=== PATIENT | male | born 1965 | race Caucasian/White ===

== ENCOUNTER 2017-09-08 08:45 | Day surgery (SDC) | payer BC ==
[2017-09-08 10:50] VITALS: BP 141/76; PULSE 76; RESP 20
--- NOTE | 2017-09-08 11:42 | US ---
EXAMINATION TYPE: US fine needle aspiration, US biopsy lymph node core biopsy DATE OF EXAM: 09/08/2017 HISTORY: Lymphadenopathy left axilla, axillary mass. Graft FINDINGS: Maximal barrier technique was ut ilized. The skin overlying a suitable path to the patient's mass was localized with ultrasound and t he overlying skin prepped and draped. Ultrasound was utilized with sterile technique. Lidocaine was used for local anesthesia. A single pass with a 25-gauge needle was made under ultrasound guidance a nd aspirated specimen submitted to cytology. A skin lala was made with a scalpel. An 18-gauge needl e was advanced under direct ultrasound guidance and core specimen obtained of the mass. Second core s pecimen obtained using similar technique. Specimen submitted in formalin to Pathology. Following the procedure, hemostasis achieved and the patient is discharged in stable condition without complicatio n. IMPRESSION:STATUS POST ULTRASOUND GUIDED CORE BIOPSY OF left axillary MASS, PATHOLOGY IS PENDING. TH IS PROCEDURE IS PERFORMED BY THE UNDERSIGNED.
== END 2017-09-08 10:50 | disposition home or self-care (01) ==
LOC: RADPROMAIN 08:45
PROVIDERS: ATTEND Internal Medicine Hematology & Oncology
DX: C85.14 Unspecified B-cell lymphoma, lymph nodes of axilla and upper limb (principal); C91.10 Chronic lymphocytic leukemia of B-cell type not having achieved remission
CPT/HCPCS: 10022; 38505; 76942; 88173; 88305; 88341; 88342

== ENCOUNTER 2018-06-24 20:11 | Observation (INO) | payer BC ==
[2018-06-24] MEDS ORDERED: ONDANSETRON 4 MG/2 ML VIAL IVP STA (20:57)
[2018-06-24] MEDS ORDERED: HYDROmorphone 1 MG/ML 1 ML SYRINGE IVP PRN ×2 (20:57→23:07)
[2018-06-24] MEDS ORDERED: SODIUM CHLORIDE 0.9% 1,000 ML IV STA (21:07)
[2018-06-24] MEDS ORDERED: SODIUM CHLORIDE 0.9% 500 ML 500 ML IV STA (21:07)
--- NOTE | 2018-06-24 21:16 | ED ---
General Adult HPI - General Chief complaint: Abdominal Pain Stated complaint: Abdominal Pain Source: patient, RN notes reviewed Mode of arrival: EMS Limitations: no limitations - History of Present Illness Initial comments: Chief complaint history of present illness a 53-year-old male with a known history of a reducible left inguinal hernia. Scheduled to have a herniorrhaphy in 5 days. Today low around 6:30 PM he developed acute severe tearing pain to the left inguinal region. Hernia doubled in size, size of a baseball and it was so painful made him pass out. Patient presents emergency room with a possible incarcerated hernia. Patient was immediately given analgesics, placed in Trendelenburg with an icepack on the inguinal region. Gentle manipulation cause discomfort. The case discussed with Dr. Espinal nutritional assistant for Dr. dr dejesus, he wants the patient to have a CAT scan with IV contrast only and lab work. - Related Data Home Medications Medication Instructions Recorded Confirmed Acetaminophen Tab [Tylenol] 1,000 mg PO Q8H 06/24/18 06/24/18 Calcium Carbonate [Tums] 500 mg PO QID 06/24/18 06/24/18 Herpes Med (Unknown) 1 dose 06/24/18 Sulfamethox-Tmp 800-160Mg [Bactrim 1 tab PO MOWEFR 06/24/18 06/24/18 DS 800-160 mg] Allergies Allergy/AdvReac Type Severity Reaction Status Date / Time amoxicillin [From Augmentin] AdvReac Nausea Verified 06/24/18 21:50 clavulanic acid AdvReac Nausea Verified 06/24/18 21:50 [From Augmentin] Review of Systems ROS Statement: Those systems with pertinent positive or pertinent negative responses have been documented in the HPI. Review of systems. The patient's only complaint is severe left inguinal region pain due to an incarcerated hernia. Past medical problems significant for currently being treated for leukemia last year was 10 days ago. The patient is a nonsmoker occasional alcohol use. Family history noncontributory. Surgeries include tonsillectomy. ROS Other: All systems not noted in ROS Statement are negative. Past Medical History Past Medical History: Cancer Additional Past Medical History / Comment(s): leukemia - last chemo 05/2018 History of Any Multi-Drug Resistant Organisms: None Reported Past Surgical History: Tonsillectomy Additional Past Surgical History / Comment(s): scar tissue removed from chin, hemmerhoid Past Anesthesia/Blood Transfusion Reactions: No Reported Reaction Additional Past Anesthesia/Blood Transfusion Reaction / Comment(s): slow to wake up post anaesthesia, no previous blood transfusion Past Psychological History: No Psychological Hx Reported Smoking Status: Never smoker Past Alcohol Use History: Occasional Past Drug Use History: None Reported - Past Family History Sister(s) Family Medical History: Cancer Additional Family Medical History / Comment(s): cervical General Exam - General Exam Comments Initial Comments: General: The patient is awake and alert, moderate distress when he moves. Severe pain to the left inguinal region where the patient has an incarcerated hernia. Vital signs show temperature 96.9 pulse 83 respiratory rate 20 pulse ox 90% room air blood pressure 144/76 Eye: Pupils are equal, round and reactive to light, extra-ocular movements are intact ; there is normal conjunctiva bilaterally. No signs of icterus. Ears, nose, mouth and throat: There are moist mucous membranes and no oral lesions. Neck: The neck is supple, there is no tenderness Cardiovascular: There is a regular rate and rhythm. No murmur, rub or gallop is appreciated. Respiratory: Lungs are clear to auscultation, respirations are non-labored, breath sounds are equal. No wheezes, stridor, rales, or rhonchi. Gastrointestinal: Patient presents with incarcerated left inguinal hernia. Currently unable to reduce it while the patient is in Trendelenburg, after analgesics and ice pack applied to the hernia. Psychiatric: Cooperative, appropriate mood & affect, normal judgment. Limitations: no limitations Course Vital Signs 06/24/18 20:25 Temperature 96.9 F L Pulse Rate 83 Respiratory 20 Rate Blood Pressure 144/76 O2 Sat by Pulse 96 Oximetry Medical Decision Making - Medical Decision Making Medical decision making; this is a 53-year-old male presents with an incarcerated left inguinal hernia. The pain was severe caused him to pass out when he had a tearing searing sensation approximately 6 PM this evening. Patient had an IV started is given pain medication. He was placed in Trendelenburg with ice packs on the inguinal hernia. The case discussed with Dr. Espinal. Patient had a CAT scan performed. The patient's labs show white count of 3.8 hemoglobin 12.8 hematocrit 37 with an INR 1.1. Patient's potassium is 4.1. BUN 17 creatinine 0.81 GFR that her 90. Glucose 103. Lactic acid elevated at 2.7. Amylase lipase within normal limits. The patient had CAT scan IV only. The radiologist reports that it incarcerated left sided inguinal hernia contains proximal sigmoid colon and fluid. It measures 7.6 x 5.8. No evidence of mechanical bowel obstruction. There is also a small fat containing umbilical hernia. He also reports splenomegaly. As reported by Dr. Herrera After returning from CAT scan. The patient continued to be kept in Trendelenburg with ice packs. The patient discomfort subsided slightly. I was able to reduce the incarcerated hernia. The case discussed with Dr. Espinal. He wants the patient admitted for 23 hour hold for evaluation in the morning for possible repair. - Lab Data Result diagrams: 06/24/18 20:40 06/24/18 20:40 Lab Results 06/24/18 06/24/18 06/24/18 Range/Units 20:40 20:40 20:40 WBC 3.8 (3.8-10.6) k/uL RBC 4.16 L (4.30-5.90) m/uL Hgb 12.8 L (13.0-17.5) gm/dL Hct 37.5 L (39.0-53.0) % MCV 90.3 (80.0-100.0) fL MCH 30.9 (25.0-35.0) pg MCHC 34.2 (31.0-37.0) g/dL RDW 16.2 H (11.5-15.5) % Plt Count 127 L (150-450) k/uL Neutrophils % 83 % Lymphocytes % 6 % Monocytes % 8 % Eosinophils % 1 % Basophils % 0 % Neutrophils # 3.1 (1.3-7.7) k/uL Lymphocytes # 0.2 L (1.0-4.8) k/uL Monocytes # 0.3 (0-1.0) k/uL Eosinophils # 0.1 (0-0.7) k/uL Basophils # 0.0 (0-0.2) k/uL Hyperchromasia Slight Poikilocytosis Slight Anisocytosis Slight PT 10.9 (9.0-12.0) sec INR 1.1 (<1.2) APTT 26.0 (22.0-30.0) sec Sodium 143 (137-145) mmol/L Potassium 4.1 (3.5-5.1) mmol/L Chloride 108 H (98-107) mmol/L Carbon Dioxide 23 (22-30) mmol/L Anion Gap 12 mmol/L BUN 17 (9-20) mg/dL Creatinine 0.81 (0.66-1.25) mg/dL Est GFR (CKD-EPI)AfAm >90 (>60 ml/min/1.73 sqM) Est GFR (CKD-EPI)NonAf >90 (>60 ml/min/1.73 sqM) Glucose 103 H (74-99) mg/dL Plasma Lactic Acid Jeb (0.7-2.0) mmol/L Calcium 10.0 (8.4-10.2) mg/dL Total Bilirubin 0.8 (0.2-1.3) mg/dL AST 18 (17-59) U/L ALT 22 (21-72) U/L Alkaline Phosphatase 46 (38-126) U/L Total Protein 7.1 (6.3-8.2) g/dL Albumin 4.3 (3.5-5.0) g/dL Amylase 56 (30-110) U/L Lipase 91 (23-300) U/L 06/24/ Range/Units 20:45 WBC (3.8-10.6) k/uL RBC (4.30-5.90) m/uL Hgb (13.0-17.5) gm/dL Hct (39.0-53.0) % MCV (80.0-100.0) fL MCH (25.0-35.0) pg MCHC (31.0-37.0) g/dL RDW (11.5-15.5) % Plt Count (150-450) k/uL Neutrophils % % Lymphocytes % % Monocytes % % Eosinophils % % Basophils % % Neutrophils # (1.3-7.7) k/uL Lymphocytes # (1.0-4.8) k/uL Monocytes # (0-1.0) k/uL Eosinophils # (0-0.7) k/uL Basophils # (0-0.2) k/uL Hyperchromasia Poikilocytosis Anisocytosis PT (9.0-12.0) sec INR (<1.2) APTT (22.0-30.0) sec Sodium (137-145) mmol/L Potassium (3.5-5.1) mmol/L Chloride (98-107) mmol/L Carbon Dioxide (22-30) mmol/L Anion Gap mmol/L BUN (9-20) mg/dL Creatinine (0.66-1.25) mg/dL Est GFR (CKD-EPI)AfAm (>60 ml/min/1.73 sqM) Est GFR (CKD-EPI)NonAf (>60 ml/min/1.73 sqM) Glucose (74-99) mg/dL Plasma Lactic Acid Jeb 2.7 H* (0.7-2.0) mmol/L Calcium (8.4-10.2) mg/dL Total Bilirubin (0.2-1.3) mg/dL AST (17-59) U/L ALT (21-72) U/L Alkaline Phosphatase (38-126) U/L Total Protein (6.3-8.2) g/dL Albumin (3.5-5.0) g/dL Amylase (30-110) U/L Lipase (23-300) U/L Disposition Clinical Impression: Incarcerated left inguinal hernia Disposition: ADMITTED IP TO THIS HOSP Condition: Fair Is patient prescribed a controlled substance at d/c from ED?: No Referrals: Nadine Croft DO [Primary Care Provider] - 1-2 days
[2018-06-24 21:30] LABS: Anisocytosis Slight; Basophils % (A) 0 %; Eosinophils # (A) 0.1 k/uL (0-0.7); Eosinophils % (A) 1 %; HCT 37.5 % (39.0-53.0); HGB 12.8 gm/dL (13.0-17.5); Hyperchromasia Slight; Lymphocytes # (A) 0.2 k/uL (1.0-4.8); Lymphocytes % (A) 6 %; MCH 30.9 pg (25.0-35.0); MCHC 34.2 g/dL (31.0-37.0); MCV 90.3 fL (80.0-100.0); Mean Platelet Volume 7.7; Monocytes # (A) 0.3 k/uL (0-1.0); Monocytes % (A) 8 %; Neutrophils # (A) 3.1 k/uL (1.3-7.7); Neutrophils % (A) 83 %; Platelet Count 127 k/uL (150-450); Poikilocytosis Slight; RBC 4.16 m/uL (4.30-5.90); RDW 16.2 % (11.5-15.5); WBC 3.8 k/uL (3.8-10.6)
[2018-06-24 21:46] LABS: ALT 22 U/L (21-72); AST 18 U/L (17-59); Albumin 4.3 g/dL (3.5-5.0); Alkaline Phosphatase 46 U/L (38-126); Amylase 56 U/L (30-110); Anion Gap 12 mmol/L; Blood Urea Nitrogen 17 mg/dL (9-20); Carbon Dioxide 23 mmol/L (22-30); Chloride 108 mmol/L (98-107); Glucose 103 mg/dL (74-99); Lipase 91 U/L (23-300); Potassium 4.1 mmol/L (3.5-5.1); Sodium 143 mmol/L (137-145); Total Bilirubin 0.8 mg/dL (0.2-1.3); Total Protein 7.1 g/dL (6.3-8.2)
[2018-06-24 21:50] LABS: INR 1.1 (<1.2); Prothrombin Time 10.9 sec (9.0-12.0)
--- NOTE | 2018-06-24 22:35 | CT ---
EXAMINATION TYPE: CT abdomen pelvis w con DATE OF EXAM: 06/24/2018 COMPARISON: None HISTORY: Inguinal hernia incarcerated CT DLP: mGycm Automated exposure control for dose reduction was used. TECHNIQUE: Helical acquisition of images was performed from the lung bases through the pelvis. CONTRAST: The contrast was Isovue 100 mL IV. FINDINGS: There is patchy atelectasis and scarring at the lung bases. Heart size is normal. There is no pleural effusion. There is no pericardial effusion. Spleen is enlarged and measures 16.7 cm. There are numer ous gallstones. There is irregular 2 cm hypodense area in the right lobe of the liver that could be h emangioma. This has delayed enhancement. The bile ducts are not dilated. There is no evidence of a pa ncreatic mass. There is no adrenal mass. Kidneys show satisfactory contrast opacification. There is no hydronephrosi s. Ureters are not dilated. Bladder distends smoothly. There is left-sided inguinal hernia that conta ins fluid and bowel. The bowel is not dilated. There is mild incarceration of the inguinal hernia. Pr ostate is enlarged and measures 5.6 cm. There is no mesenteric edema. There is no mesenteric adenopat hy. I see no intestinal wall thickening. The appendix appears normal. There is no sign of free air. T here is small umbilical hernia that contains fat. There is also a small cystic fluid collection in th e umbilical hernia fat that measures 1.5 cm. The bony pelvis appears intact. Lumbar spine appears int act. I see no bony destructive process. IMPRESSION: THERE IS INCARCERATED LEFT-SIDED INGUINAL HERNIA THAT CONTAINS PROXIMAL SIGMOID COLON AND FLUID. THE HERNIA MEASURES 7.6 X 5.8 CM. I DO NOT SEE EVIDENCE OF A MECHANICAL BOWEL OBSTRUCTION. THERE IS SMALL FAT-CONTAINING UMBILICAL HERNIA BUT ALSO HAS SMALL CYSTIC FLUID COLLECTION. SPLENOMEGALY. ENLARGED PROSTATE. FIBROTIC CHANGES AT THE LUNG BASES.
[2018-06-24] MEDS ORDERED: NALOXONE 0.4 MG/ML 1 ML VIAL IV PRN (23:07)
[2018-06-24 23:48] VITALS: PULSE 79
[2018-06-25 01:04] VITALS: BMI 28.2
[2018-06-25] MEDS: SODIUM CHLORIDE 0.9% 1,000 ML IV SCH ×2 (01:14→08:55)
--- NOTE | 2018-06-25 08:41 | P.GSHP ---
History of Present Illness H&P Date: 06/25/18 Chief Complaint: Left inguinal hernia 33-year-old male presents to the ER last night with pain left groin. The patient had a hernia that was initially nonreducible. A CAT scan was obtained which sigmoid colon within the hernia. The hernia was then able to be reduced by the ER staff. He was kept for observation. His lactic acid was initially elevated but that has normalized. He has mild soreness but much better than yesterday. He is hungry. He is actually scheduled for a robotic repair on Wednesday. - Review of Systems Comment: The patient denies any acute changes in vision or hearing, no dysphagia or odynophagia, no chest pain or shortness of breath, no dysuria or hematuria, no headache, no runny nose, no rectal bleeding or melena, no unexplained weight loss Past Medical History Past Medical History: Cancer Additional Past Medical History / Comment(s): leukemia - last chemo 05/2018 History of Any Multi-Drug Resistant Organisms: None Reported Past Surgical History: Tonsillectomy Additional Past Surgical History / Comment(s): scar tissue removed from chin, hemmerhoid Past Anesthesia/Blood Transfusion Reactions: No Reported Reaction Additional Past Anesthesia/Blood Transfusion Reaction / Comment(s): slow to wake up post anaesthesia, no previous blood transfusion Past Psychological History: No Psychological Hx Reported Smoking Status: Never smoker Past Alcohol Use History: Occasional Past Drug Use History: None Reported - Past Family History Sister(s) Family Medical History: Cancer Additional Family Medical History / Comment(s): cervical Medications and Allergies Home Medications Medication Instructions Recorded Confirmed Type Acetaminophen Tab [Tylenol] 1,000 mg PO Q8H 06/24/18 06/24/18 History Calcium Carbonate [Tums] 500 mg PO QID 06/24/18 06/24/18 History Herpes Med (Unknown) 1 dose 06/24/18 History Sulfamethox-Tmp 800-160Mg [Bactrim 1 tab PO MOWEFR 06/24/18 06/24/18 History DS 800-160 mg] Allergies Allergy/AdvReac Type Severity Reaction Status Date / Time amoxicillin [From Augmentin] AdvReac Nausea Verified 06/24/18 21:50 clavulanic acid AdvReac Nausea Verified 06/24/18 21:50 [From Augmentin] Surgical - Exam Vital Signs Temp Pulse Resp BP Pulse Ox 96.9 F L 83 20 144/76 96 06/24/18 20:25 06/24/18 20:25 06/24/18 20:25 06/24/18 20:25 06/24/18 20:25 Physical exam: General: Well-developed, well-nourished HEENT: Normocephalic, sclerae nonicteric Abdomen: Nontender, nondistended, no hernia incarcerated at this time, mild tenderness left groin Extremities: No edema Neuro: Alert and oriented Results - Labs 06/24/18 20:40 06/24/18 20:40 Abnormal Lab Results - Last 24 Hours (Table) 06/24/18 06/24/18 06/24/18 Range/Units 20:40 20:40 20:45 RBC 4.16 L (4.30-5.90) m/uL Hgb 12.8 L (13.0-17.5) gm/dL Hct 37.5 L (39.0-53.0) % RDW 16.2 H (11.5-15.5) % Plt Count 127 L (150-450) k/uL Lymphocytes # 0.2 L (1.0-4.8) k/uL Chloride 108 H (98-107) mmol/L Glucose 103 H (74-99) mg/dL Plasma Lactic Acid Jeb 2.7 H* (0.7-2.0) mmol/L Diabetes panel 06/24/18 Range/Units 20:40 Sodium 143 (137-145) mmol/L Potassium 4.1 (3.5-5.1) mmol/L Chloride 108 H (98-107) mmol/L Carbon Dioxide 23 (22-30) mmol/L BUN 17 (9-20) mg/dL Creatinine 0.81 (0.66-1.25) mg/dL Glucose 103 H (74-99) mg/dL Calcium 10.0 (8.4-10.2) mg/dL AST 18 (17-59) U/L ALT 22 (21-72) U/L Alkaline Phosphatase 46 (38-126) U/L Total Protein 7.1 (6.3-8.2) g/dL Albumin 4.3 (3.5-5.0) g/dL Calcium panel 06/24/18 Range/Units 20:40 Calcium 10.0 (8.4-10.2) mg/dL Albumin 4.3 (3.5-5.0) g/dL Pituitary panel 06/24/18 Range/Units 20:40 Sodium 143 (137-145) mmol/L Potassium 4.1 (3.5-5.1) mmol/L Chloride 108 H (98-107) mmol/L Carbon Dioxide 23 (22-30) mmol/L BUN 17 (9-20) mg/dL Creatinine 0.81 (0.66-1.25) mg/dL Glucose 103 H (74-99) mg/dL Calcium 10.0 (8.4-10.2) mg/dL Adrenal panel 06/24/18 Range/Units 20:40 Sodium 143 (137-145) mmol/L Potassium 4.1 (3.5-5.1) mmol/L Chloride 108 H (98-107) mmol/L Carbon Dioxide 23 (22-30) mmol/L BUN 17 (9-20) mg/dL Creatinine 0.81 (0.66-1.25) mg/dL Glucose 103 H (74-99) mg/dL Calcium 10.0 (8.4-10.2) mg/dL Total Bilirubin 0.8 (0.2-1.3) mg/dL AST 18 (17-59) U/L ALT 22 (21-72) U/L Alkaline Phosphatase 46 (38-126) U/L Total Protein 7.1 (6.3-8.2) g/dL Albumin 4.3 (3.5-5.0) g/dL Assessment and Plan (1) Incarcerated left inguinal hernia Narrative/Plan: Patient doing better at this time. Options discussed with the patient. We currently do not have an operating room crew that is fully trained for robotic hernia repair. For that reason we are discharging the patient with plans for elective repair by Dr. Powers this Wednesday. Current Visit: Yes Status: Acute Code(s): K40.30 - UNIL INGUINAL HERNIA, W OBST, W/O GANGR, NOT SPCF RECUR SNOMED Code(s): 072832811
[2018-06-25 08:54] VITALS: BP 113/66; RESP 20; TEMP 98.5
[2018-06-25 11:36] LABS: ALT 23 U/L (21-72); AST 17 U/L (17-59); Albumin 3.5 g/dL (3.5-5.0); Alkaline Phosphatase 37 U/L (38-126); Anion Gap 8 mmol/L; Blood Urea Nitrogen 12 mg/dL (9-20); Carbon Dioxide 27 mmol/L (22-30); Chloride 108 mmol/L (98-107); Glucose 113 mg/dL (74-99); Potassium 3.8 mmol/L (3.5-5.1); Sodium 143 mmol/L (137-145); Total Protein 6.2 g/dL (6.3-8.2)
[2018-06-25 12:17] LABS: Basophils % (A) 0 %; Eosinophils # (A) 0.1 k/uL (0-0.7); Eosinophils % (A) 4 %; HCT 35.7 % (39.0-53.0); HGB 12.8 gm/dL (13.0-17.5); Lymphocytes # (A) 0.2 k/uL (1.0-4.8); Lymphocytes % (A) 8 %; MCH 32.5 pg (25.0-35.0); MCHC 35.8 g/dL (31.0-37.0); MCV 90.8 fL (80.0-100.0); Mean Platelet Volume 7.9; Monocytes # (A) 0.2 k/uL (0-1.0); Monocytes % (A) 7 %; Neutrophils # (A) 1.8 k/uL (1.3-7.7); Neutrophils % (A) 79 %; Poikilocytosis Slight; RBC 3.94 m/uL (4.30-5.90); RDW 15.7 % (11.5-15.5); WBC 2.3 k/uL (3.8-10.6)
[2018-06-25 12:20] LABS: Platelet Count 109 k/uL (150-450)
[2018-06-25] MEDS ORDERED: CALCIUM CARBONATE 500 MG CHEWABLE PO PRN (14:16)
== END 2018-06-25 15:23 | disposition home or self-care (01) ==
LOC: EC 20:11 → 4SSUR 23:07
PROVIDERS: ADMIT Surgery; ATTEND Surgery
DX: K40.30 Unilateral inguinal hernia, with obstruction, without gangrene, not specified as recurrent (principal); C95.90 Leukemia, unspecified not having achieved remission; Z88.1 Allergy status to other antibiotic agents; Z88.0 Allergy status to penicillin; Z92.21 Personal history of antineoplastic chemotherapy; Z79.899 Other long term (current) drug therapy; Z79.2 Long term (current) use of antibiotics
CPT/HCPCS: 96361; 96374; 96375; 99285; 36415; 80053 ×2; 82150; 83605 ×2; 83690; 85025 ×2; 85610; 85730; 74177; G0378 ×2; J2405; J1170; Q9967

== ENCOUNTER 2018-06-29 08:37 | Observation (INO) | payer BC ==
[2018-06-27 08:55] VITALS: BMI 28.2
[~2018-06-29 08:37] MED LIST: DEXAMETHASONE SOD PHOSPHATE 10 MG/ML 1 ML VIAL IV ONE; HEPARIN SODIUM,PORCINE 5,000 UNIT/ML 1 ML VIAL SQ ONE; MIDAZOLAM 2 MG/2 ML VIAL IV PRN; ONDANSETRON 4 MG/2 ML VIAL IVP ONE; SCOPOLAMINE 1.5MG/72HR PATCH TRANSDERM ONE; ceFAZolin IN SWFI 2 GM/20 ML SYRINGE IVP ONE
[2018-06-29] MEDS: LACTATED RINGERS 1,000 ML IV SCH (10:00)
[2018-06-29] MEDS: LIDOCAINE 1% 20 ML VIAL (10MG/ML) FOR IV START INTRADERMA PRN ×2 (10:00→10:01)
--- NOTE | 2018-06-29 10:20 | P.GSHP ---
History of Present Illness H&P Date: 06/29/18 Chief Complaint: Left inguinal hernia, umbilical hernia This is a 53-year-old male referred from Earnest Bustillo PA-C. Patient presents today for laparoscopic robotic-assisted repair of left inguinal hernia and umbilical hernia. Patient developed a tender mass left groin as well as a 3 cm umbilical hernia. Past Medical History Past Medical History: Cancer, Renal Disease Additional Past Medical History / Comment(s): CLL currently receives chemo. hx kidney stones History of Any Multi-Drug Resistant Organisms: None Reported Past Surgical History: Tonsillectomy Additional Past Surgical History / Comment(s): hemorrhoidectomy Past Anesthesia/Blood Transfusion Reactions: Previous Problems w/ Anesthesia Additional Past Anesthesia/Blood Transfusion Reaction / Comment(s): slow to wake up post anaesthesia, no previous blood transfusion Smoking Status: Never smoker - Past Family History Sister(s) Family Medical History: Cancer Additional Family Medical History / Comment(s): cervical Medications and Allergies Home Medications Medication Instructions Recorded Confirmed Type Acetaminophen Tab [Tylenol] 1,000 mg PO Q8H PRN 06/24/18 06/29/18 History Calcium Carbonate [Tums] 500 mg PO QID 06/24/18 06/29/18 History Sulfamethox-Tmp 800-160Mg [Bactrim 1 tab PO MOWEFR 06/24/18 06/29/18 History DS 800-160 mg] Acyclovir [Zovirax] 400 mg PO BID 06/25/18 06/29/18 History Allergies Allergy/AdvReac Type Severity Reaction Status Date / Time amoxicillin [From Augmentin] AdvReac Nausea Verified 06/29/18 09:37 clavulanic acid AdvReac Nausea Verified 06/29/18 09:37 [From Augmentin] Surgical - Exam Vital Signs Temp Pulse Resp BP Pulse Ox 98.4 F 76 16 119/75 95 06/29/18 09:27 06/29/18 09:27 06/29/18 09:27 06/29/18 09:27 06/29/18 09:27 - General well developed, no distress - Eyes PERRL - ENT normal pinna - Neck no masses - Respiratory normal expansion - Cardiovascular Rhythm: regular - Abdomen Abdomen: soft, non tender Hernia: inguinal (Left), umbilical (3 cm umbilical hernia) Assessment and Plan Assessment: Umbilical hernia, left inguinal hernia. We will perform laparoscopic robotic- assisted repair.
--- NOTE | 2018-06-29 10:46 | P.ONQ ---
Anesthesiology Proc Note - PNB - Peripheral Nerve Block Performed Bilateral Transversus Abdominis Single Time Out Performed: Yes Procedure Start Time: Procedure Stop Time: Indication: Acute Post-Operative Pain, Requested by physician (Gio) Sedation Type: Sedate with meaningful contact maintained Preparation: Sterile Prep Position: Supine Catheter: None Needle Size: 100mm (4") Needle Gauge: 21 Technique: Ultrasound (image saved) Injectate: 0.5% Ropivacaine (see comment for volume) (30 ml) Blood Aspirated: No Pain Paresthesia on Injection Noted: No Resistance on Injection: Normal Events: Uneventful and Well Tolerated
[2018-06-29] MEDS ORDERED: LIDOCAINE 1% INJ 10MG/ML (20 ML MDV) ONE (10:48)
[2018-06-29] MEDS ORDERED: ROPIVACAINE 5 MG/ML 30 ML VIAL ONE (10:48)
[2018-06-29] MEDS ORDERED: NEOSTIGMINE 1 MG/ML 10 ML VIAL ONE (10:48)
[2018-06-29] MEDS ORDERED: ePHEDrine SULFATE/0.9% NACL/PF 50 MG/5 ML SYRINGE IV ONE (10:48)
[2018-06-29] MEDS ORDERED: fentaNYL (PF) 50 MCG/ML 2 ML AMP ONE (10:48)
[2018-06-29] MEDS ORDERED: PROPOFOL 10 MG/ML 20 ML VIAL IV ONE (10:48)
[2018-06-29] MEDS ORDERED: GLYCOPYRROLATE 0.2 MG/ML 2 ML VIAL ONE (10:48)
[2018-06-29] MEDS ORDERED: ROCURONIUM BROMIDE 10 MG/ML 10 ML VIAL IV ONE (10:48)
[2018-06-29] MEDS ORDERED: SUCCINYLCHOLINE CHLORIDE 100 MG/5 ML SYR IV ONE (10:48)
[2018-06-29] MEDS ORDERED: BUPIVACAIN-EPI 0.25%-1:200,000 30 ML VIAL SQ ONE (11:10)
[2018-06-29] MEDS ORDERED: ONDANSETRON 4 MG/2 ML VIAL IVP ONE (12:34)
[2018-06-29] MEDS: HYDROmorphone 0.5 MG/0.5 ML SYRINGE IVP PRN ×2 (12:34→12:41)
[2018-06-29] MEDS ORDERED: HYDROcodone/APAP 5-325MG 1 EACH TAB PO PRN (12:39)
[2018-06-29] MEDS ORDERED: traMADol 50 MG TAB PO PRN (12:39)
[2018-06-29] MEDS ORDERED: ONDANSETRON 4 MG/2 ML VIAL IVP PRN (12:39)
[2018-06-29] MEDS ORDERED: NALOXONE 0.4 MG/ML 1 ML VIAL IV PRN (12:39)
[2018-06-29] MEDS ORDERED: HYDROmorphone 1 MG/ML 1 ML SYRINGE IVP PRN (12:39)
[2018-06-29] MEDS ORDERED: LACTATED RINGERS 1,000 ML IV ONE (12:39)
--- NOTE | 2018-06-29 13:11 | P.OP ---
Date of Procedure: 06/29/18 Preoperative Diagnosis: Left inguinal hernia Umbilical hernia Postoperative Diagnosis: Umbilical hernia incarcerated Left inguinal hernia Cord lipoma Procedure(s) Performed: Laparoscopic robotic-assisted repair of left we'll hernia Laparoscopic repair of umbilical hernia Partial omentectomy Excision of left cord lipoma Anesthesia: GETA Estimated Blood Loss (ml): 10 Pathology: other (Omentum, left cord lipoma) Condition: stable Disposition: PACU Description of Procedure: The patient's placed on the operating table in the supine position. The patient received general anesthesia. The patient's abdomen was prepped and draped in usual sterile fashion. The skin was anesthetized 1% local Xylocaine at the incision sites. Using an 11 blade the skin was incised upper quadrant. The Veress needle was placed into the peritoneal cavity left quadrant. The abdomen was insufflated. After adequate insufflation the skin was incised at the umbilicus. And then using left cautery the incarcerated omentum and hernia sac were dissected and sent to pathology. The 5 ohmmeter trocar is placed into the perineal cavity. And then this was exchanged for an 8 mm robotic trocar. The Laparoscope was placed the peritoneal cavity. And a robotic 8 mm trocar was placed in the right lateral position and then another 8 mm robotic trochars placed in the left lateral position.. The patient was placed in reverse Trendelenburg and then the patient was docked to the robot. Next the peritoneum over top of the hernia was incised and then using blunt and sharp dissection and electrocautery the hernia sac was dissected free from the floor of the inguinal canal. A cord lipoma was dissected free from the cord. The hernia sac was completely reduced into the peritoneal cavity. And then using the Pro laser technician mesh the hernia was repaired. The peritoneum was then sutured with 20V lock suture. The patient was then undocked the robot. The needle was withdrawn from the peritoneal cavity. The umbilical hernia site was closed with 0 Ethibond suture. The skin was closed interrupted 3-0 Monocryl suture. Dermabond dressing was applied. Patient was sent to recovery in stable condition.
[2018-06-29] MEDS: KETOROLAC 30 MG/ML 1 ML VIAL IVP SCH ×2 (14:57→17:48)
[2018-06-30] MEDS: KETOROLAC 30 MG/ML 1 ML VIAL IVP SCH ×3 (00:29→13:00)
[2018-06-30] MEDS ORDERED: ENOXAPARIN 40 MG/0.4 ML SYRINGE SQ SCH (09:00)
--- NOTE | 2018-06-30 13:26 | P.DS ---
Providers Date of admission: 06/30/18 01:34 Expected date of discharge: 06/30/18 Attending physician: Angelo Powers Primary care physician: Nadine Croft [facility] Course: 53-year-old female who presented to undergo a laparoscopic robotic-assisted repair of a left inguinal hernia and umbilical hernia. Patient had developed a tender mass in the left groin as well as a 3 cm umbilical hernia. Patient has a history of receiving chemotherapy.CLL On the june patient underwent a left scapular repair the umbilical hernia, partial omentectomy excision of left cord lipoma for a left inguinal hernia and umbilical hernia no postop events Impression discharge diagnoses Laparoscopic robotic-assisted repair of left inguinal hernia, repair of umbilical hernia, partial omentectomy, excision of left cord lipoma done on June 29 CLL currently receiving chemotherapy Present on admission tender mass left groin as well as a 3 cm umbilical hernia The above impression and plan of care have been discussed and directed by signing physician. Regina Hartman nurse practitioner acting as scribe for signing physician. Plan - Discharge Summary Discharge Rx Participant: No New Discharge Prescriptions: New HYDROcodone/APAP 5-325MG [Lucernemines 5-325] 2 each PO Q6HR PRN #12 tab PRN Reason: Moderate To Severe Pain Continue Sulfamethox-Tmp 800-160Mg [Bactrim DS 800-160 mg] 1 tab PO MOWEFR Calcium Carbonate [Tums] 500 mg PO QID Acetaminophen Tab [Tylenol] 1,000 mg PO Q8H PRN PRN Reason: Pain Acyclovir [Zovirax] 400 mg PO BID Discharge Medication List Acetaminophen Tab [Tylenol] 1,000 mg PO Q8H PRN 06/24/18 [History] Calcium Carbonate [Tums] 500 mg PO QID 06/24/18 [History] Sulfamethox-Tmp 800-160Mg [Bactrim DS 800-160 mg] 1 tab PO MOWEFR 06/24/18 [ History] Acyclovir [Zovirax] 400 mg PO BID 06/25/18 [History] HYDROcodone/APAP 5-325MG [Lucernemines 5-325] 2 each PO Q6HR PRN #12 tab 06/30/18 [Rx] Follow up Appointment(s)/Referral(s): Angelo Powers MD [STAFF PHYSICIAN] - 07/07/18 2:40 pm Patient Instructions/Handouts: *Surgery [facility] - (Anesthesia) Discharge Instructions Outpatient Surgery, Laparoscopic Herniorrhaphy (DC), Inguinal Hernia Repair (DC) Discharge Disposition: HOME SELF-CARE
[2018-06-30 15:19] VITALS: BP 112/64; PULSE 81; RESP 15; TEMP 98.3
== END 2018-06-30 16:00 | disposition home or self-care (01) ==
LOC: OR 08:37 → 4SSUR 14:11 → OR 06-30 01:52
PROVIDERS: ADMIT Surgery; ATTEND Surgery
DX: K40.90 Unilateral inguinal hernia, without obstruction or gangrene, not specified as recurrent (principal); K42.9 Umbilical hernia without obstruction or gangrene; D17.6 Benign lipomatous neoplasm of spermatic cord; C91.10 Chronic lymphocytic leukemia of B-cell type not having achieved remission; Z87.442 Personal history of urinary calculi; Z92.21 Personal history of antineoplastic chemotherapy
CPT/HCPCS: 49650; 49652; S2900; 64488; 88302

== ENCOUNTER → 2019-01-12 | Outpatient (CLI) | payer BC ==
--- NOTE | 2019-01-12 08:25 | CT ---
EXAMINATION TYPE: CT brain w con DATE OF EXAM: 01/12/2019 COMPARISON: None HISTORY: Rt eyelid drooping CT DLP: 1054.2 mGycm Automated exposure control for dose reduction was used. CONTRAST: CT scan of the head is performed with IV Contrast, patient injected with 100 mL of Isovue 300. FINDINGS: There is no abnormal enhancing mass or midline shift identified. The ventricles and sulci are within normal limits in size. The globes are intact and the visualized sinuses are clear. Faint low-attenu ation within the white matter is nonspecific but may represent remote white matter ischemia. Prominen t cisterna magna small posterior fossa arachnoid cyst. No enhancing masses. IMPRESSION: Minimal nonspecific white matter changes most typical remote microvascular ischemia. No enhancing mas ses. If symptoms persist consider MRI..
== END | disposition home or self-care (01) ==
LOC: RADCTMAIN 07:10
PROVIDERS: ATTEND Family Medicine
DX: H02.409 Unspecified ptosis of unspecified eyelid (principal); R90.82 White matter disease, unspecified
CPT/HCPCS: 70460; Q9967

== ENCOUNTER → 2022-01-14 | Outpatient (CLI) | payer BC ==
[2022-01-14 23:24] LABS: African American GFR (CKD) 105.9 (60.0-200.0); Blood Urea Nitrogen 11.1 mg/dL (9.0-27.0); Non-African American GFR(CKD) 91.4 (60.0-200.0)
== END | disposition home or self-care (01) ==
LOC: LABWHC1 14:51
PROVIDERS: ATTEND Physician Assistant
DX: R31.0 Gross hematuria (principal)
CPT/HCPCS: 36415; 82565; 84520

== ENCOUNTER → 2022-01-23 | Outpatient (CLI) | payer BC ==
--- NOTE | 2022-01-23 09:36 | CT ---
EXAMINATION TYPE: CT ChestAbdPelvis w con DATE OF EXAM: 01/23/2022 COMPARISON: Abdomen pelvis 06/24/2018 HISTORY: 56 year-old male C91.10, chronic lymphocytic leukemia of b-cell TECHNIQUE: Contiguous axial scanning of the chest, abdomen, and pelvis performed with IV Contrast, pa tient injected with 70 mL of Isovue 300. Delayed images through the kidneys were obtained. Coronal/sa gittal reconstructions performed. CT DLP: 1687.3 mGycm Automated exposure control for dose reduction was used. FINDINGS: CHEST: The heart is normal size without pericardial effusion. Aorta normal caliber with conventional arch also branching anatomy. Left hilar lymph node measures 1.7 cm. Numerous bilateral axillary lymph nodes are noted measuring up to 2.4 cm. These extend up into the me dial upper arm on the left. Large caliber to the main right and left pulmonary arteries measuring up to 2.9 cm suggesting underly ing pulmonary arterial hypertension. 1.1 cm vague nodule lateral right midlung axial image 17. 6 mm peripheral left basilar pulmonary nodule not clearly seen previously. Background mild emphysematous change. No consolidation or pleural effusion. Strandy atelectasis or sc arring in the lower lungs. ABDOMEN: Liver enlarged at 22.9 cm versus 24.4 cm, previously. No focal lesion seen. Numerous nonradiopaque gallstones filling the gallbladder lumen. No abnormal gallbladder distention. Portal venous system is patent. No biliary ductal dilatation. Adrenal glands, kidneys, and pancreas appear within normal limits. Marked splenomegaly up to 22.6 cm versus 21.7 cm, previously. Numerous scattered nonenlarged and borderline sized retroperitoneal nodes measuring up to 1.0 cm are increased/new. Mildly enlarged nodes continue along the bilateral iliac chains measuring up to 1.3 cm on the left and 1.5 cm on the right. No dilated small bowel, free fluid, or free air. Moderate stool burden. No pericolonic inflammatory change. PELVIS: Circumferential bladder wall thickening. Prostate gland now measures 6.0 cm wide versus 5.5 cm, previ ously. There has been interval repair of the patient's previous left inguinal hernia but now with a i nguinal lymphadenopathy measuring up to 3.9 cm on either side. There appears to be fat containing rig ht hernia now present. No abnormal fluid collection the pelvis. BONES: Mild degenerative change of the hips. No osseous destructive process. IMPRESSION: 1. Bilateral axillary lymphadenopathy measuring up to 2.4 cm. Numerous nonenlarged and borderline siz ed retroperitoneal lymph nodes measuring up to 1.0 cm. Mildly enlarged lymph nodes along the bilatera l iliac chains measuring up to 1.5 cm. Bilateral inguinal lymphadenopathy measuring up to 3.9 cm. Fin dings likely relate to the patient's reported leukemia. 2. Hepatosplenomegaly (liver 22.9 cm and spleen 22.6 cm). 3. A 1.1 cm vague nodule right midlung could represent a small leukemic infiltrate. A 6 mm left basil ar pulmonary nodule is also noted. 4. Incidental: COPD with mild emphysema. Pulmonary arterial hypertension. Extensive cholelithiasis. P rostatomegaly increased at 6.0 cm versus 5.5 cm, previously. Circumferential bladder wall thickening likely chronic wall hypertrophy. Interval repair of the patient's left inguinal hernia. Development o f a fatty right inguinal hernia.
== END | disposition home or self-care (01) ==
LOC: RADCTMAIN 06:45
PROVIDERS: ATTEND Internal Medicine Hematology & Oncology
DX: N32.89 Other specified disorders of bladder (principal); K40.30 Unilateral inguinal hernia, with obstruction, without gangrene, not specified as recurrent; K80.20 Calculus of gallbladder without cholecystitis without obstruction; J43.9 Emphysema, unspecified
CPT/HCPCS: 71260; 74177; Q9967 ×2

== ENCOUNTER → 2022-03-13 | Outpatient (CLI) | payer BC ==
--- NOTE | 2022-03-13 14:17 | PE ---
EXAMINATION TYPE: PET CT fusion skull to thigh DATE OF EXAM: 03/13/2022 COMPARISON: NONE HISTORY: History of CLL diagnosed 5 years ago, recent abnormal CT. TECHNIQUE: Following the intravenous administration of 11.36 mCi of F-18 FDG, whole body images are performed from the skull base to the midthigh. Images are reviewed on the computer in the coronal, a xial, and sagittal planes. Reconstructed rotating images are created on independent workstation and reviewed on the computer. A localization and attenuation correction CT is performed in conjunction with the PET scan. Blood glucose level equals 95. SCAN: Initial Scan FINDINGS: Mean SUV mediastinum: 1.04 Mean SUV liver: 2.17 SKULL BASE AND NECK: No areas of abnormal hypermetabolic uptake. CHEST, MEDIASTINUM, AND HILAR REGION: Corresponding to most recent CT there are enlarged bilateral ax illary lymph nodes with max SUV on the right 2.95 on axial image 94 and max SUV 2.65 on the left on a xial image 95. No abnormal hypermetabolic lymph nodes in the hilar or mediastinal region. ABDOMEN AND PELVIS: Prominent right hepatic lobe redemonstrated. Significant splenomegaly seen. No liang spicious hypermetabolic uptake in the spleen. Few prominent retroperitoneal lymph nodes, max SUV left periaortic subcentimeter lymph node axial image 186 is under 1.00. No suspicious hypermetabolic upta ke in slightly prominent inguinal lymph nodes. More prominent bilateral groin lymph nodes have max LIANG V 2.09 on the right. OSSEOUS STRUCTURES: No suspicious abnormal hypermetabolic uptake. OTHER CT: Enlarged prostate consistent with BPH. IMPRESSION: Nonspecific findings. Recurrent neoplasm cannot be excluded in the bilateral axillary reg ions. Correlate clinically.
== END | disposition home or self-care (01) ==
LOC: RADPETMAIN 07:35
PROVIDERS: ATTEND Internal Medicine Hematology & Oncology
DX: C83.08 Small cell B-cell lymphoma, lymph nodes of multiple sites (principal)
CPT/HCPCS: 78815; A9552

== ENCOUNTER → 2022-06-26 | Outpatient (CLI) | payer BC ==
[~2022-06-26] MED LIST changes: -DEXAMETHASONE SOD PHOSPHATE 10 MG/ML 1 ML VIAL IV ONE; -HEPARIN SODIUM,PORCINE 5,000 UNIT/ML 1 ML VIAL SQ ONE; -MIDAZOLAM 2 MG/2 ML VIAL IV PRN; -ONDANSETRON 4 MG/2 ML VIAL IVP ONE; -SCOPOLAMINE 1.5MG/72HR PATCH TRANSDERM ONE; +TIXAGEVIMAB/CILGAVIMAB (EUA) 300 MG/3 ML COMBO.PKG IM ONE; -ceFAZolin IN SWFI 2 GM/20 ML SYRINGE IVP ONE
[2022-06-26 08:15] VITALS: RESP 16
[2022-06-26 08:56] VITALS: BP 118/73; PULSE 79; TEMP 98
== END ==
LOC: PROCWHC3 07:33
PROVIDERS: ATTEND Internal Medicine Hematology & Oncology
DX: Z23 Encounter for immunization (principal); Z88.0 Allergy status to penicillin; Z88.1 Allergy status to other antibiotic agents
CPT/HCPCS: Q0220; M0220

== ENCOUNTER → 2023-08-19 | Outpatient (CLI) | payer BC ==
--- NOTE | 2023-08-19 11:34 | PE ---
EXAMINATION TYPE: PET CT fusion skull to thigh DATE OF EXAM: 08/19/2023 CLINICAL INDICATION:Male, 58 years old with history of C91.10 Leukemia; TECHNIQUE: Following the intravenous administration of 11.6 mCi of F-18 FDG, whole body images are performed from the skull base to the midthigh. Images are reviewed on the computer in the coronal, a xial, and sagittal planes. Reconstructed rotating images are created on independent workstation and reviewed on the computer. A non-contrast CT is performed in conjunction with the PET scan. Glucose level 98 mg/dL CT DLP: 71 mGycm, Automated exposure control for dose reduction was used. COMPARISON: CT 01/23/2022., PET/CT 03/13/2022, FINDINGS: Mediastinal SUV mean is 2.0.. Hepatic parenchyma SUV mean is 2.5 SKULL BASE AND NECK: Scattered prominent lymph nodes are seen throughout the neck bilaterally the largest in the left infe riorly measuring up to 19 mm and on the right measuring up to 9 mm. Max SUV on the left 4.4 on the ri ght 2.0. CHEST, MEDIASTINUM, AND HILAR REGION: * Axillary lymph nodes which are enlarged CBD on the right dominant large5.3, previously 2.5r is lar alexy measuring 20 mm in short axis, previously 11 mm in short axis. * On the left anterior measuring 14 mm short axis max SUV 3.2 this specifically lymph node not defin itively correlates with prior and may be new. * Lymph node in the right low paratracheal region max 3 2.813 mm short axis, previously measuring 8 mm in short axis max SUV 1.6. Other scattered mediastinal FDG avid lymph nodes are present. * Right lower lobe pulmonary nodule measuring 5 mm is stable from prior. ABDOMEN AND PELVIS: * Lymph node nodes with mildly increased FDG activity: example: * near the left aorta max SUV 2.5 measuring up to 12 mm series 3 image 191. * Right inguinal lymph node max SUV 5.2 on the left 3.1. Measuring up to 20 mm in short axis on the right and 27 mm in short axis on the left. * Left external iliac measuring 21 mm Max SUV 3.2. * Right external iliac max SUV 3.5 measuring 9 mm. * Previous metabolic activity max SUV 4.6, previously 2.2. MUSCULOSKELETAL STRUCTURES: No suspicious radiotracer activity. OTHER CT: The spleen is increased in size. Measuring up to 19.5 cm, previously 16.8 cm. Cholelithiasi s. Scattered colonic diverticula. Prostatomegaly. Fat-containing inguinal hernias. Fat-containing umb ilical hernia. Heart is mildly enlarged for size. Streaky atelectasis throughout the lungs with scarr ing bases. Degeneration changes throughout this spine. IMPRESSION: 1. Progression of disease with Scattered FDG avid lymph nodes compatible with malignancy. This is in creased compared to prior on 03/13/2022 is concerning for recurrence. 2. Splenomegaly with increasing metabolic activity concerning for involvement of the spleen.
== END | disposition home or self-care (01) ==
LOC: RADPETMAIN 08:01
PROVIDERS: ATTEND Internal Medicine Hematology & Oncology
DX: C91.10 Chronic lymphocytic leukemia of B-cell type not having achieved remission (principal); R16.1 Splenomegaly, not elsewhere classified
CPT/HCPCS: 78815; A9552

== ENCOUNTER → 2024-03-23 | Outpatient (CLI) | payer BC ==
--- NOTE | 2024-03-24 10:54 | PE ---
EXAMINATION TYPE: PET CT fusion skull to thigh DATE OF EXAM: 03/23/2024 CLINICAL INDICATION:Male, 58 years old with history of C91.10 Lymphoma; TECHNIQUE: Following the intravenous administration of 10.72 mCi of F-18 FDG, whole body images are performed from the skull base to the midthigh. Images are reviewed on the computer in the coronal, axial, and sagittal planes. Reconstructed rotating images are created on independent workstation and reviewed on the computer. A non-contrast CT is performed in conjunction with the PET scan. Glucose level 101 mg/dL CT DLP: 816 mGycm, Automated exposure control for dose reduction was used. COMPARISON: CT None, PET/CT 03/13/2022, 08/19/2023, MRI: None FINDINGS: Mediastinal SUV mean is 1.83. Hepatic parenchyma SUV mean is 2.3 SKULL BASE AND NECK: Scattered bilateral neck lymph nodes with increased compared to prior max SUV on the right 5.0 and on the left 7.8, previously 3.2 on the right and 3.7 on the left. CHEST, MEDIASTINUM, AND HILAR REGION: Enlarging axillary lymph nodes with increased embolic activity on the right max SUV 8.7, previously 4.8 and on the left Max SUV 9.1, previously 3.5. The largest in the right axilla now measuring 34 mm in short axis, previously 15 mm and on the left measuring up to 9 mm in short axis previously 14 mm. * Right pulmonary hilum lymph nodes max SUV 8.9, previously 3.6. * Left pulmonary hilum lymph nodes max SUV 5.5, previously 2.6. Short axis * Increasing metabolic activity of mediastinal lymph nodes AP window max SUV 5.4, previously 2.4 jacqueline suring 9 mm, previously 5 mm. ABDOMEN AND PELVIS: Increasing lymph node size and metabolic activity example includes: * Lymph node anterior to the liver under the diaphragm max SUV 4.3, previously 3.3. Diffuse lymphade nopathy throughout the retroperitoneum with increased metabolic activity max SUV 5.6 on the left, pre viously 3.1. * Right inguinal lymph node max SUV 8.8, previously 3.5. MUSCULOSKELETAL STRUCTURES: No suspicious radiotracer activity. OTHER CT: The spleen is increased in size. Measuring up to 21.6 which is similar to slightly increase d in size given differences in measuring location. Cholelithiasis. Scattered colonic diverticula. Pro statomegaly. Fat-containing inguinal hernias. Fat-containing umbilical hernia. Heart is mildly enlarg ed for size. Streaky atelectasis throughout the lungs with scarring bases. Degeneration changes throu ghout this spine. IMPRESSION: 1. Progression of disease with increasing size and FDG activity of the lymphadenopathy throughout th e neck, chest, abdomen and pelvis. 2. Interval increased slightly in Splenomegaly with increasing metabolic activity concerning for inv olvement of the spleen.
== END | disposition home or self-care (01) ==
LOC: RADPETMAIN 13:06
PROVIDERS: ATTEND Internal Medicine Hematology & Oncology
DX: C91.10 Chronic lymphocytic leukemia of B-cell type not having achieved remission (principal); R16.1 Splenomegaly, not elsewhere classified; Z85.72 Personal history of non-Hodgkin lymphomas
CPT/HCPCS: 78815; A9552

== ENCOUNTER 2024-04-06 10:59 | Day surgery (SDC) | payer BC ==
[~2024-04-06 10:59] MED LIST changes: +HYDROmorphone 0.5 MG/0.5 ML SYRINGE IVP PRN; +LACTATED RINGERS 1,000 ML IV SCH; +LIDOCAINE 1% (10MG/ML) FOR IV START INTRADERMA PRN; +Pre Op ABX Message 1 EACH MISC MISCELLANE ONE; -TIXAGEVIMAB/CILGAVIMAB (EUA) 300 MG/3 ML COMBO.PKG IM ONE; +droPERidol 5 MG/2 ML VIAL IVP ONE
[2024-04-06] MEDS: IV FLUID CONTINUATION 1,000 ML IV ONE (11:44)
[2024-04-06 11:48] LABS: Glucose,Whole Blood 99 mg/dL (70-110)
[2024-04-06] MEDS: HEPARIN SODIUM,PORCINE 5,000 UNIT/ML 1 ML VIAL SQ PRN (11:50)
[2024-04-06] MEDS: ONDANSETRON 4 MG/2 ML VIAL IVP ONE (11:50)
[2024-04-06] MEDS: ACETAMINOPHEN TAB 500 MG TAB PO PRN (11:51)
[2024-04-06] MEDS: DEXAMETHASONE SOD PHOSPHATE 4 MG/ML 1 ML VIAL IV ONE (11:51)
[2024-04-06] MEDS: SCOPOLAMINE 1 MG/72 HR PATCH TRANSDERM ONE (11:58)
--- NOTE | 2024-04-06 12:26 | P.GSHP ---
History of Present Illness H&P Date: 04/06/24 Chief Complaint: Lymphadenopathy 58-year-old male with history of CLL. Patient had some recent enlarging lymph nodes that became more symptomatic. We were asked to proceed with lymph node excisional biopsy to evaluate for progression. Patient last had chemotherapy 2017. Says he started steroids recently and the lymph nodes have decreased slightly in size. Past Medical History Past Medical History: Cancer Additional Past Medical History / Comment(s): leukemia - last chemo 05/2018, blood counts abnormal. enlarged lymph node History of Any Multi-Drug Resistant Organisms: None Reported Past Surgical History: Hernia Repair, Tonsillectomy Additional Past Surgical History / Comment(s): scar tissue removed from chin, hemorrhoids. Left inguinal hernia repair Past Anesthesia/Blood Transfusion Reactions: Postoperative Nausea & Vomiting (PONV) Additional Past Anesthesia/Blood Transfusion Reaction / Comment(s): slow to wake up post anesthesia, no previous blood transfusion Smoking Status: Former smoker - Past Family History Sister(s) Family Medical History: Cancer Additional Family Medical History / Comment(s): cervical Medications and Allergies Home Medications Medication Instructions Recorded Confirmed Type Acetaminophen Tab [Tylenol] 1,000 mg PO Q8H PRN 06/24/18 04/06/24 History Ergocalciferol [Vitamin D2 (1250 1,250 mcg PO WEEKLY 06/26/22 04/06/24 History Mcg = 13936 Iu)] Tamsulosin HCl [Flomax] 0.4 mg PO DAILY 06/26/22 04/06/24 History Unk Multi Vitamin 1 tab PO DAILY 04/05/24 04/05/24 History Venetoclax Pom [Venclexta Pom 1 tab PO DAILY 04/05/24 04/05/24 History Starting Pack (10mg/100mg/50mg)] allopurinoL [Allopurinol] 300 mg PO DAILY 04/05/24 04/06/24 History Allergies Allergy/AdvReac Type Severity Reaction Status Date / Time amoxicillin [From Augmentin] AdvReac Nausea Verified 04/06/24 11:29 clavulanic acid AdvReac Nausea Verified 04/06/24 11:29 [From Augmentin] Surgical - Exam Vital Signs Temp Pulse Resp BP Pulse Ox 98.8 F 91 16 117/54 97 04/06/24 11:39 04/06/24 11:39 04/06/24 11:39 04/06/24 11:39 04/06/24 11:39 Physical exam: General: Well-developed, well-nourished HEENT: Normocephalic, sclerae nonicteric Abdomen: Nontender, nondistended Extremities: No lysed lymphadenopathy, 4 to 5 cm lymph node right axilla along with other smaller lymph nodes present Neuro: Alert and oriented Assessment and Plan (1) Lymphadenopathy Narrative/Plan: Will proceed with right axillary lymph node excisional biopsy. Risks of bleeding, infection, seroma, nerve injury, numbness, possible need for further biopsies discussed. He understands and wishes to proceed. Current Visit: Yes Status: Acute Code(s): R59.1 - GENERALIZED ENLARGED LYMPH NODES SNOMED Code(s): 14553688
[2024-04-06] MEDS ORDERED: PHENYLEPHRINE 10 MG/ML VIAL ONE (12:35)
[2024-04-06] MEDS ORDERED: MIDAZOLAM 2 MG/2 ML VIAL ONE (12:35)
[2024-04-06] MEDS ORDERED: fentaNYL (PF) 50 MCG/ML 2 ML AMP ONE (12:35)
[2024-04-06] MEDS ORDERED: PROPOFOL 10 MG/ML 20 ML VIAL IV ONE (12:35)
[2024-04-06] MEDS ORDERED: LIDOCAINE 1% INJ 10MG/ML (20 ML MDV) ONE (12:35)
[2024-04-06] MEDS: SODIUM CHLORIDE 0.9% 100 ML with ceFAZolin 2,000 MG IV ONE (12:49)
[2024-04-06] MEDS: BUPIVACAINE (PF) 0.25% 30 ML VIAL SQ ONE ×2 (12:51)
[2024-04-06] MEDS ORDERED: NALOXONE 0.4 MG/ML 1 ML VIAL IV PRN (13:35)
[2024-04-06] MEDS ORDERED: ACETAMINOPHEN TAB 325 MG TAB PO PRN (13:35)
[2024-04-06] MEDS ORDERED: HYDROcodone/APAP 5-325MG 1 EACH TAB PO PRN (13:35)
--- NOTE | 2024-04-06 13:39 | P.OP ---
Date of Procedure: 04/06/24 Procedure(s) Performed: PREOPERATIVE DIAGNOSIS: Right axillary lymphadenopathy POSTOPERATIVE DIAGNOSIS: Same PROCEDURE: Excisional biopsy of right axillary lymph node x 2 SURGEON: Philippe EBL: 5 cc ANESTHESIA: General COMPLICATIONS: None OPERATIVE PROCEDURE: Patient placed on the operative table in the supine position per the patient's right axilla was prepped and draped sterilely. A horizontal incision was made overlying the largest palpable lymph node. Dissection through the subcutaneous tissues took place using electrocautery. The patient had 2 adjacent lymph nodes both removed. The smaller 1 was about 2.5 cm the larger one was about 5 cm in size. These were both sent to pathology as fresh specimens for lymphoma workup. Small vessels entering these lymph nodes were clipped. Gelfoam powder was used in the operative site after irrigating with saline. The subcutaneous layer was closed using 3-0 Vicryl sutures and the skin using a running 4-0 Monocryl stitch. Skin glue and sterile dressings applied. DISPOSITION: Stable to recovery room
[2024-04-06 13:43] VITALS: TEMP 97.2
[2024-04-06 14:42] VITALS: RESP 18
[2024-04-06 14:46] VITALS: BP 107/58; PULSE 70
[2024-04-06] MEDS ORDERED: KETOROLAC 15 MG/ML 1 ML VIAL IVP SCH (18:00)
== END 2024-04-06 14:50 | disposition home or self-care (01) ==
LOC: OR 10:59
PROVIDERS: ATTEND Surgery
DX: C91.10 Chronic lymphocytic leukemia of B-cell type not having achieved remission (principal); Z87.891 Personal history of nicotine dependence; Z88.0 Allergy status to penicillin; Z88.1 Allergy status to other antibiotic agents; Z90.89 Acquired absence of other organs; Z98.890 Other specified postprocedural states
CPT/HCPCS: 88342; 88307; 88341; 38500; J2250; J1644; J1100; J2405; J0690; J2001; J3010; J2704; J2371; J0665

== ENCOUNTER 2024-04-12 13:18 | Inpatient (IN) | payer BC ==
--- NOTE | 2024-04-12 13:40 | ED ---
General Adult HPI - General Source: patient, RN notes reviewed Mode of arrival: ambulatory Limitations: no limitations <Ewa Casas - Last Filed: 04/12/24 13:39> <Varghese Rubio - Last Filed: 04/12/24 17:30> - General Chief complaint: Shortness of Breath Stated complaint: Fever,SOB Time Seen by Provider: 04/12/24 13:30 - History of Present Illness Initial comments: Quick [id number] male presents emergency department chief complaint of cough, fever, shortness of breath since Wednesday. Patient had a biopsy of a right axillary lymph node 2 days ago and states that he is going to begin cancer treatment for CLL on Wednesday (Ewa Casas) - Related Data Home Medications Medication Instructions Recorded Confirmed Tamsulosin HCl [Flomax] 0.4 mg PO DAILY 06/26/22 04/12/24 Venetoclax Pom [Venclexta Pom 1 tab PO DIRECTED 04/05/24 04/12/24 Starting Pack (10mg/100mg/50mg)] allopurinoL [Allopurinol] 300 mg PO DAILY 04/05/24 04/12/24 Acyclovir [Zovirax] 400 mg PO BID 04/12/24 04/12/24 Cholecalciferol [Vitamin D3 (125 125 mcg PO DAILY 04/12/24 04/12/24 Mcg = 5000 Iu)] Cranberry Fruit Extract [Cranberry] 500 mg PO DAILY 04/12/24 04/12/24 Multivitamins, Thera [Multivitamin 1 tab PO DAILY 04/12/24 04/12/24 (formulary)] Omeprazole [PriLOSEC] 40 mg PO DAILY 04/12/24 04/12/24 Ondansetron Odt [Zofran Odt] 4 - 8 mg PO Q4-6H PRN 04/12/24 04/12/24 levoFLOXacin 500 mg PO DAILY 04/12/24 04/12/24 Previous Rx's Medication Instructions Recorded oxyCODONE HCL [OxyIR] 5 mg PO Q6H PRN 3 Days #6 tab 04/06/24 Allergies Allergy/AdvReac Type Severity Reaction Status Date / Time No Known Allergies Allergy Verified 04/12/24 15:10 Review of Systems ROS Other: All systems not noted in ROS Statement are negative. <Ewa Casas - Last Filed: 04/12/24 13:39> ROS Other: All systems not noted in ROS Statement are negative. <Varghese Rubio - Last Filed: 04/12/24 17:30> ROS Statement: Those systems with pertinent positive or pertinent negative responses have been documented in the HPI. Past Medical History Past Medical History: Cancer Additional Past Medical History / Comment(s): leukemia - last chemo 05/2018, blood counts abnormal. enlarged lymph node. CLL (tx starts Tuesday 04/17) History of Any Multi-Drug Resistant Organisms: None Reported Past Surgical History: Hernia Repair, Tonsillectomy Additional Past Surgical History / Comment(s): scar tissue removed from chin, hemorrhoids. Left inguinal hernia repair Past Anesthesia/Blood Transfusion Reactions: Postoperative Nausea & Vomiting (PONV) Additional Past Anesthesia/Blood Transfusion Reaction / Comment(s): slow to wake up post anesthesia, no previous blood transfusion Past Psychological History: No Psychological Hx Reported Smoking Status: Former smoker - Past Family History Sister(s) Family Medical History: Cancer Additional Family Medical History / Comment(s): cervical <Ewa Casas - Last Filed: 04/12/24 13:39> General Exam Limitations: no limitations <Ewa Casas - Last Filed: 04/12/24 13:39> - General Exam Comments Initial Comments: Visual Physical Exam Vital signs reviewed General: Well-appearing, nontoxic, no acute distress. Head: Normocephalic, atraumatic Eyes: PERRLA, EOMI ENT: Airway patent Chest: Nonlabored breathing Skin: No visual rash, normal skin tone Neuro: Alert and oriented 3 Musculoskeletal: No gross abnormalities (Ewa Casas) Course Vital Signs 04/12/24 13:28 Temperature 99.5 F Pulse Rate 108 H Respiratory 18 Rate Blood Pressure 99/54 O2 Sat by Pulse 98 Oximetry Medical Decision Making <Ewa Casas - Last Filed: 04/12/24 13:39> - Lab Data Result diagrams: 04/12/24 14:14 04/12/24 14:14 <Varghese Rubio - Last Filed: 04/12/24 17:30> - Medical Decision Making I completed the quick note portion of this chart signed Ewa Casas PA-C (Ewa Casas) Was pt. sent in by a medical professional or institution (LES Maher, INFORMATION ASSURANCE SPECIALIST, urgent care, hospital, or chcf...) When possible be specific @ -No Did you speak to anyone other than the patient for history (EMS, parent, family, police, friend...)? What history was obtained from this source @ -No Did you review nursing and triage notes (agree or disagree)? Why? @ -I reviewed and agree with nursing and triage notes Were old charts reviewed (outside hosp., previous admission, EMS record, old EKG, old radiological studies, urgent care reports/EKG's, chcf records)? Report findings @ -No old charts were reviewed Differential Dyspnea: Coronary syndrome, arrhythmia, tamponade, asthma, COPD, pulmonary embolism, pneumonia, pneumothorax, pulmonary effusion, anaphylaxis, diabetic ketoacidosis, flailed chest, pulmonary contusion, diaphragmatic rupture, anemia, neuromuscular, this is not meant to be an all-inclusive list. EKG interpreted by me (3pts min.). @ -Sinus tachycardia rate of 101, MI interval 144, QRS duration 94, QTc 397, no ST segment elevation. X-rays interpreted by me (1pt min.). @ -Chest x-ray negative for focal pneumonia CT interpreted by me (1pt min.). @ -None done U/S interpreted by me (1pt. min.). @ -Gallbladder ultrasound showing gallstones without secondary signs of acute cholecystitis What testing was considered but not performed or refused? (CT, X-rays, U/S, labs)? Why? @ -None What meds were considered but not given or refused? Why? @ -None Did you discuss the management with other professionals (professionals i.e. LES Maher, INFORMATION ASSURANCE SPECIALIST, lab, RT, psych nurse, long term care social worker, outplacement consultant, teacher, bomb squad officer, trimming caser)? Give summary @ -Dr. Gaffney, will admit, DAvidcovering for Dr. Tian Was smoking cessation discussed for >3mins.? @ -No Was critical care preformed (if so, how long)? @ yes 35 min Were there social determinants of health that impacted care today? How? (Homelessness, low income, unemployed, alcoholism, drug addiction, transportation, low edu. Level, literacy, decrease access to med. care, chcf, rehab)? @ -No Was there de-escalation of care discussed even if they declined (Discuss DNR or withdrawal of care, Hospice)? DNR status @ -No What co-morbidities impacted this encounter? (DM, HTN, Smoking, COPD, CAD, Cancer, CVA, ARF, Chemo, Hep., AIDS, mental health diagnosis, sleep apnea, morbid obesity)? @ -[CLL Was patient admitted / discharged? Hospital course, mention meds given and route, prescriptions, significant lab abnormalities, going to OR and other pertinent info. @ -58-year-old male with fever, cough, history of pancytopenia. Patient is anemic with a hemoglobin 6.6 and does receive transfusion. He has leukopenia and neutropenia. Cultures are obtained and antibiotics are initiated. His viral panel is negative. He is admitted to internal medicine with both infectious disease and oncology on consultation. Undiagnosed new problem with uncertain prognosis? @ -[No Drug Therapy requiring intensive monitoring for toxicity (Heparin, Nitro, Insulin, Cardizem)? @ -No Were any procedures done? @ -No Diagnosis/symptom? @ -[pancytopenia, neutropenic fever Acute, or Chronic, or Acute on Chronic? @ -acute Uncomplicated (without systemic symptoms) or Complicated (systemic symptoms)? @ -Default Side effects of treatment? @ -No Exacerbation, Progression, or Severe Exacerbation? @ -No Poses a threat to life or bodily function? How? (Chest pain, [place], [place], pneumonia, PE, COPD, DKA, ARF, appy, cholecystitis, CVA, Diverticulitis, Homicidal, Suicidal, threat to staff... and all critical care pts) @ -[yes, sepsis (Varghese Rubio) - Lab Data Lab Results 04/12/24 04/12/24 04/12/24 Range/Units 14:14 14:14 14:14 WBC 1.5 L (3.8-10.6) k/uL RBC 2.33 L (4.30-5.90) m/uL Hgb 6.6 L* (13.0-17.5) gm/dL Hct 20.1 L (39.0-53.0) % MCV 86.2 (80.0-100.0) fL MCH 28.5 (25.0-35.0) pg MCHC 33.1 (31.0-37.0) g/dL RDW 16.2 H (11.5-15.5) % Plt Count (150-450) k/uL MPV 11.4 Neutrophils % (Manual) 34 % Band Neuts % (Manual) 1 % Lymphocytes % (Manual) 55 % Monocytes % (Manual) 10 % Neutrophils # (Manual) 0.50 L (1.3-7.7) k/uL Lymphocytes # (Manual) 0.83 L (1.0-4.8) k/uL Monocytes # (Manual) 0.15 (0-1.0) k/uL Nucleated RBCs 0 (0-0) /100 WBC Manual Slide Review Performed Polychromasia Present Hypochromasia Slight Poikilocytosis Slight Anisocytosis Slight Tear Drop Cells Present PT (10.0-12.5) sec INR (<1.2) APTT (22.0-30.0) sec Sodium 134 L (137-145) mmol/L Potassium 4.0 (3.5-5.1) mmol/L Chloride 105 (98-107) mmol/L Carbon Dioxide 20 L (22-30) mmol/L Anion Gap 9 mmol/L BUN 33 H (9-20) mg/dL Creatinine 1.85 H (0.66-1.25) mg/dL Est GFR (CKD-EPI)AfAm 45 (>60 ml/min/1.73 sqM) Est GFR (CKD-EPI)NonAf 39 (>60 ml/min/1.73 sqM) Glucose 113 H (74-99) mg/dL Lactic Ac Sepsis Rflx Plasma Lactic Acid Jeb (0.7-2.0) mmol/L Calcium 9.1 (8.4-10.2) mg/dL Magnesium 1.6 (1.6-2.3) mg/dL Total Bilirubin 1.7 H (0.2-1.3) mg/dL AST 93 H (17-59) U/L ALT 54 H (4-49) U/L Alkaline Phosphatase 385 H (38-126) U/L Troponin I (0.000-0.034) ng/mL Total Protein 5.0 L (6.3-8.2) g/dL Albumin 3.0 L (3.5-5.0) g/dL Influenza Type A (PCR) Not Detected (Not Detectd) Influenza Type B (PCR) Not Detected (Not Detectd) RSV (PCR) Not Detected (Not Detectd) SARS-CoV-2 (PCR) Not Detected (Not Detectd) 04/12/24 04/12/24 04/12/24 Range/Units 14:14 14:14 14:28 WBC (3.8-10.6) k/uL RBC (4.30-5.90) m/uL Hgb (13.0-17.5) gm/dL Hct (39.0-53.0) % MCV (80.0-100.0) fL MCH (25.0-35.0) pg MCHC (31.0-37.0) g/dL RDW (11.5-15.5) % Plt Count (150-450) k/uL MPV Neutrophils % (Manual) % Band Neuts % (Manual) % Lymphocytes % (Manual) % Monocytes % (Manual) % Neutrophils # (Manual) (1.3-7.7) k/uL Lymphocytes # (Manual) (1.0-4.8) k/uL Monocytes # (Manual) (0-1.0) k/uL Nucleated RBCs (0-0) /100 WBC Manual Slide Review Polychromasia Hypochromasia Poikilocytosis Anisocytosis Tear Drop Cells PT 13.3 H (10.0-12.5) sec INR 1.3 H (<1.2) APTT 29.3 (22.0-30.0) sec Sodium (137-145) mmol/L Potassium (3.5-5.1) mmol/L Chloride (98-107) mmol/L Carbon Dioxide (22-30) mmol/L Anion Gap mmol/L BUN (9-20) mg/dL Creatinine (0.66-1.25) mg/dL Est GFR (CKD-EPI)AfAm (>60 ml/min/1.73 sqM) Est GFR (CKD-EPI)NonAf (>60 ml/min/1.73 sqM) Glucose (74-99) mg/dL Lactic Ac Sepsis Rflx Plasma Lactic Acid Jeb 2.6 H* (0.7-2.0) mmol/L Calcium (8.4-10.2) mg/dL Magnesium (1.6-2.3) mg/dL Total Bilirubin (0.2-1.3) mg/dL AST (17-59) U/L ALT (4-49) U/L Alkaline Phosphatase (38-126) U/L Troponin I 0.019 (0.000-0.034) ng/mL Total Protein (6.3-8.2) g/dL Albumin (3.5-5.0) g/dL Influenza Type A (PCR) (Not Detectd) Influenza Type B (PCR) (Not Detectd) RSV (PCR) (Not Detectd) SARS-CoV-2 (PCR) (Not Detectd) 04/12/24 Range/Units 14:57 WBC (3.8-10.6) k/uL RBC (4.30-5.90) m/uL Hgb (13.0-17.5) gm/dL Hct (39.0-53.0) % MCV (80.0-100.0) fL MCH (25.0-35.0) pg MCHC (31.0-37.0) g/dL RDW (11.5-15.5) % Plt Count (150-450) k/uL MPV Neutrophils % (Manual) % Band Neuts % (Manual) % Lymphocytes % (Manual) % Monocytes % (Manual) % Neutrophils # (Manual) (1.3-7.7) k/uL Lymphocytes # (Manual) (1.0-4.8) k/uL Monocytes # (Manual) (0-1.0) k/uL Nucleated RBCs (0-0) /100 WBC Manual Slide Review Polychromasia Hypochromasia Poikilocytosis Anisocytosis Tear Drop Cells PT (10.0-12.5) sec INR (<1.2) APTT (22.0-30.0) sec Sodium (137-145) mmol/L Potassium (3.5-5.1) mmol/L Chloride (98-107) mmol/L Carbon Dioxide (22-30) mmol/L Anion Gap mmol/L BUN (9-20) mg/dL Creatinine (0.66-1.25) mg/dL Est GFR (CKD-EPI)AfAm (>60 ml/min/1.73 sqM) Est GFR (CKD-EPI)NonAf (>60 ml/min/1.73 sqM) Glucose (74-99) mg/dL Lactic Ac Sepsis Rflx Y Plasma Lactic Acid Jeb (0.7-2.0) mmol/L Calcium (8.4-10.2) mg/dL Magnesium (1.6-2.3) mg/dL Total Bilirubin (0.2-1.3) mg/dL AST (17-59) U/L ALT (4-49) U/L Alkaline Phosphatase (38-126) U/L Troponin I (0.000-0.034) ng/mL Total Protein (6.3-8.2) g/dL Albumin (3.5-5.0) g/dL Influenza Type A (PCR) (Not Detectd) Influenza Type B (PCR) (Not Detectd) RSV (PCR) (Not Detectd) SARS-CoV-2 (PCR) (Not Detectd) Critical Care Time Critical Care Time: Yes Total Critical Care Time: 35 <Varghese Rubio - Last Filed: 04/12/24 17:30> Disposition <Ewa Casas - Last Filed: 04/12/24 13:39> Is patient prescribed a controlled substance at d/c from ED?: No Time of Disposition: 17:19 <Varghese Rubio - Last Filed: 04/12/24 17:30> Clinical Impression: Pancytopenia, Neutropenic fever Disposition: ADMITTED IP TO THIS HOSP Condition: Stable Referrals: Leonor Kumar DO [Primary Care Provider] - 1-2 days
[2024-04-12 14:44] LABS: Anisocytosis Slight; HCT 20.1 % (39.0-53.0); Hypochromasia Slight; MCH 28.5 pg (25.0-35.0); MCHC 33.1 g/dL (31.0-37.0); MCV 86.2 fL (80.0-100.0); Mean Platelet Volume 11.4; Poikilocytosis Slight; RBC 2.33 m/uL (4.30-5.90); RDW 16.2 % (11.5-15.5); WBC 1.5 k/uL (3.8-10.6)
[2024-04-12 14:47] LABS: HGB 6.6 gm/dL (13.0-17.5)
[2024-04-12 14:51] LABS: INR 1.3 (<1.2); Partial Thromboplastin Time 29.3 sec (22.0-30.0); Prothrombin Time 13.3 sec (10.0-12.5)
[2024-04-12 14:55] LABS: ALT 54 U/L (4-49); AST 93 U/L (17-59); African American GFR (CKD) 45 (>60 ml/min/1.73 sqM); Alkaline Phosphatase 385 U/L (38-126); Anion Gap 9 mmol/L; Blood Urea Nitrogen 33 mg/dL (9-20); Calcium 9.1 mg/dL (8.4-10.2); Carbon Dioxide 20 mmol/L (22-30); Chloride 105 mmol/L (98-107); Glucose 113 mg/dL (74-99); Magnesium 1.6 mg/dL (1.6-2.3); Non-African American GFR(CKD) 39 (>60 ml/min/1.73 sqM); Sodium 134 mmol/L (137-145); Total Bilirubin 1.7 mg/dL (0.2-1.3)
[2024-04-12 15:15] LABS: Band Neutrophils % 1 %; Lymphocytes # (M) 0.83 k/uL (1.0-4.8); Monocytes # (M) 0.15 k/uL (0-1.0); Neutrophils % (M) 34 %; Nucleated Red Blood Cells 0 /100 WBC (0-0); Total Cells Counted 100
[2024-04-12 15:16] LABS: Polychromasia Present; Tear Drop Cells Present
[2024-04-12] MEDS: PANTOPRAZOLE 40 MG/10 ML VIAL IVP STA (16:00)
--- NOTE | 2024-04-12 16:31 | US ---
EXAMINATION TYPE: US gallbladder DATE OF EXAM: 04/12/2024 COMPARISON: NONE CLINICAL INDICATION: Male, 58 years old with history of RUQ ab pain; Patient denies any signs, sympto ms, or relevant history TECHNIQUE: Multiple sonographic images of the right upper quadrant are obtained. FINDINGS: EXAM MEASUREMENTS: Liver Length: 22.0 cm Gallbladder Wall: 0.2 cm CBD: 0.2 cm Right Kidney: 13.4 x 5.5 x 5.6 cm Pancreas: wnl Liver: Measures large bowel with normal homogeneous appearance. Gallbladder: Filled with stones. No ramon hydropic change or wall thickening. Evidence for sonographic Bauman's sign: No CBD: wnl Right Kidney: wnl IMPRESSION: 1. The liver measures large at 22.0 cm but otherwise shows a normal homogeneous appearance. 2. The gallbladder is filled with stones. However, there is no hydropic change, wall thickening or so nographic Bauman sign to indicate acute cholecystitis. If symptoms persist and further imaging assess ment of the gallbladder is desired, HIDA scan can be considered. 3. No biliary ductal dilatation. [facility], , 04/12/2024 4:29 PM
--- NOTE | 2024-04-12 16:37 | XR ---
EXAMINATION TYPE: XR chest 2V DATE OF EXAM: 04/12/2024 COMPARISON: None INDICATION: Cough short of breath TECHNIQUE: Single frontal view of the chest is obtained. FINDINGS: The heart size is normal. The pulmonary vasculature is normal. No suspicious consolidations. IMPRESSION: 1. No acute pulmonary process. [facility], Workstation: 3, 04/12/2024 4:34 PM
[2024-04-12] MEDS ORDERED: NALOXONE 0.4 MG/ML 1 ML VIAL IV PRN (17:15)
[2024-04-12] MEDS ORDERED: ONDANSETRON 4 MG/2 ML VIAL IVP PRN (17:15)
[2024-04-12] MEDS: CEFEPIME 2 GM in SODIUM CHLORIDE 0.9% 100 ML IVPB SCH (17:28)
[2024-04-12] MEDS: SODIUM CHLORIDE 0.9% 1,000 ML IV SCH (17:29)
--- NOTE | 2024-04-12 17:52 | P.HPIM ---
History of Present Illness H&P Date: 04/12/24 Patient is a 58-year-old male with history of CLL presenting with persistent fever. He claims that he recently had right axillary biopsy for lymphadenopathy and since then he has not been feeling well. He has been having intermittent fevers mostly at night but is slowly getting worse. He is also having new cough, nonproductive, worsening shortness of breath at rest and with exertion, denies any chest pain, some right upper quadrant pain, occasional nausea, no other urinary or bowel complaints. He denies any new rashes or lower extremity swelling, travel history or other sick contacts. He claims that he was previously on chemotherapy for CLL and has not been on any chemotherapy for a long time. He was seen by oncology 2 days ago for his persistent fever, and was prescribed antivirals and antibiotics, but continued to have fevers prompting him to come to the hospital. He denies any smoking, alcohol use or illicit drug use. In the ED, temperature was 99.5, pulse 108, respiratory rate 18, blood pressure 99/54, saturating at 98% on room air. Laboratory workup showed WBC of 1.5, absolute neutrophil count of 500, 1% band neutrophils, hemoglobin 6.6, platelet less than 30, sodium 134, creatinine 1.85, lactate 2.6, total bili 1.6, AST 93, ALT 54, ALP 285, troponin negative, respiratory viral panel negative. EKG showed sinus rhythm, incomplete right bundle. Chest x-ray did not show any opacities. Gallbladder ultrasound showed hepatomegaly, cholelithiasis without a ny evidence of cholecystitis, no biliary ductal dilation. Patient started on IV cefepime in the ED, cultures pending. Admitted for febrile neutropenia, unclear source of infection. Oncology consulted. Pertinent positives and negatives as discussed in HPI, a complete review of systems was performed and all other systems are negative. Patient seen and examined at bedside. Vital signs reviewed General: nontoxic, no distress, appears at stated age Derm: warm, dry, right axillary incision site is clean, dry, no surrounding erythema or induration Head: atraumatic, normocephalic, symmetric Eyes: EOMI, no lid lag, anicteric sclera, pupils equal round reactive to light ENT: Nose and ears atraumatic Neck: No thyromegaly, supple Mouth: no lip lesion, mucus membranes moist Cardiovascular: S1S2 reg, no murmur, no edema Lungs: clear to auscultation bilateral, no rhonchi, no rales, no wheeze, no accessory muscle use Abdominal: soft, tender to palpation in right and left upper quadrant, no gu arding, no appreciable organomegaly Ext: no gross muscle atrophy, muscle strength muscle strength 5 out of 5 in all 4 extremities, no contractures Neuro: CN II-XII grossly intact Psych: Alert, oriented, appropriate affect Assessment/Plan: Febrile neutropenia History of CLL Pancytopenia Elevated INR Acute kidney injury, likely prerenal Non-anion gap metabolic acidosis Lactic acidosis Cholelithiasis Transaminitis and hyperbilirubinemia -Continue IV fluids currently running at 75 cc an hour normal saline -Repeat lactate -Blood cultures pending -Continue IV cefepime 2 g every 8 hours -HIDA scan ordered -Pending 1 unit of PRBC transfusion -No active bleeding, continue to monitor CBC -Renal ultrasound ordered -Monitor I's and O's -Oncology and ID consulted by ED Chronic: Gout GERD BPH The patient is admitted with an anticipated greater than 2 midnight stay as inpatient status for evaluation of febrile neutropenia. Surrogate decision-maker: Spouse CODE STATUS: Full code DVT prophylaxis: Not indicated Anticipated discharge date: Pending clinical course Anticipated discharge place: Pending clinical course A total of 55 minutes was spent on the care of this complex patient more than 50% of the time was spent in counseling and care coordination. Past Medical History Past Medical History: Cancer Additional Past Medical History / Comment(s): leukemia - last chemo 05/2018, blood counts abnormal. enlarged lymph node. CLL (tx starts Tuesday 04/17) History of Any Multi-Drug Resistant Organisms: None Reported Past Surgical History: Hernia Repair, Tonsillectomy Additional Past Surgical History / Comment(s): scar tissue removed from chin, hemorrhoids. Left inguinal hernia repair Past Anesthesia/Blood Transfusion Reactions: Postoperative Nausea & Vomiting (PONV) Additional Past Anesthesia/Blood Transfusion Reaction / Comment(s): slow to wake up post anesthesia, no previous blood transfusion Past Psychological History: No Psychological Hx Reported Smoking Status: Former smoker - Past Family History Sister(s) Family Medical History: Cancer Additional Family Medical History / Comment(s): cervical Medications and Allergies Home Medications Medication Instructions Recorded Confirmed Type Tamsulosin HCl [Flomax] 0.4 mg PO DAILY 06/26/22 04/12/24 History Venetoclax Pom [Venclexta Pom 1 tab PO DIRECTED 04/05/24 04/12/24 History Starting Pack (10mg/100mg/50mg)] allopurinoL [Allopurinol] 300 mg PO DAILY 04/05/24 04/12/24 History oxyCODONE HCL [OxyIR] 5 mg PO Q6H PRN 3 Days #6 tab 04/06/24 04/12/24 Rx Acyclovir [Zovirax] 400 mg PO BID 04/12/24 04/12/24 History Cholecalciferol [Vitamin D3 (125 125 mcg PO DAILY 04/12/24 04/12/24 History Mcg = 5000 Iu)] Cranberry Fruit Extract [Cranberry] 500 mg PO DAILY 04/12/24 04/12/24 History Multivitamins, Thera [Multivitamin 1 tab PO DAILY 04/12/24 04/12/24 History (formulary)] Omeprazole [PriLOSEC] 40 mg PO DAILY 04/12/24 04/12/24 History Ondansetron Odt [Zofran Odt] 4 - 8 mg PO Q4-6H PRN 04/12/24 04/12/24 History levoFLOXacin 500 mg PO DAILY 04/12/24 04/12/24 History Allergies Allergy/AdvReac Type Severity Reaction Status Date / Time No Known Allergies Allergy Verified 04/12/24 15:10 Physical Exam Vitals: Vital Signs Temp Pulse Resp BP Pulse Ox 04/12/24 13:28 99.5 F 108 H 18 99/54 98 Intake and Output 04/12/24 04/12/24 04/12/24 06:59 14:59 22:59 Other: Weight 99.79 kg Results CBC & Chem 7: 04/12/24 14:14 04/12/24 14:14 Labs: Abnormal Lab Results - Last 24 Hours (Table) 04/12/24 04/12/24 04/12/24 Range/Units 14:14 14:14 14:14 WBC 1.5 L (3.8-10.6) k/uL RBC 2.33 L (4.30-5.90) m/uL Hgb 6.6 L* (13.0-17.5) gm/dL Hct 20.1 L (39.0-53.0) % RDW 16.2 H (11.5-15.5) % Neutrophils # (Manual) 0.50 L (1.3-7.7) k/uL Lymphocytes # (Manual) 0.83 L (1.0-4.8) k/uL PT 13.3 H (10.0-12.5) sec INR 1.3 H (<1.2) Sodium 134 L (137-145) mmol/L Carbon Dioxide 20 L (22-30) mmol/L BUN 33 H (9-20) mg/dL Creatinine 1.85 H (0.66-1.25) mg/dL Glucose 113 H (74-99) mg/dL Plasma Lactic Acid Jeb (0.7-2.0) mmol/L Total Bilirubin 1.7 H (0.2-1.3) mg/dL AST 93 H (17-59) U/L ALT 54 H (4-49) U/L Alkaline Phosphatase 385 H (38-126) U/L Total Protein 5.0 L (6.3-8.2) g/dL Albumin 3.0 L (3.5-5.0) g/dL 04/12/24 Range/Units 14:28 WBC (3.8-10.6) k/uL RBC (4.30-5.90) m/uL Hgb (13.0-17.5) gm/dL Hct (39.0-53.0) % RDW (11.5-15.5) % Neutrophils # (Manual) (1.3-7.7) k/uL Lymphocytes # (Manual) (1.0-4.8) k/uL PT (10.0-12.5) sec INR (<1.2) Sodium (137-145) mmol/L Carbon Dioxide (22-30) mmol/L BUN (9-20) mg/dL Creatinine (0.66-1.25) mg/dL Glucose (74-99) mg/dL Plasma Lactic Acid Jeb 2.6 H* (0.7-2.0) mmol/L Total Bilirubin (0.2-1.3) mg/dL AST (17-59) U/L ALT (4-49) U/L Alkaline Phosphatase (38-126) U/L Total Protein (6.3-8.2) g/dL Albumin (3.5-5.0) g/dL
[2024-04-12 18:08] LABS: Reticulocyte % 2.3 % (0.5-2.0)
[2024-04-12] MEDS: ACETAMINOPHEN TAB 325 MG TAB PO PRN (18:42)
--- NOTE | 2024-04-12 18:44 | US ---
EXAMINATION TYPE: US kidneys/renal and bladder DATE OF EXAM: 04/12/2024 COMPARISON: CT 01/23/2022, PET/CT 03/23/2024 CLINICAL INDICATION: Male, 58 years old with history of paige; PAIGE. Patient hx of leukemia. EXAM MEASUREMENTS: Right Kidney: 13.2 x 5.9 x 6.3 cm Left Kidney: 11.5 x 6.5 x 5.1 cm Right Kidney: No hydro or masses seen as best visualized Left Kidney: No hydro or masses seen as best visualized Bladder: anechoic, wnl Bilateral Jets seen: Left only Incidental findings include: 1. Splenomegaly measuring up to 20.8cm 2. A 4.0 x 3.5 x 3.0cm hypoechoic area seen to the right of the bladder with color doppler flow withi n a viscus may be a lymph node identified on PET/CT 3. A 5.1 x 3.8 x 4.9cm anechoic area seen posterior to the bladder 4. Prominent prostate IMPRESSION: 1. Splenomegaly. 2. Pelvic masses likely related to lymphadenopathy. [facility], , 04/12/2024 6:42 PM
[2024-04-13] MEDS: CEFEPIME 2 GM in SODIUM CHLORIDE 0.9% 100 ML IVPB SCH (04:27)
[2024-04-13 06:21] LABS: Appearance,Urine Cloudy (Clear); Bacteria,Urine Rare /hpf; Bilirubin,Urine Negative (Negative); Blood,Urine Trace (Negative); Budding Yeast,Urine Occasional /hpf; Color,Urine Yellow; Glucose,Urine (UA) Negative (Negative); Hyaline Casts,Urine 1 /lpf (0-2); Ketones,Urine Negative (Negative); Leukocyte Esterase,Urine Negative (Negative); Mucus,Urine Rare /hpf; Nitrite,Urine Negative (Negative); PH, Urine 5.5 (5.0-8.0); Protein,Urine 1+ (Negative); RBC,Urine 1 /hpf (0-5); Specific Gravity,Urine 1.021 (1.001-1.035); Squamous Epithelial Cell,Urine <1 /hpf (0-4); WBC,Urine 2 /hpf (0-5)
[2024-04-13] MEDS: PANTOPRAZOLE 40 MG TABLET PO SCH (06:27)
[2024-04-13 07:13] LABS: Anisocytosis Slight; HCT 20.1 % (39.0-53.0); Hypochromasia Moderate; MCH 28.9 pg (25.0-35.0); MCHC 32.4 g/dL (31.0-37.0); MCV 89.2 fL (80.0-100.0); Mean Platelet Volume 12.3; Poikilocytosis Slight; RBC 2.26 m/uL (4.30-5.90); RDW 16.3 % (11.5-15.5); WBC 1.5 k/uL (3.8-10.6)
[2024-04-13 07:23] LABS: ALT 64 U/L (4-49); AST 67 U/L (17-59); African American GFR (CKD) 43 (>60 ml/min/1.73 sqM); Albumin 2.6 g/dL (3.5-5.0); Alkaline Phosphatase 385 U/L (38-126); Anion Gap 8 mmol/L; Blood Urea Nitrogen 30 mg/dL (9-20); Calcium 8.3 mg/dL (8.4-10.2); Carbon Dioxide 22 mmol/L (22-30); Chloride 106 mmol/L (98-107); Glucose 94 mg/dL (74-99); Non-African American GFR(CKD) 37 (>60 ml/min/1.73 sqM); Potassium 3.7 mmol/L (3.5-5.1); Sodium 136 mmol/L (137-145); Total Bilirubin 2.3 mg/dL (0.2-1.3); Total Protein 4.8 g/dL (6.3-8.2)
[2024-04-13 07:43] LABS: HGB 6.5 gm/dL (13.0-17.5)
--- NOTE | 2024-04-13 09:30 | NM ---
EXAMINATION TYPE: NM hepatobiliary w EF DATE OF EXAM: 04/13/2024 9:23 AM COMPARISON: 01/23/2022 CLINICAL INDICATION:Male, 58 years old with history of concern for cholecystitis; TECHNIQUE: The patient was given 5.2 mCi of Technetium 99m-Mebrofenin as a radiotracer and multiple scintigraphic images were obtained of the abdomen. Gallbladder function was also assessed after the a dministration of ensure drink and additional scintigraphic images were obtained of the abdomen. A reg ion of interest was drawn over the gallbladder and a timing activity curve was generated. The gallbla dder ejection fraction was calculated. FINDINGS: Normal uptake of radiotracer was identified within the liver with excretion into the hepatic and comm on biliary ducts within 8 min . There was normal progressive washout of the liver over the course of the study. Radiotracer uptake within the gallbladder at 30 minutes as well as small bowel activity wa s identified at 10 minutes. Maximum calculated gallbladder ejection fraction is: 83% at 30 minutes (Normal gallbladder ejection fraction is > 35%) IMPRESSION: 1. Normal hepatobiliary scan. 2. Normal ejection fraction. [facility], , 04/13/2024 9:27 AM
[2024-04-13] MEDS: allopurinoL 300 MG TAB PO SCH (09:42)
[2024-04-13] MEDS: TAMSULOSIN 0.4 MG CAP.ER.24H PO SCH (09:42)
[2024-04-13 10:23] LABS: Band Neutrophils % 1 %; Eosinophils # (M) 0.02 k/uL (0-0.7); Lymphocytes # (M) 0.83 k/uL (1.0-4.8); Monocytes # (M) 0.11 k/uL (0-1.0); Neutrophils % (M) 36 %; Nucleated Red Blood Cells 0 /100 WBC (0-0); Total Cells Counted 100
[2024-04-13 10:27] LABS: Platelet Count 45 k/uL (150-450)
--- NOTE | 2024-04-13 14:25 | P.PN ---
Subjective Progress Note Date: 04/13/24 Patient reports ongoing fevers overnight. He does report some epigastric and right sided abdominal pain. He reports intermittent diarrhea. HIDA scan is reviewed and is normal. Abdominal ultrasound is reviewed and shows splenomegaly with pelvic masses consistent with previously known lymphadenopathy. Gen: In NAD, non-toxic HEENT: normocephalic, atraumatic, hearing acuity is intant, mucous membranes moist CVS: perfusing all extremities well, no pitting edema, Respiratory: symmetric chest expansion, no accessory muscle use, GI: soft, tenderness to palpation in the epigastrium, ND, : no suprapubic tenderness, no CVA tenderness MSK/Derm: no rashes, cyanosis Neuro: CN II-XII intact, no motor weakness, Psych: cooperative, euthymic mood, judgment and insight is intact Hospital course: Patient is a 58-year-old male with history of CLL and who has been persistently neutropenic for several months presented with persistent fever. In the ED, temperature was 99.5, pulse 108, respiratory rate 18, blood pressure 99/54, saturating at 98% on room air. Laboratory workup showed WBC of 1.5, absolute neutrophil count of 500, 1% band neutrophils, hemoglobin 6.6, platelet less than 30, sodium 134, creatinine 1.85, lactate 2.6, total bili 1.6, AST 93, ALT 54, ALP 285, troponin negative, respiratory viral panel negative. EKG showed sinus rhythm, incomplete right bundle. Chest x-ray did not show any opacities. Gallbladder ultrasound showed hepatomegaly, cholelithiasis without any evidence of cholecystitis, no biliary ductal dilation. Patient started on IV cefepime in the ED, cultures pending. Admitted for febrile neutropenia, unclear source of infection. Oncology consulted. Assessment/Plan: Febrile neutropenia History of CLL on chemotherapy Pancytopenia Elevated INR -Blood cultures pending -Continue IV cefepime 2 g every 8 hours -Pending 1 unit of PRBC transfusion -Transfuse for target hemoglobin greater than 7, platelets greater than 20 with fever -No active bleeding, continue to monitor CBC -Oncology and ID consulted -Strong consideration of fungal etiologies in this patient with persistent neutropenia for several months, if no improvement on antibacterials, we will consider further workup with beta D glucan, galactomannan, and initiation of broad-spectrum antifungals in coordination with infectious disease -Consideration of repeat CT abdomen/pelvis for abscess rule out Acute kidney injury, likely prerenal Non-anion gap metabolic acidosis Lactic acidosis Cholelithiasis Transaminitis and hyperbilirubinemia -Renal ultrasound ordered -Monitor I's and O's -Continue IV fluids currently running at 75 cc an hour normal saline Chronic: Gout GERD BPH The patient is admitted with an anticipated greater than 2 midnight stay as inpatient status for evaluation of febrile neutropenia. Surrogate decision-maker: Spouse CODE STATUS: Full code DVT prophylaxis: Not indicated Anticipated discharge date: Pending clinical course Anticipated discharge place: Pending clinical course A total of 55 minutes was spent on the care of this complex patient more than 50% of the time was spent in counseling and care coordination. Objective - Vital Signs Vital signs: Vital Signs Temp 98.2 F 04/13/24 14:12 Pulse 71 04/13/24 14:12 Resp 18 04/13/24 14:12 BP 95/52 04/13/24 14:12 Pulse Ox 94 L 04/13/24 14:12 FiO2 Intake & Output 04/12/24 04/13/24 04/13/24 18:59 06:59 18:59 Intake Total 276 400 Balance 276 400 Weight 99.79 kg 99.5 kg 99.5 kg Intake: Oral 118 Blood Product 276 282 Rc Pheresis 2 As3 Unit 276 [id number] Rc Pheresis 2 As3 Unit 282 [id number] - Labs CBC & Chem 7: 04/13/24 06:18 04/13/24 06:18 Labs: Abnormal Lab Results - Last 24 Hours (Table) 04/12/24 04/12/24 04/12/24 Range/Units 14:14 14:14 14:14 WBC 1.5 L (3.8-10.6) k/uL RBC 2.33 L (4.30-5.90) m/uL Hgb 6.6 L* (13.0-17.5) gm/dL Hct 20.1 L (39.0-53.0) % RDW 16.2 H (11.5-15.5) % Plt Count (150-450) k/uL Neutrophils # (Manual) 0.50 L (1.3-7.7) k/uL Lymphocytes # (Manual) 0.83 L (1.0-4.8) k/uL Retic Count (0.5-2.0) % PT 13.3 H (10.0-12.5) sec INR 1.3 H (<1.2) Sodium 134 L (137-145) mmol/L Carbon Dioxide 20 L (22-30) mmol/L BUN 33 H (9-20) mg/dL Creatinine 1.85 H (0.66-1.25) mg/dL Glucose 113 H (74-99) mg/dL Plasma Lactic Acid Jeb (0.7-2.0) mmol/L Calcium (8.4-10.2) mg/dL Total Bilirubin 1.7 H (0.2-1.3) mg/dL AST 93 H (17-59) U/L ALT 54 H (4-49) U/L Alkaline Phosphatase 385 H (38-126) U/L Lactate Dehydrogenase (120-246) U/L Total Protein 5.0 L (6.3-8.2) g/dL Albumin 3.0 L (3.5-5.0) g/dL Urine Protein (Negative) Urine Blood (Negative) Urine Bacteria (None) /hpf Urine Mucus (None) /hpf Urine Yeast (Budding) (None) /hpf Crossmatch 04/12/24 04/12/24 04/12/24 Range/Units 14:14 14:14 14:28 WBC (3.8-10.6) k/uL RBC (4.30-5.90) m/uL Hgb (13.0-17.5) gm/dL Hct (39.0-53.0) % RDW (11.5-15.5) % Plt Count (150-450) k/uL Neutrophils # (Manual) (1.3-7.7) k/uL Lymphocytes # (Manual) (1.0-4.8) k/uL Retic Count 2.3 H (0.5-2.0) % PT (10.0-12.5) sec INR (<1.2) Sodium (137-145) mmol/L Carbon Dioxide (22-30) mmol/L BUN (9-20) mg/dL Creatinine (0.66-1.25) mg/dL Glucose (74-99) mg/dL Plasma Lactic Acid Jeb 2.6 H* (0.7-2.0) mmol/L Calcium (8.4-10.2) mg/dL Total Bilirubin (0.2-1.3) mg/dL AST (17-59) U/L ALT (4-49) U/L Alkaline Phosphatase (38-126) U/L Lactate Dehydrogenase 689 H (120-246) U/L Total Protein (6.3-8.2) g/dL Albumin (3.5-5.0) g/dL Urine Protein (Negative) Urine Blood (Negative) Urine Bacteria (None) /hpf Urine Mucus (None) /hpf Urine Yeast (Budding) (None) /hpf Crossmatch 04/12/24 04/13/24 04/13/24 Range/Units 17:16 05:52 06:18 WBC 1.5 L (3.8-10.6) k/uL RBC 2.26 L (4.30-5.90) m/uL Hgb 6.5 L* (13.0-17.5) gm/dL Hct 20.1 L (39.0-53.0) % RDW 16.3 H (11.5-15.5) % Plt Count 45 L (150-450) k/uL Neutrophils # (Manual) 0.50 L (1.3-7.7) k/uL Lymphocytes # (Manual) 0.83 L (1.0-4.8) k/uL Retic Count (0.5-2.0) % PT (10.0-12.5) sec INR (<1.2) Sodium (137-145) mmol/L Carbon Dioxide (22-30) mmol/L BUN (9-20) mg/dL Creatinine (0.66-1.25) mg/dL Glucose (74-99) mg/dL Plasma Lactic Acid Jeb (0.7-2.0) mmol/L Calcium (8.4-10.2) mg/dL Total Bilirubin (0.2-1.3) mg/dL AST (17-59) U/L ALT (4-49) U/L Alkaline Phosphatase (38-126) U/L Lactate Dehydrogenase (120-246) U/L Total Protein (6.3-8.2) g/dL Albumin (3.5-5.0) g/dL Urine Protein 1+ H (Negative) Urine Blood Trace H (Negative) Urine Bacteria Rare H (None) /hpf Urine Mucus Rare H (None) /hpf Urine Yeast (Budding) Occasional H (None) /hpf Crossmatch See Detail 04/13/24 Range/Units 06:18 WBC (3.8-10.6) k/uL RBC (4.30-5.90) m/uL Hgb (13.0-17.5) gm/dL Hct (39.0-53.0) % RDW (11.5-15.5) % Plt Count (150-450) k/uL Neutrophils # (Manual) (1.3-7.7) k/uL Lymphocytes # (Manual) (1.0-4.8) k/uL Retic Count (0.5-2.0) % PT (10.0-12.5) sec INR (<1.2) Sodium 136 L (137-145) mmol/L Carbon Dioxide (22-30) mmol/L BUN 30 H (9-20) mg/dL Creatinine 1.91 H (0.66-1.25) mg/dL Glucose (74-99) mg/dL Plasma Lactic Acid Jeb (0.7-2.0) mmol/L Calcium 8.3 L (8.4-10.2) mg/dL Total Bilirubin 2.3 H (0.2-1.3) mg/dL AST 67 H (17-59) U/L ALT 64 H (4-49) U/L Alkaline Phosphatase 385 H (38-126) U/L Lactate Dehydrogenase (120-246) U/L Total Protein 4.8 L (6.3-8.2) g/dL Albumin 2.6 L (3.5-5.0) g/dL Urine Protein (Negative) Urine Blood (Negative) Urine Bacteria (None) /hpf Urine Mucus (None) /hpf Urine Yeast (Budding) (None) /hpf Crossmatch
--- NOTE | 2024-04-13 16:21 | P.CONS ---
History of Present Illness - Reason for Consult Consult date: 04/13/24 pancytopenia Requesting physician: Varghese Rubio - Chief Complaint fever - History of Present Illness The patient is a 58 year old male with a history of CLL. He follows with Dr. Campos. He has stable disease and remained in observation until January 2018, due to progression of symptoms and started FCR regimen on 01/24/2018 and completed 6 cycles on 07/13/2018. On 08/19/2023,repeat PET scan revealed progression of generalized adenopathies,splenomegaly,no high SUV to suggest transformation,highest was 5.1. He started acalabrutinib end of . On 03/23/2024,repeat PET scan showed generalized adenopathies which have progressed in particular right axilla with h ighest SUV uptake of almost 9. Due to PET CT findings and progressing constituional symptoms, patient underwent repeat bone marrow biopsy. Bone marrow revealed CLL progression but not transformation. Currently awaiting to start treatment with gazyva and venetoclax. Patient will then f.u with Dr. Braden at [facility] for possible CAR -T cells or bispecific antibodies. Patient presented to the ER with persisting fever over the last 1 week as well as nonproductive cough, shortness of breath and generalized weakness. At today's visit patient states he does feel somewhat improved since admission. Tmax 103.1. Chest x-ray was negative for acute pulmonary processes. Ultrasound of gallbladder showed liver measuring 22 cm but shows normal homogeneous appearance. Gallbladder is filled with stones however negative for acute cholecystitis. KUB ultrasound shows splenomegaly measuring up to 20.8 cm. With pelvic masses likely related to lymphadenopathy. HIDA scan was normal with a normal ejection fraction. Blood cultures and urine culture pending. Patient has been started on IV antibiotics. CBC on admit showed WBC 1.5, ANC 500. Hemoglobin 6.6, platelets 30,000. Patient received 1 unit PRBCs. Repeat CBC today showing WBC 1.5, hemoglobin 6.5, platelets 45,000. Bilirubin 2.3 with tr ansaminitis noted. Creatinine 1.91, GFR 37. LDH 689, haptoglobin 130, reticulocyte 2.3. Review of Systems 10 point ROS is negative except as stated in the HPI Past Medical History Past Medical History: Cancer Additional Past Medical History / Comment(s): leukemia - last chemo 05/2018, blood counts abnormal. enlarged lymph node. CLL (tx starts Tuesday 04/17) History of Any Multi-Drug Resistant Organisms: None Reported Past Surgical History: Hernia Repair, Tonsillectomy Additional Past Surgical History / Comment(s): scar tissue removed from chin, hemorrhoids. Left inguinal hernia repair Past Anesthesia/Blood Transfusion Reactions: Postoperative Nausea & Vomiting (PONV) Additional Past Anesthesia/Blood Transfusion Reaction / Comm: slow to wake up post anesthesia, no previous blood transfusion Past Psychological History: No Psychological Hx Reported Smoking Status: Former smoker Past Alcohol Use History: Occasional Additional Past Alcohol Use History / Comment(s): quit smoking long ago Past Drug Use History: None Reported - Past Family History Sister(s) Family Medical History: Cancer Additional Family Medical History / Comment(s): cervical Medications and Allergies Home Medications Medication Instructions Recorded Confirmed Type Tamsulosin HCl [Flomax] 0.4 mg PO DAILY 06/26/22 04/12/24 History Venetoclax Pom [Venclexta Pom 1 tab PO DIRECTED 04/05/24 04/12/24 History Starting Pack (10mg/100mg/50mg)] allopurinoL [Allopurinol] 300 mg PO DAILY 04/05/24 04/12/24 History oxyCODONE HCL [OxyIR] 5 mg PO Q6H PRN 3 Days #6 tab 04/06/24 04/12/24 Rx Acyclovir [Zovirax] 400 mg PO BID 04/12/24 04/12/24 History Cholecalciferol [Vitamin D3 (125 125 mcg PO DAILY 04/12/24 04/12/24 History Mcg = 5000 Iu)] Cranberry Fruit Extract [Cranberry] 500 mg PO DAILY 04/12/24 04/12/24 History Multivitamins, Thera [Multivitamin 1 tab PO DAILY 04/12/24 04/12/24 History (formulary)] Omeprazole [PriLOSEC] 40 mg PO DAILY 04/12/24 04/12/24 History Ondansetron Odt [Zofran Odt] 4 - 8 mg PO Q4-6H PRN 04/12/24 04/12/24 History levoFLOXacin 500 mg PO DAILY 04/12/24 04/12/24 History Allergies Allergy/AdvReac Type Severity Reaction Status Date / Time No Known Allergies Allergy Verified 04/12/24 15:10 Physical Exam Vitals: Vital Signs Temp Pulse Pulse Resp BP BP Pulse Ox 04/13/24 11:06 99.4 F 107 H 20 114/56 92 L 04/13/24 07:37 101 F H 94 18 107/43 93 L 04/13/24 04:00 99 F 100 18 94/49 94 L 04/13/24 02:00 105 H 17 04/13/24 00:00 101.9 F H 105 H 17 116/56 93 L 04/12/24 23:56 101.9 F H 105 H 16 116/56 93 L 04/12/24 23:00 100.5 F H 107 H 16 115/63 92 L 04/12/24 22:03 99.5 F 104 H 16 109/52 95 04/12/24 21:43 100.5 F H 106 H 16 108/52 91 L 04/12/24 21:35 99.6 F 103 H 16 95/44 91 L 04/12/24 20:00 100.5 F H 107 H 16 115/63 92 L 04/12/24 18:43 103.1 F H 115 H 16 134/60 93 L 04/12/24 18:00 108 H 23 104/49 95 04/12/24 17:30 105 H 20 103/49 97 04/12/24 17:00 104 H 21 105/53 97 04/12/24 16:30 100 22 110/45 99 04/12/24 16:00 101 H 26 H 108/49 98 04/12/24 15:30 103 H 17 106/50 98 04/12/24 15:00 100 19 111/51 95 04/12/24 14:30 101 H 20 111/54 95 04/12/24 13:28 99.5 F 108 H 18 99/54 98 Intake and Output 04/12/24 04/13/24 04/13/24 22:59 06:59 14:59 Intake Total 0 276 0 Balance 0 276 0 Intake: Blood Product 0 276 0 Unit 0 Rc Pheresis 2 As3 Unit 0 276 [id number] Other: Weight 99.5 kg - Constitutional General appearance: average body habitus, no acute distress - EENT Eyes: anicteric sclerae, EOMI ENT: hearing grossly normal - Neck bilateral axillary LAD, R>L - Respiratory Respiratory: bilateral: CTA - Cardiovascular Rhythm: regular - Gastrointestinal General gastrointestinal: soft, splenomegaly, no tenderness - Integumentary Integumentary: no cyanotic, no jaundiced - Psychiatric Psychiatric: A&O x's 3 Results CBC & Chem 7: 04/13/24 06:18 04/13/24 06:18 Labs: Abnormal Lab Results - Last 24 Hours (Table) 04/12/24 04/12/24 04/12/24 Range/Units 14:14 14:14 14:14 WBC 1.5 L (3.8-10.6) k/uL RBC 2.33 L (4.30-5.90) m/uL Hgb 6.6 L* (13.0-17.5) gm/dL Hct 20.1 L (39.0-53.0) % RDW 16.2 H (11.5-15.5) % Plt Count (150-450) k/uL Neutrophils # (Manual) 0.50 L (1.3-7.7) k/uL Lymphocytes # (Manual) 0.83 L (1.0-4.8) k/uL Retic Count (0.5-2.0) % PT 13.3 H (10.0-12.5) sec INR 1.3 H (<1.2) Sodium 134 L (137-145) mmol/L Carbon Dioxide 20 L (22-30) mmol/L BUN 33 H (9-20) mg/dL Creatinine 1.85 H (0.66-1.25) mg/dL Glucose 113 H (74-99) mg/dL Plasma Lactic Acid Jeb (0.7-2.0) mmol/L Calcium (8.4-10.2) mg/dL Total Bilirubin 1.7 H (0.2-1.3) mg/dL AST 93 H (17-59) U/L ALT 54 H (4-49) U/L Alkaline Phosphatase 385 H (38-126) U/L Lactate Dehydrogenase (120-246) U/L Total Protein 5.0 L (6.3-8.2) g/dL Albumin 3.0 L (3.5-5.0) g/dL Urine Protein (Negative) Urine Blood (Negative) Urine Bacteria (None) /hpf Urine Mucus (None) /hpf Urine Yeast (Budding) (None) /hpf Crossmatch 04/12/24 04/12/24 04/12/24 Range/Units 14:14 14:14 14:28 WBC (3.8-10.6) k/uL RBC (4.30-5.90) m/uL Hgb (13.0-17.5) gm/dL Hct (39.0-53.0) % RDW (11.5-15.5) % Plt Count (150-450) k/uL Neutrophils # (Manual) (1.3-7.7) k/uL Lymphocytes # (Manual) (1.0-4.8) k/uL Retic Count 2.3 H (0.5-2.0) % PT (10.0-12.5) sec INR (<1.2) Sodium (137-145) mmol/L Carbon Dioxide (22-30) mmol/L BUN (9-20) mg/dL Creatinine (0.66-1.25) mg/dL Glucose (74-99) mg/dL Plasma Lactic Acid Jeb 2.6 H* (0.7-2.0) mmol/L Calcium (8.4-10.2) mg/dL Total Bilirubin (0.2-1.3) mg/dL AST (17-59) U/L ALT (4-49) U/L Alkaline Phosphatase (38-126) U/L Lactate Dehydrogenase 689 H (120-246) U/L Total Protein (6.3-8.2) g/dL Albumin (3.5-5.0) g/dL Urine Protein (Negative) Urine Blood (Negative) Urine Bacteria (None) /hpf Urine Mucus (None) /hpf Urine Yeast (Budding) (None) /hpf Crossmatch 04/12/24 04/13/24 04/13/24 Range/Units 17:16 05:52 06:18 WBC 1.5 L (3.8-10.6) k/uL RBC 2.26 L (4.30-5.90) m/uL Hgb 6.5 L* (13.0-17.5) gm/dL Hct 20.1 L (39.0-53.0) % RDW 16.3 H (11.5-15.5) % Plt Count 45 L (150-450) k/uL Neutrophils # (Manual) 0.50 L (1.3-7.7) k/uL Lymphocytes # (Manual) 0.83 L (1.0-4.8) k/uL Retic Count (0.5-2.0) % PT (10.0-12.5) sec INR (<1.2) Sodium (137-145) mmol/L Carbon Dioxide (22-30) mmol/L BUN (9-20) mg/dL Creatinine (0.66-1.25) mg/dL Glucose (74-99) mg/dL Plasma Lactic Acid Jeb (0.7-2.0) mmol/L Calcium (8.4-10.2) mg/dL Total Bilirubin (0.2-1.3) mg/dL AST (17-59) U/L ALT (4-49) U/L Alkaline Phosphatase (38-126) U/L Lactate Dehydrogenase (120-246) U/L Total Protein (6.3-8.2) g/dL Albumin (3.5-5.0) g/dL Urine Protein 1+ H (Negative) Urine Blood Trace H (Negative) Urine Bacteria Rare H (None) /hpf Urine Mucus Rare H (None) /hpf Urine Yeast (Budding) Occasional H (None) /hpf Crossmatch See Detail 04/13/24 Range/Units 06:18 WBC (3.8-10.6) k/uL RBC (4.30-5.90) m/uL Hgb (13.0-17.5) gm/dL Hct (39.0-53.0) % RDW (11.5-15.5) % Plt Count (150-450) k/uL Neutrophils # (Manual) (1.3-7.7) k/uL Lymphocytes # (Manual) (1.0-4.8) k/uL Retic Count (0.5-2.0) % PT (10.0-12.5) sec INR (<1.2) Sodium 136 L (137-145) mmol/L Carbon Dioxide (22-30) mmol/L BUN 30 H (9-20) mg/dL Creatinine 1.91 H (0.66-1.25) mg/dL Glucose (74-99) mg/dL Plasma Lactic Acid Jeb (0.7-2.0) mmol/L Calcium 8.3 L (8.4-10.2) mg/dL Total Bilirubin 2.3 H (0.2-1.3) mg/dL AST 67 H (17-59) U/L ALT 64 H (4-49) U/L Alkaline Phosphatase 385 H (38-126) U/L Lactate Dehydrogenase (120-246) U/L Total Protein 4.8 L (6.3-8.2) g/dL Albumin 2.6 L (3.5-5.0) g/dL Urine Protein (Negative) Urine Blood (Negative) Urine Bacteria (None) /hpf Urine Mucus (None) /hpf Urine Yeast (Budding) (None) /hpf Crossmatch Comments: HIDA reviewed Chest x-ray: report reviewed US - abdomen: report reviewed Assessment and Plan (1) CLL (chronic lymphocytic leukemia) Current Visit: Yes Status: Acute Priority: High Code(s): C91.10 - CHRONIC LYMPHOCYTIC LEUK OF B-CELL TYPE NOT ACHIEVE REMIS SNOMED Code(s): 28988920 (2) Neutropenic fever Current Visit: Yes Status: Acute Priority: High Code(s): D70.9 - NEUTROPENIA, UNSPECIFIED; R50.81 - FEVER PRESENTING WITH CONDITIONS CLASSIFIED ELSEWHERE SNOMED Code(s): 885954831 (3) Pancytopenia Current Visit: Yes Status: Acute Priority: High Code(s): D61.818 - OTHER PANCYTOPENIA SNOMED Code(s): 176182760 Plan: Neutropenic fever: Intermittent fevers x 1 week, with cough, SOB and weakness -Tmax since admit 103.1 -Infectious workup negative thus far -Cefepime started. ID following -Noted fevers could likely be r/t progression of CLL, however agree with IV abx coverage until infectious etiologies are ruled out CLL, pancytopenia: -Oncology history and plan as dictated in HPI -Has been on acalabrutinib since . On 03/23/2024,repeat PET scan showed generalized adenopathies which have progressed in particular right axilla with highest SUV uptake of almost 9. Acalabrutinib has been held for last 1 month -Due to PET CT findings and progressing constitutional symptoms, patient underwent repeat bone marrow biopsy. Bone marrow revealed CLL progression but not transformation. -Currently awaiting to start treatment with gazyva and venetoclax -CBC showing WBC 1.5, ANC 500. Hgb 6.6 s/p 1 unit PRBCs (hgb 6.5 yesterday). Plts 45,000. Additional unit PRBCs ordered -Hemolysis labs ordered. Bilirubin 2.3, retic 2.3, LDH 689, however haptoglobin normal at 130, may be consistent with extravascular hemolysis vs progression of CLL -If infection is rued out and patient has not shown improvement on current regimen, will consider starting pulse dose dex -Immunoglobulins ordered, if IgG low, will give IVIG for immune support -CBC daily. Transfuse for hgb less than 7 and for plts less than 10,000 or if symptomatic. Irradiated blood products attests: I have seen and examined patient, performed H&P, developed impression and plan of care. Discussed with dictator. Agree with documentation, dictated as a scribe
--- NOTE | 2024-04-13 22:17 | P.CONS ---
History of Present Illness - Reason for Consult Consult date: 04/13/24 Neutropenic fever Requesting physician: Varghese Rubio - Chief Complaint Fever x few days - History of Present Illness Patient is a 58-year-old male with a past medical history significant for leukemia last chemo around 2017 apparently recently did have resection of the right axillary lymph node and the patient mention has not been feeling well since that procedure patient has been complaining of intermittent fever mostly at night that has been getting worse with a temperature of 103 F at home patient did have some headache no significant URI symptoms patient denies having any chest pain or shortness of breath he did have a cough mild to moderate intensity but not bring up any sputum patient did have some nausea but no vomiting abdominal pain has been complaining of constipation alternating with diarrhea with loose stool this morning but no blood or mucus in the stool and no urinary symptoms with the symptoms the patient has been brought into the hospital on arrival to the ER the patient did have a temperature of 103.1 F patient did have a temperature of 101 F this morning and afebrile since then patient was tachycardic but not hypotensive and no significant hypoxia no need for supplemental oxygen patient did have white count of 1.5 hemoglobin was 6.6 BUN and creatinine has been mildly elevated liver enzymes are mildly elevated UA has been negative influenza RSV COVID testing has been negative patient did have a chest x-ray no acute pulmonary process and abdominal ultrasound no biliary duct dilatation enlarged liver but normal homogeneous appearance gallbladder is filled with stones but no hydropic changes wall thickening subsequently did have a HIDA scan that was reported normal patient has been treated with cefepime infectious disease was consulted regarding neutropenic fever Review of Systems Positive point and negatives has been mentioned in the HPI, complete review of systems was performed and all other systems are negative Past Medical History Past Medical History: Cancer Additional Past Medical History / Comment(s): leukemia - last chemo 05/2018, blood counts abnormal. enlarged lymph node. CLL (tx starts Tuesday 04/17) History of Any Multi-Drug Resistant Organisms: None Reported Past Surgical History: Hernia Repair, Tonsillectomy Additional Past Surgical History / Comment(s): scar tissue removed from chin, hemorrhoids. Left inguinal hernia repair Past Anesthesia/Blood Transfusion Reactions: Postoperative Nausea & Vomiting (PONV) Additional Past Anesthesia/Blood Transfusion Reaction / Comm: slow to wake up post anesthesia, no previous blood transfusion Past Psychological History: No Psychological Hx Reported Smoking Status: Former smoker Past Alcohol Use History: Occasional Additional Past Alcohol Use History / Comment(s): quit smoking long ago Past Drug Use History: None Reported - Past Family History Sister(s) Family Medical History: Cancer Additional Family Medical History / Comment(s): cervical Medications and Allergies Home Medications Medication Instructions Recorded Confirmed Type Tamsulosin HCl [Flomax] 0.4 mg PO DAILY 06/26/22 04/12/24 History Venetoclax Pom [Venclexta Pom 1 tab PO DIRECTED 04/05/24 04/12/24 History Starting Pack (10mg/100mg/50mg)] allopurinoL [Allopurinol] 300 mg PO DAILY 04/05/24 04/12/24 History oxyCODONE HCL [OxyIR] 5 mg PO Q6H PRN 3 Days #6 tab 04/06/24 04/12/24 Rx Acyclovir [Zovirax] 400 mg PO BID 04/12/24 04/12/24 History Cholecalciferol [Vitamin D3 (125 125 mcg PO DAILY 04/12/24 04/12/24 History Mcg = 5000 Iu)] Cranberry Fruit Extract [Cranberry] 500 mg PO DAILY 04/12/24 04/12/24 History Multivitamins, Thera [Multivitamin 1 tab PO DAILY 04/12/24 04/12/24 History (formulary)] Omeprazole [PriLOSEC] 40 mg PO DAILY 04/12/24 04/12/24 History Ondansetron Odt [Zofran Odt] 4 - 8 mg PO Q4-6H PRN 04/12/24 04/12/24 History levoFLOXacin 500 mg PO DAILY 04/12/24 04/12/24 History Allergies Allergy/AdvReac Type Severity Reaction Status Date / Time No Known Allergies Allergy Verified 04/12/24 15:10 Physical Exam Vitals: Vital Signs Temp Pulse Pulse Resp BP BP Pulse Ox 04/13/24 11:16 98.6 F 103 H 18 112/65 94 L 04/13/24 11:06 99.4 F 107 H 20 114/56 92 L 04/13/24 07:37 101 F H 94 18 107/43 93 L 04/13/24 04:00 99 F 100 18 94/49 94 L 04/13/24 02:00 105 H 17 04/13/24 00:00 101.9 F H 105 H 17 116/56 93 L 04/12/24 23:56 101.9 F H 105 H 16 116/56 93 L 04/12/24 23:00 100.5 F H 107 H 16 115/63 92 L 04/12/24 22:03 99.5 F 104 H 16 109/52 95 04/12/24 21:43 100.5 F H 106 H 16 108/52 91 L 04/12/24 21:35 99.6 F 103 H 16 95/44 91 L 04/12/24 20:00 100.5 F H 107 H 16 115/63 92 L 04/12/24 18:43 103.1 F H 115 H 16 134/60 93 L 04/12/24 18:00 108 H 23 104/49 95 04/12/24 17:30 105 H 20 103/49 97 04/12/24 17:00 104 H 21 105/53 97 04/12/24 16:30 100 22 110/45 99 04/12/24 16:00 101 H 26 H 108/49 98 04/12/24 15:30 103 H 17 106/50 98 04/12/24 15:00 100 19 111/51 95 04/12/24 14:30 101 H 20 111/54 95 04/12/24 13:28 99.5 F 108 H 18 99/54 98 Intake and Output 04/12/24 04/13/24 04/13/24 22:59 06:59 14:59 Intake Total 0 276 0 Balance 0 276 0 Intake: Blood Product 0 276 0 Unit 0 Rc Pheresis 2 As3 Unit 0 276 [id number] Other: Weight 99.5 kg GENERAL DESCRIPTION: Middle-aged male up in the chair, no distress. No tachypnea or accessory muscle of respiration use. HEENT: Shows Pallor , no scleral icterus. Oral mucous membrane is dry. No pharyngeal erythema or thrush NECK: Trachea central, no thyromegaly. LUNGS: Unlabored breathing. Clear to auscultation anteriorly. No wheeze or crackle. HEART: S1, S2, regular rate and rhythm. No loud murmur ABDOMEN: Soft, no tenderness , guarding or rigidity, no organomegaly EXTREMITIES: No edema of feet. SKIN: No rash, no masses palpable. NEUROLOGICAL: The patient is awake, alert, oriented x3, mood and affect normal. Results CBC & Chem 7: 04/14/24 07:01 04/14/24 07:01 Labs: Abnormal Lab Results - Last 24 Hours (Table) 04/12/24 04/12/24 04/12/24 Range/Units 14:14 14:14 14:14 WBC 1.5 L (3.8-10.6) k/uL RBC 2.33 L (4.30-5.90) m/uL Hgb 6.6 L* (13.0-17.5) gm/dL Hct 20.1 L (39.0-53.0) % RDW 16.2 H (11.5-15.5) % Plt Count (150-450) k/uL Neutrophils # (Manual) 0.50 L (1.3-7.7) k/uL Lymphocytes # (Manual) 0.83 L (1.0-4.8) k/uL Retic Count (0.5-2.0) % PT 13.3 H (10.0-12.5) sec INR 1.3 H (<1.2) Sodium 134 L (137-145) mmol/L Carbon Dioxide 20 L (22-30) mmol/L BUN 33 H (9-20) mg/dL Creatinine 1.85 H (0.66-1.25) mg/dL Glucose 113 H (74-99) mg/dL Plasma Lactic Acid Ejb (0.7-2.0) mmol/L Calcium (8.4-10.2) mg/dL Total Bilirubin 1.7 H (0.2-1.3) mg/dL AST 93 H (17-59) U/L ALT 54 H (4-49) U/L Alkaline Phosphatase 385 H (38-126) U/L Lactate Dehydrogenase (120-246) U/L Total Protein 5.0 L (6.3-8.2) g/dL Albumin 3.0 L (3.5-5.0) g/dL Urine Protein (Negative) Urine Blood (Negative) Urine Bacteria (None) /hpf Urine Mucus (None) /hpf Urine Yeast (Budding) (None) /hpf Crossmatch 04/12/24 04/12/24 04/12/24 Range/Units 14:14 14:14 14:28 WBC (3.8-10.6) k/uL RBC (4.30-5.90) m/uL Hgb (13.0-17.5) gm/dL Hct (39.0-53.0) % RDW (11.5-15.5) % Plt Count (150-450) k/uL Neutrophils # (Manual) (1.3-7.7) k/uL Lymphocytes # (Manual) (1.0-4.8) k/uL Retic Count 2.3 H (0.5-2.0) % PT (10.0-12.5) sec INR (<1.2) Sodium (137-145) mmol/L Carbon Dioxide (22-30) mmol/L BUN (9-20) mg/dL Creatinine (0.66-1.25) mg/dL Glucose (74-99) mg/dL Plasma Lactic Acid Jeb 2.6 H* (0.7-2.0) mmol/L Calcium (8.4-10.2) mg/dL Total Bilirubin (0.2-1.3) mg/dL AST (17-59) U/L ALT (4-49) U/L Alkaline Phosphatase (38-126) U/L Lactate Dehydrogenase 689 H (120-246) U/L Total Protein (6.3-8.2) g/dL Albumin (3.5-5.0) g/dL Urine Protein (Negative) Urine Blood (Negative) Urine Bacteria (None) /hpf Urine Mucus (None) /hpf Urine Yeast (Budding) (None) /hpf Crossmatch 04/12/24 04/13/24 04/13/24 Range/Units 17:16 05:52 06:18 WBC 1.5 L (3.8-10.6) k/uL RBC 2.26 L (4.30-5.90) m/uL Hgb 6.5 L* (13.0-17.5) gm/dL Hct 20.1 L (39.0-53.0) % RDW 16.3 H (11.5-15.5) % Plt Count 45 L (150-450) k/uL Neutrophils # (Manual) 0.50 L (1.3-7.7) k/uL Lymphocytes # (Manual) 0.83 L (1.0-4.8) k/uL Retic Count (0.5-2.0) % PT (10.0-12.5) sec INR (<1.2) Sodium (137-145) mmol/L Carbon Dioxide (22-30) mmol/L BUN (9-20) mg/dL Creatinine (0.66-1.25) mg/dL Glucose (74-99) mg/dL Plasma Lactic Acid Jeb (0.7-2.0) mmol/L Calcium (8.4-10.2) mg/dL Total Bilirubin (0.2-1.3) mg/dL AST (17-59) U/L ALT (4-49) U/L Alkaline Phosphatase (38-126) U/L Lactate Dehydrogenase (120-246) U/L Total Protein (6.3-8.2) g/dL Albumin (3.5-5.0) g/dL Urine Protein 1+ H (Negative) Urine Blood Trace H (Negative) Urine Bacteria Rare H (None) /hpf Urine Mucus Rare H (None) /hpf Urine Yeast (Budding) Occasional H (None) /hpf Crossmatch See Detail 04/13/24 Range/Units 06:18 WBC (3.8-10.6) k/uL RBC (4.30-5.90) m/uL Hgb (13.0-17.5) gm/dL Hct (39.0-53.0) % RDW (11.5-15.5) % Plt Count (150-450) k/uL Neutrophils # (Manual) (1.3-7.7) k/uL Lymphocytes # (Manual) (1.0-4.8) k/uL Retic Count (0.5-2.0) % PT (10.0-12.5) sec INR (<1.2) Sodium 136 L (137-145) mmol/L Carbon Dioxide (22-30) mmol/L BUN 30 H (9-20) mg/dL Creatinine 1.91 H (0.66-1.25) mg/dL Glucose (74-99) mg/dL Plasma Lactic Acid Jeb (0.7-2.0) mmol/L Calcium 8.3 L (8.4-10.2) mg/dL Total Bilirubin 2.3 H (0.2-1.3) mg/dL AST 67 H (17-59) U/L ALT 64 H (4-49) U/L Alkaline Phosphatase 385 H (38-126) U/L Lactate Dehydrogenase (120-246) U/L Total Protein 4.8 L (6.3-8.2) g/dL Albumin 2.6 L (3.5-5.0) g/dL Urine Protein (Negative) Urine Blood (Negative) Urine Bacteria (None) /hpf Urine Mucus (None) /hpf Urine Yeast (Budding) (None) /hpf Crossmatch Assessment and Plan (1) Fever Current Visit: Yes Status: Acute Code(s): R50.9 - FEVER, UNSPECIFIED SNOMED Code(s): 065827684 (2) Leukopenia Current Visit: Yes Status: Acute Code(s): D72.819 - DECREASED WHITE BLOOD CELL COUNT, UNSPECIFIED SNOMED Code(s): 86433716 Plan: 1patient with fever and leukopenia in this patient who did have a history of leukemia and recently did have a right axillary lymph node dissection has been complaining of fever since then initial workup today shows evidence of elevated liver enzymes gallstones but no evidence of cholecystitis and HIDA scan was negative UA has been negative chest x-ray with no pneumonia 2-we will cover the patient with cefepime while waiting for the culture to finalize We will follow on clinical condition and cultures to further adjust medication if needed Thank you for this consultation we will follow the patient along with you Dictation was produced using [employer] dictation software. please excuse any grammatical, word or spelling errors. Time with Patient: Greater than 30
[2024-04-14 08:18] LABS: Anisocytosis Slight; HCT 21.4 % (39.0-53.0); Hypochromasia Moderate; MCH 28.9 pg (25.0-35.0); MCHC 32.7 g/dL (31.0-37.0); MCV 88.4 fL (80.0-100.0); Mean Platelet Volume 15.1; Poikilocytosis Slight; RBC 2.42 m/uL (4.30-5.90); RDW 16.5 % (11.5-15.5); WBC 1.6 k/uL (3.8-10.6)
[2024-04-14 08:33] LABS: African American GFR (CKD) 51 (>60 ml/min/1.73 sqM); Anion Gap 5 mmol/L; Blood Urea Nitrogen 31 mg/dL (9-20); Carbon Dioxide 21 mmol/L (22-30); Chloride 107 mmol/L (98-107); Glucose 100 mg/dL (74-99); Magnesium 1.7 mg/dL (1.6-2.3); Non-African American GFR(CKD) 44 (>60 ml/min/1.73 sqM); Potassium 3.8 mmol/L (3.5-5.1); Sodium 133 mmol/L (137-145)
[2024-04-14 09:23] LABS: Immunoglobulin M 88.6 mg/dL (40.0-280.0)
[2024-04-14 09:25] LABS: Band Neutrophils % 1 %; Lymphocytes # (M) 0.86 k/uL (1.0-4.8); Monocytes # (M) 0.18 k/uL (0-1.0); Neutrophils % (M) 34 %; Nucleated Red Blood Cells 0 /100 WBC (0-0); Total Cells Counted 100
--- NOTE | 2024-04-14 12:12 | P.PN ---
Subjective Progress Note Date: 04/14/24 Hospital course: Patient is a 58-year-old male with history of CLL and who has been persistently neutropenic for several months presented with persistent fever. In the ED, temperature was 99.5, pulse 108, respiratory rate 18, blood pressure 99/54, saturating at 98% on room air. Laboratory workup showed WBC of 1.5, absolute neutrophil count of 500, 1% band neutrophils, hemoglobin 6.6, platelet less than 30, sodium 134, creatinine 1.85, lactate 2.6, total bili 1.6, AST 93, ALT 54, ALP 285, troponin negative, respiratory viral panel negative. EKG showed sinus rhythm, incomplete right bundle. Chest x-ray did not show any opacities. Gallbladder ultrasound showed hepatomegaly, cholelithiasis without any evidence of cholecystitis, no biliary ductal dilation. Patient started on IV cefepime in the ED, cultures pending. Admitted for febrile neutropenia, unclear source of infection. Oncology consulted. Subjective: Patient seen and examined at the bedside. Patient complaining of diarrhea since yesterday. It is more watery. All Systems reviewed and pertinent positives and negatives noted in HPI, all other symptoms are negative Objective: Vital signs reviewed. General: non toxic, no distress, appears at stated age, normal weight Derm: no unusual rashes/lesions, warm Head: atraumatic, normocephalic, symmetric Eyes: EOMI, no lid lag, anicteric sclera, pupils equal round reactive to light ENT: Nose and ears atraumatic Neck: No cervical lymphadenopathy, trachea midline, supple Mouth: no lip lesion, mucus membranes moist Cardiovascular: S1S2 reg, no murmur, positive dorsalis pedis pulse bilateral, no edema Lungs: CTA bilateral, no rhonchi, no rales, no accessory muscle use Abdominal: soft, mild tenderness to palpation in epigastric region, no guarding Ext: muscle strength 5 out of 5 in all 4 extremities grossly, no gross muscle atrophy, no contractures, Neuro: CN II-XI grossly intact, no gross focal neuro deficits Psych: Alert, oriented, appropriate affect Data reviewed today: Labs: WBC 1.6, hemoglobin 7.0, hematocrit 21.4, MCV 88.4, sodium 133, potassium 3.8, bicarb 21, BUN 31 creatinine 1.66, glucose 100 IgG 586.0, IgA less than 65, IgM 88.6 Images: No new imaging Assessment and Plan: Patient is a 58-year-old male with history of CLL and who has been persistently neutropenic for several months presented with persistent fever. #Febrile neutropenia #History of CLL on chemotherapy #Pancytopenia #Elevated INR -Blood cultures positive for gram-positive cocci in clusters -Continue IV cefepime 2 g every 12 hrs -Recheck CBC in p.m.; status post 1 unit of PRBC transfusion in a.m. -Transfuse for target hemoglobin greater than 7, platelets greater than 20 with fever -No active bleeding, continue to monitor CBC -Oncology and ID consulted -Strong consideration of fungal etiologies in this patient with persistent neutropenia for several months, if no improvement on antibacterials, we will consider further workup with beta D glucan, galactomannan, and initiation of broad-spectrum antifungals in coordination with infectious disease -Consideration of repeat CT abdomen/pelvis for abscess rule out #Acute kidney injury, likely prerenal #Non-anion gap metabolic acidosis #Lactic acidosis #Cholelithiasis #Transaminitis and hyperbilirubinemia -Renal ultrasound shows splenomegaly and pelvic masses likely related lymphadenopathy -Monitor I's and O's -Continue IV fluids currently running at 75 cc an hour normal saline #Diarrhea C. difficile PCR and EIA ordered to rule out C. difficile infection Chronic: Gout: Continue with allopurinol 300 mg p.o. daily GERD: Continue with Protonix 40 mg p.o. daily BPH: Continue with Flomax 0.4 mg. Daily The patient is admitted with an anticipated greater than 2 midnight stay as inpatient status for evaluation of febrile neutropenia. Surrogate decision-maker: Spouse CODE STATUS: Full code DVT prophylaxis: Not indicated Anticipated discharge date: Pending clinical course Anticipated discharge place: Pending clinical course I saw and evaluated the patient during the gonsales and critical portions of this encounter, and discussed the case in detail with the resident author of this note, I agree with the Assessment and Plan, and my changes, if any, are highlighted in blue. Objective - Vital Signs Vital signs: Vital Signs Temp 98.3 F 04/14/24 11:37 Pulse 98 04/14/24 11:37 Resp 16 04/14/24 11:37 BP 110/63 04/14/24 11:37 Pulse Ox 94 L 04/14/24 11:37 FiO2 Intake & Output 04/13/24 04/14/2424 18:59 06:59 18:59 Intake Total 1157 118 Balance 1157 118 Weight 99.5 kg 99 kg Intake: Intake, IV Titration 475 Amount Cefepime 2 gm In Sodium 100 Chloride 0.9% 100 ml @ 25 mls/hr IVPB Q12H [facility] Rx# :[id number] Sodium Chloride 0.9% 1, 375 000 ml @ 75 mls/hr IV . [id number] [facility] Rx#:[id number] Oral 118 118 Blood Product 564 0 Rc As-1 Unit 0 [id number] Rc Pheresis 2 As3 Unit 282 [id number] Other: Voiding Method Toilet - Labs CBC & Chem 7: 04/14/24 07:01 04/14/24 07:01 Labs: Abnormal Lab Results - Last 24 Hours (Table) 04/12/24 04/13/24 04/14/24 Range/Units 17:16 06:18 07:01 WBC 1.6 L (3.8-10.6) k/uL RBC 2.42 L (4.30-5.90) m/uL Hgb 7.0 L (13.0-17.5) gm/dL Hct 21.4 L (39.0-53.0) % RDW 16.5 H (11.5-15.5) % Neutrophils # (Manual) 0.50 L (1.3-7.7) k/uL Lymphocytes # (Manual) 0.86 L (1.0-4.8) k/uL Sodium (137-145) mmol/L Carbon Dioxide (22-30) mmol/L BUN (9-20) mg/dL Creatinine (0.66-1.25) mg/dL Glucose (74-99) mg/dL Calcium (8.4-10.2) mg/dL IgG 586.0 L (700.0-1600.0) mg/dL IgA <65.0 L (60.0-350.0) mg/dL Crossmatch See Detail 04/14/24 Range/Units 07:01 WBC (3.8-10.6) k/uL RBC (4.30-5.90) m/uL Hgb (13.0-17.5) gm/dL Hct (39.0-53.0) % RDW (11.5-15.5) % Neutrophils # (Manual) (1.3-7.7) k/uL Lymphocytes # (Manual) (1.0-4.8) k/uL Sodium 133 L (137-145) mmol/L Carbon Dioxide 21 L (22-30) mmol/L BUN 31 H (9-20) mg/dL Creatinine 1.66 H (0.66-1.25) mg/dL Glucose 100 H (74-99) mg/dL Calcium 8.0 L (8.4-10.2) mg/dL IgG (700.0-1600.0) mg/dL IgA (60.0-350.0) mg/dL Crossmatch Microbiology - Last 24 Hours (Table) 04/12/24 17:26 Blood Culture Gram Stain - Preliminary Blood Blood Culture - Preliminary Molecular ID
--- NOTE | 2024-04-14 12:44 | P.PN ---
Subjective Progress Note Date: 04/14/24 Principal diagnosis: Reason for follow-up is fever and bacteremia Patient is a 58-year-old male with a past medical history significant for leukemia last chemo around 2018 apparently recently did have resection of the right axillary lymph node now admitted to hospital with a fever did have a positive blood culture with gram-positive cocci. On today's evaluation that is 04/14/2024, the patient overall feels better and has improved with a temperature of 100.1 this morning, the patient is on room air and breathing comfortably, the Pt denies having any chest pain or cough, the patient denies having any abdominal pain no vomiting or any diarrhea denies pain to the right axillary area. The patient white count is 1.6, creatinine is 1.66 blood culture with the gram- positive Objective - Vital Signs Vital signs: Vital Signs Temp 100.1 F H 04/14/24 07:36 Pulse 112 H 04/14/24 07:36 Resp 18 04/14/24 07:36 BP 108/59 04/14/24 07:36 Pulse Ox 91 L 04/14/24 07:36 FiO2 Intake & Output 04/13/24 04/14/24 04/14/24 18:59 06:59 18:59 Intake Total 1157 118 Balance 1157 118 Weight 99.5 kg 99 kg Intake: Intake, IV Titration 475 Amount Cefepime 2 gm In Sodium 100 Chloride 0.9% 100 ml @ 25 mls/hr IVPB Q12H [facility] Rx# :[id number] Sodium Chloride 0.9% 1, 375 000 ml @ 75 mls/hr IV . [id number] [facility] Rx#:[id number] Oral 118 118 Blood Product 564 Rc Pheresis 2 As3 Unit 282 [id number] Other: Voiding Method Toilet - Exam GENERAL DESCRIPTION: Middle-age male up in bed in no distress RESPIRATORY SYSTEM: Unlabored breathing , decreased breath sounds at bases HEART: S1 S2 regular rate and rhythm , ABDOMEN: Soft , no tenderness EXTREMITIES: Right axillary incision is currently healing with no swelling redness or drainage - Labs CBC & Chem 7: 04/14/24 07:01 04/14/24 07:01 Labs: Abnormal Lab Results - Last 24 Hours (Table) 04/12/24 04/13/24 04/14/24 Range/Units 17:16 06:18 07:01 WBC 1.6 L (3.8-10.6) k/uL RBC 2.42 L (4.30-5.90) m/uL Hgb 7.0 L (13.0-17.5) gm/dL Hct 21.4 L (39.0-53.0) % RDW 16.5 H (11.5-15.5) % Neutrophils # (Manual) 0.50 L (1.3-7.7) k/uL Lymphocytes # (Manual) 0.86 L (1.0-4.8) k/uL Sodium (137-145) mmol/L Carbon Dioxide (22-30) mmol/L BUN (9-20) mg/dL Creatinine (0.66-1.25) mg/dL Glucose (74-99) mg/dL Calcium (8.4-10.2) mg/dL IgG 586.0 L (700.0-1600.0) mg/dL IgA <65.0 L (60.0-350.0) mg/dL Crossmatch See Detail 04/14/24 Range/Units 07:01 WBC (3.8-10.6) k/uL RBC (4.30-5.90) m/uL Hgb (13.0-17.5) gm/dL Hct (39.0-53.0) % RDW (11.5-15.5) % Neutrophils # (Manual) (1.3-7.7) k/uL Lymphocytes # (Manual) (1.0-4.8) k/uL Sodium 133 L (137-145) mmol/L Carbon Dioxide 21 L (22-30) mmol/L BUN 31 H (9-20) mg/dL Creatinine 1.66 H (0.66-1.25) mg/dL Glucose 100 H (74-99) mg/dL Calcium 8.0 L (8.4-10.2) mg/dL IgG (700.0-1600.0) mg/dL IgA (60.0-350.0) mg/dL Crossmatch Microbiology - Last 24 Hours (Table) 04/12/24 17:26 Blood Culture Gram Stain - Preliminary Blood Blood Culture - Preliminary Molecular ID Assessment and Plan (1) Fever Current Visit: Yes Status: Acute Code(s): R50.9 - FEVER, UNSPECIFIED SNOMED Code(s): 166612384 (2) Leukopenia Current Visit: Yes Status: Acute Code(s): D72.819 - DECREASED WHITE BLOOD CELL COUNT, UNSPECIFIED SNOMED Code(s): 41508291 (3) Bacteremia Current Visit: Yes Status: Acute Code(s): R78.81 - BACTEREMIA SNOMED Code(s): 8345990 Plan: 1patient with fever and leukopenia in this patient who did have a history of leukemia and recently did have a right axillary lymph node dissection has been complaining of fever since then initial workup today shows evidence of elevated liver enzymes gallstones but no evidence of cholecystitis and HIDA scan was negative UA has been negative chest x-ray with no pneumonia 2-patient did have a positive blood culture with gram-positive cocci await ID sensitivity blood cultures will be repeated continue cefepime and will clinical response and evaluate the patient tomorrow question concern answered Dictation was produced using [employer] software. please excuse any grammatical, word or spelling errors. Time with Patient: Less than 30
--- NOTE | 2024-04-14 14:57 | P.PN ---
Subjective Progress Note Date: 04/14/24 Patient reporting feeling improved today. Temperature 100.1 this morning. Blood cultures positive for gram positive cocci. Repeat BC ordered. Continues on IV abx. Hgb 7.0, WBC 1.6, ANC 500, plt not reported. 1 unit PRBCs ordered Objective - Vital Signs Vital signs: Vital Signs Temp 98.7 F 04/14/24 13:55 Pulse 101 H 04/14/24 13:55 Resp 16 04/14/24 13:55 BP 119/64 04/14/24 13:55 Pulse Ox 93 L 04/14/24 13:55 FiO2 Intake & Output 04/13/24 04/14/24 04/14/24 18:59 06:59 18:59 Intake Total 1157 428 Balance 1157 428 Weight 99.5 kg 99 kg Intake: Intake, IV Titration 475 Amount Cefepime 2 gm In Sodium 100 Chloride 0.9% 100 ml @ 25 mls/hr IVPB Q12H [facility] Rx# :[id number] Sodium Chloride 0.9% 1, 375 000 ml @ 75 mls/hr IV . [id number] [facility] Rx#:[id number] Oral 118 118 Blood Product 564 310 Rc As-1 Unit 310 [id number] Rc Pheresis 2 As3 Unit 282 [id number] Other: Voiding Method Toilet - Constitutional General appearance: Present: average body habitus, no acute distress - EENT Eyes: Present: anicteric sclerae, EOMI ENT: Present: hearing grossly normal - Respiratory Details: breathing is even and unlabored - Cardiovascular Details: skin warm and dry - Integumentary Integumentary: Present: pale. Absent: cyanotic - Musculoskeletal Musculoskeletal: Present: strength equal bilaterally - Psychiatric Psychiatric: Present: A&O x's 3 - Labs CBC & Chem 7: 04/14/24 07:01 04/14/24 07:01 Labs: Abnormal Lab Results - Last 24 Hours (Table) 04/12/24 04/13/24 04/14/24 Range/Units 17:16 06:18 07:01 WBC 1.6 L (3.8-10.6) k/uL RBC 2.42 L (4.30-5.90) m/uL Hgb 7.0 L (13.0-17.5) gm/dL Hct 21.4 L (39.0-53.0) % RDW 16.5 H (11.5-15.5) % Neutrophils # (Manual) 0.50 L (1.3-7.7) k/uL Lymphocytes # (Manual) 0.86 L (1.0-4.8) k/uL Sodium (137-145) mmol/L Carbon Dioxide (22-30) mmol/L BUN (9-20) mg/dL Creatinine (0.66-1.25) mg/dL Glucose (74-99) mg/dL Calcium (8.4-10.2) mg/dL IgG 586.0 L (700.0-1600.0) mg/dL IgA <65.0 L (60.0-350.0) mg/dL Crossmatch See Detail 04/14/24 Range/Units 07:01 WBC (3.8-10.6) k/uL RBC (4.30-5.90) m/uL Hgb (13.0-17.5) gm/dL Hct (39.0-53.0) % RDW (11.5-15.5) % Neutrophils # (Manual) (1.3-7.7) k/uL Lymphocytes # (Manual) (1.0-4.8) k/uL Sodium 133 L (137-145) mmol/L Carbon Dioxide 21 L (22-30) mmol/L BUN 31 H (9-20) mg/dL Creatinine 1.66 H (0.66-1.25) mg/dL Glucose 100 H (74-99) mg/dL Calcium 8.0 L (8.4-10.2) mg/dL IgG (700.0-1600.0) mg/dL IgA (60.0-350.0) mg/dL Crossmatch Microbiology - Last 24 Hours (Table) 04/12/24 17:26 Blood Culture Gram Stain - Preliminary Blood Blood Culture - Preliminary Molecular ID Assessment and Plan (1) CLL (chronic lymphocytic leukemia) Current Visit: Yes Status: Acute Priority: High Code(s): C91.10 - CHRONIC LYMPHOCYTIC LEUK OF B-CELL TYPE NOT ACHIEVE REMIS SNOMED Code(s): 37496523 (2) Neutropenic fever Current Visit: Yes Status: Acute Priority: High Code(s): D70.9 - NEUTROPENIA, UNSPECIFIED; R50.81 - FEVER PRESENTING WITH CONDITIONS CLASSIFIED ELSEWHERE SNOMED Code(s): 186761317 (3) Pancytopenia Current Visit: Yes Status: Acute Priority: High Code(s): D61.818 - OTHER PANCYTOPENIA SNOMED Code(s): 393160187 Plan: Neutropenic fever: Intermittent fevers x 1 week, with cough, SOB and weakness -Tmax since admit 103.1. Fever improving -Prelimary blood culture positive for gram positive cocci. Repeat cultures ordered -Continues Cefepime. ID following -Noted fevers could likely be r/t progression of CLL, however agree with IV abx coverage until infectious etiologies are ruled out CLL, pancytopenia: -Oncology history and plan as dictated in HPI -Has been on acalabrutinib since . On 03/23/2024,repeat PET scan showed generalized adenopathies which have progressed in particular right axilla with highest SUV uptake of almost 9. Acalabrutinib has been held for last 1 month -Due to PET CT findings and progressing constitutional symptoms, patient underwent repeat bone marrow biopsy. Bone marrow revealed CLL progression but not transformation. -Currently awaiting to start treatment with gazyva and venetoclax -S/p 2 units PRBCs. WBC 1.6, ANC 500. Hgb 7.0. Plt not reported. Additional unit PRBCs ordered -Hemolysis labs ordered. Bilirubin 2.3, retic 2.3, LDH 689, however haptoglobin normal at 130, may be consistent with extravascular hemolysis vs progression of CLL -If infection is rued out and patient has not shown improvement on current regimen, will consider starting pulse dose dex -Immunoglobulins ordered. IgG 586. Will hold IVIG at this time. If fevers persist over next 24hrs, will give IVIG -CBC daily. Transfuse for hgb less than 7 and for plts less than 10,000 or if symptomatic. Irradiated blood products
--- NOTE | 2024-04-14 16:21 | CDI ---
Documentation Clarification Form Date: 04/14/2024 04:07:26 PM From: Kellee Cm RN CCDS Phone: [phone] Admit Date: 04/12/2024 05:18:00 PM Patient Name: Francis Novak Visit Number: [id number] Discharge Date: ATTENTION: The Clinical Documentation Specialists (CDI) and [facility] Coding Staff appreciate your assistance in clarifying documentation. Please respond to the clarification below the line at the bottom and electronically sign. The CDI & [facility] Coding staff will review the response and follow-up if needed. Please note: Queries are made part of the Legal Health Record. If you have any questions, please contact the author of this message via ITS. Doctor Robin Moran MD There is documentation of bacteremia in ID note, 04/14. Bacteremia is considered a lab finding. Additional clarification regarding bacteremia is requested. Patient history/risk factors: 58 year old Male presents to the ED with persistent fever. The patient had right axillary biopsy for lymphadenopathy and since not feeling well. Medical HX: Previously on chemotherapy for CLL and has not been on chemotherapy for a long time. BPH, GERD and Gout. 04/12 , HP Clinical Indicators: VSS, 04/12: B/P 99/54; HR 108; Temp 99.5; RR 18; Spo2 98% ra WBC: 04/12 1.5 Neutrophils # 0.50 Blood Culture:04/14 Staphylococcus haemolyticus Molecular ID ID Note, 04/14: Patient did have a positive blood culture, with gram positive cocci await ID sensitivity blood cultures will be repeated continue cefepime. Treatment: 04/12 Cefepime IVPB Q8H changed 04/13 to Q12H; ID consult Please provide additional clarification regarding the etiology/cause and/or clinical significance of the bacteremia: [ ] Bacteremia is related to sepsis [ ] Bacteremia is due to infectious process, please specify: [x] Bacteremia is not clinically significant, this is a contaminant as written in my progress note [ ] Other, please specify [ ] Unable to determine (Template Last Revised: September 2020) MTDD
[2024-04-15 07:07] LABS: Anisocytosis Slight; HCT 22.5 % (39.0-53.0); HGB 7.4 gm/dL (13.0-17.5); Hypochromasia Moderate; MCH 28.9 pg (25.0-35.0); MCHC 32.7 g/dL (31.0-37.0); MCV 88.4 fL (80.0-100.0); Mean Platelet Volume 13.4; Poikilocytosis Slight; RBC 2.54 m/uL (4.30-5.90); RDW 16.5 % (11.5-15.5); WBC 1.6 k/uL (3.8-10.6)
[2024-04-15 07:16] LABS: African American GFR (CKD) 59 (>60 ml/min/1.73 sqM); Anion Gap 8 mmol/L; Blood Urea Nitrogen 30 mg/dL (9-20); Carbon Dioxide 18 mmol/L (22-30); Chloride 107 mmol/L (98-107); Glucose 100 mg/dL (74-99); Magnesium 1.8 mg/dL (1.6-2.3); Non-African American GFR(CKD) 51 (>60 ml/min/1.73 sqM); Potassium 3.5 mmol/L (3.5-5.1); Sodium 133 mmol/L (137-145)
[2024-04-15 08:08] LABS: Neutrophils % (M) 44 %; Nucleated Red Blood Cells 0 /100 WBC (0-0); Total Cells Counted 100
[2024-04-15] MEDS: IMMUNE GLOBULIN (GAMMAGARD) 30 GM in EMPTY BAG 1 BAG IV ONE (13:12)
[2024-04-15] MEDS ORDERED: IOPAMIDOL CONTRAST (ORAL USE) VIAL PO PRN (15:27)
--- NOTE | 2024-04-15 15:29 | P.PN ---
Subjective Progress Note Date: 04/15/24 Principal diagnosis: Reason for follow-up is fever and bacteremia Patient is a 58-year-old male with a past medical history significant for leukemia last chemo around 2018 apparently recently did have resection of the right axillary lymph node now admitted to hospital with a fever did have a positive blood culture with gram-positive cocci. On today's evaluation that is 04/15/2024, Patient did have a fever of 103.2 last evening and 100.2 this morning however the patient mention feeling slightly better compared to yesterday he denies having any chest pain or shortness of he did have a cough not bring up any sputum no abdominal distention but no significant pain no vomiting or diarrhea. Patient white count is 1.6 creatinine is 1.47 blood culture with Staphylococcus hemolyticus Objective - Vital Signs Vital signs: Vital Signs Temp 100.2 F H 04/15/24 08:00 Pulse 104 H 04/15/24 08:00 Resp 18 04/15/24 08:00 BP 109/50 04/15/24 08:00 Pulse Ox 95 04/15/24 08:00 FiO2 Intake & Output 04/14/24 04/15/24 04/15/24 18:59 06:59 18:59 Intake Total 428 1198 Balance 428 1198 Weight 98.2 kg Intake: Oral 118 1198 Blood Product 310 Rc As-1 Unit 310 [id number] Other: Voiding Method Toilet Toilet Toilet - Exam GENERAL DESCRIPTION: Middle-age male up in bed in no distress RESPIRATORY SYSTEM: Unlabored breathing , decreased breath sounds at bases HEART: S1 S2 regular rate and rhythm , ABDOMEN: Soft , did have some abdominal distention but no significant tenderness EXTREMITIES: Right axillary incision is currently healing with no swelling redness or drainage - Labs CBC & Chem 7: 04/15/24 06:34 04/15/24 06:34 Labs: Abnormal Lab Results - Last 24 Hours (Table) 04/15/24 04/15/24 Range/Units 06:34 06:34 WBC 1.6 L (3.8-10.6) k/uL RBC 2.54 L (4.30-5.90) m/uL Hgb 7.4 L (13.0-17.5) gm/dL Hct 22.5 L (39.0-53.0) % RDW 16.5 H (11.5-15.5) % Neutrophils # (Manual) 0.70 L (1.3-7.7) k/uL Lymphocytes # (Manual) 0.80 L (1.0-4.8) k/uL Sodium 133 L (137-145) mmol/L Carbon Dioxide 18 L (22-30) mmol/L BUN 30 H (9-20) mg/dL Creatinine 1.47 H (0.66-1.25) mg/dL Glucose 100 H (74-99) mg/dL Calcium 8.0 L (8.4-10.2) mg/dL Microbiology - Last 24 Hours (Table) 04/12/24 17:26 Blood Culture Gram Stain - Preliminary Blood Blood Culture - Preliminary Staphylococcus haemolyticus Molecular ID Assessment and Plan (1) Fever Current Visit: Yes Status: Acute Code(s): R50.9 - FEVER, UNSPECIFIED SNOMED Code(s): 146520667 (2) Leukopenia Current Visit: Yes Status: Acute Code(s): D72.819 - DECREASED WHITE BLOOD CELL COUNT, UNSPECIFIED SNOMED Code(s): 15609152 (3) Bacteremia Current Visit: Yes Status: Acute Code(s): R78.81 - BACTEREMIA SNOMED Code(s): 8200817 Plan: 1patient with fever and leukopenia in this patient who did have a history of leukemia and recently did have a right axillary lymph node dissection has been complaining of fever since then initial workup today shows evidence of elevated liver enzymes gallstones but no evidence of cholecystitis and HIDA scan was negative UA has been negative chest x-ray with no pneumonia 2-patient did have a positive blood culture with Staphylococcus hemolyticus with a question of possible skin contamination blood culture has been repeated. 3with persistent fever abdominal distention we will check a CT of abdominal pelvis with oral contrast only and switch antibiotic to Zosyn discussed with the resident physician Dictation was produced using [employer] dictation software. please excuse any grammatical, word or spelling errors. Time with Patient: Less than 30
[2024-04-15] MEDS: IOPAMIDOL CONTRAST (ORAL USE) VIAL PO PRN (15:48)
[2024-04-15] MEDS ORDERED: CEFEPIME 2 GM in SODIUM CHLORIDE 0.9% 100 ML IVPB SCH (16:00)
--- NOTE | 2024-04-15 16:11 | P.PN ---
Subjective Progress Note Date: 04/15/24 Hospital course: Patient is a 58-year-old male with history of CLL and who has been persistently neutropenic for several months presented with persistent fever. In the ED, temperature was 99.5, pulse 108, respiratory rate 18, blood pressure 99/54, saturating at 98% on room air. Laboratory workup showed WBC of 1.5, absolute neutrophil count of 500, 1% band neutrophils, hemoglobin 6.6, platelet less than 30, sodium 134, creatinine 1.85, lactate 2.6, total bili 1.6, AST 93, ALT 54, ALP 285, troponin negative, respiratory viral panel negative. EKG showed sinus rhythm, incomplete right bundle. Chest x-ray did not show any opacities. Gallbladder ultrasound showed hepatomegaly, cholelithiasis without any evidence of cholecystitis, no biliary ductal dilation. Patient started on IV cefepime in the ED, cultures pending. Admitted for febrile neutropenia, unclear source of infection. Oncology consulted. Subjective: Patient seen and examined at the bedside. Patient complaining of diarrhea since yesterday. It is more watery. All Systems reviewed and pertinent positives and negatives noted in HPI, all other symptoms are negative Objective: Vital signs reviewed. General: non toxic, no distress, appears at stated age, normal weight Derm: no unusual rashes/lesions, warm Head: atraumatic, normocephalic, symmetric Eyes: EOMI, no lid lag, anicteric sclera, pupils equal round reactive to light ENT: Nose and ears atraumatic Neck: No cervical lymphadenopathy, trachea midline, supple Mouth: no lip lesion, mucus membranes moist Cardiovascular: S1S2 reg, no murmur, positive dorsalis pedis pulse bilateral, no edema Lungs: CTA bilateral, no rhonchi, no rales, no accessory muscle use Abdominal: soft, mild tenderness to palpation in epigastric region, no guarding Ext: muscle strength 5 out of 5 in all 4 extremities grossly, no gross muscle atrophy, no contractures, Neuro: CN II-XI grossly intact, no gross focal neuro deficits Psych: Alert, oriented, appropriate affect Data reviewed today: Labs: WBC 1.6, hemoglobin 7.4, sodium 133, bicarb 18, chloride 107, BUN 30, creatinine 1.47, glucose 100, calcium 8, magnesium 1.8 Images: No new imaging Assessment and Plan: Patient is a 58-year-old male with history of CLL and who has been persistently neutropenic for several months presented with persistent fever. #Febrile neutropenia #History of CLL on chemotherapy #Pancytopenia #Elevated INR #Ig G deficiency -Blood cultures positive for gram-positive cocci in clusters, staph hemolyticus, likely contaminant -Cefepime is discontinued; started on Zosyn 3.375 g IVPB every 8 hours per ID -Transfuse for target hemoglobin greater than 7, platelets greater than 20 with fever -No active bleeding, continue to monitor CBC -Oncology and ID consulted - galactomannan, beta D glucan, CrAg ordered to r/o fungal infection etiology Case discussed with ID; CT of the abdomen pelvis with oral contrast is ordered -C diff re-ordered #Acute kidney injury, likely prerenal #Non-anion gap metabolic acidosis #Lactic acidosis #Cholelithiasis #Transaminitis and hyperbilirubinemia -Renal ultrasound shows splenomegaly and pelvic masses likely related lymphadenopathy -Monitor I's and O's -Continue IV fluids currently running at 75 cc an hour normal saline #Diarrhea #IgA deficiency C. difficile PCR and EIA ordered to rule out C. difficile infection Ordered stool culture, stool ova and parasite, lactoferrin, Giardia antigen, -CMV IgG/IgM Chronic: Gout: Continue with allopurinol 300 mg p.o. daily GERD: Continue with Protonix 40 mg p.o. daily BPH: Continue with Flomax 0.4 mg. Daily The patient is admitted with an anticipated greater than 2 midnight stay as inpatient status for evaluation of febrile neutropenia. Surrogate decision-maker: Spouse CODE STATUS: Full code DVT prophylaxis: Contraindicated Anticipated discharge date: Pending clinical course Anticipated discharge place: Pending clinical course I saw and evaluated the patient during the gonsales and critical portions of this e ncounter, and discussed the case in detail with the resident author of this note, I agree with the Assessment and Plan, and my changes, if any, are highlighted in blue. Objective - Vital Signs Vital signs: Vital Signs Temp 100.2 F H 04/15/24 08:00 Pulse 104 H 04/15/24 08:00 Resp 18 04/15/24 08:00 BP 109/50 04/15/24 08:00 Pulse Ox 95 04/15/24 08:00 FiO2 Intake & Output 09/20/24 09/21/24 09/21/24 18:59 06:59 18:59 Intake Total 428 1198 Balance 428 1198 Weight 98.2 kg Intake: Oral 118 1198 Blood Product 310 Rc As-1 Unit 310 [id number] Other: Voiding Method Toilet Toilet Toilet - Labs CBC & Chem 7: 04/15/24 06:34 04/15/24 06:34 Labs: Abnormal Lab Results - Last 24 Hours (Table) 04/15/24 04/15/24 Range/Units 06:34 06:34 WBC 1.6 L (3.8-10.6) k/uL RBC 2.54 L (4.30-5.90) m/uL Hgb 7.4 L (13.0-17.5) gm/dL Hct 22.5 L (39.0-53.0) % RDW 16.5 H (11.5-15.5) % Neutrophils # (Manual) 0.70 L (1.3-7.7) k/uL Lymphocytes # (Manual) 0.80 L (1.0-4.8) k/uL Sodium 133 L (137-145) mmol/L Carbon Dioxide 18 L (22-30) mmol/L BUN 30 H (9-20) mg/dL Creatinine 1.47 H (0.66-1.25) mg/dL Glucose 100 H (74-99) mg/dL Calcium 8.0 L (8.4-10.2) mg/dL Microbiology - Last 24 Hours (Table) 04/12/24 17:26 Blood Culture Gram Stain - Preliminary Blood Blood Culture - Preliminary Staphylococcus haemolyticus Molecular ID
--- NOTE | 2024-04-15 17:44 | CT ---
EXAMINATION TYPE: CT abdomen pelvis wo/w con CT DLP: 2931.2 mGycm, Automated exposure control for dose reduction was used. DATE OF EXAM: 04/15/2024 5:18 PM COMPARISON: CT abdomen pelvis most recent from 03/23/2024 CLINICAL INDICATION: Male, 58 years old with history of colitis, vs abscess; Colitis, vs abscess. TECHNIQUE: Axial CT abdomen pelvis wo/w con;Sagittal and coronal reformats were created on a [employer] workstation. Contrast used:80ml mL of Isovue 300 without and with IV Contrast, (none if empty) Oral contrast used: with Oral Contrast (none if empty) FINDINGS: LOWER CHEST: Partially visualized thoracic lymph nodes measuring up to 24 mm is on the right and 18 m m on the left. Right lower lung pulmonary nodule measuring up to 7 mm not significantly changed from prior. ABDOMEN LIVER: Unremarkable GALLBLADDER AND BILE DUCTS: Unremarkable. PANCREAS: Unremarkable. SPLEEN: Spleen measures up to 24.8 centimeters ADRENAL GLANDS: Unremarkable. KIDNEYS AND URETERS: No evidence of hydronephrosis or renal calculus. The ureters are unremarkable. PELVIS BLADDER: Unremarkable REPRODUCTIVE: Enlarged prostate gland measuring up torr 5.7 cm in transverse dimension. ABDOMEN & PELVIS STOMACH AND BOWEL: No evidence of bowel obstruction. No evidence for organizing fluid collection. No bowel wall thickening definitively visualized within the colon PERITONEUM/RETROPERITONEUM: No evidence of pneumoperitoneum or free fluid. VASCULATURE: No evidence of aortic aneurysm. MUSCULOSKELETAL: No acute osseous abnormalities LYMPH NODES: Abnormal enlarged lymph nodes are seen throughout the exam including the by lateral ingu inal regions up to approximately 27 mm, previously 20 mm. On the left measuring up to 29 mm, previous ly 23 mm. Retroperitoneal lymphadenopathy also remains present., SOFT TISSUE/ABDOMINAL WALL: Inguinal hernias containing edematous tissue and fat on the right greater than left. IMPRESSION No evidence for colitis or abscess. Diffuse lymphadenopathy and splenomegaly which may be mildly increased from prior on 03/23/2024. [facility], , 04/15/2024 5:41 PM
[2024-04-15] MEDS: PIPERACILLIN-TAZOBACTAM 3.375 GM in SODIUM CHLORIDE 0.9% 100 ML IVPB SCH (18:19)
[2024-04-15] MEDS: IMMUNE GLOBULIN (GAMMAGARD) 20 GM in EMPTY BAG 1 BAG IV ONE (18:20)
--- NOTE | 2024-04-16 07:42 | CT ---
EXAMINATION TYPE: CT chest wo con DATE OF EXAM: 04/15/2024 COMPARISON: 01/23/2022, PET/CT 03/23/2024 HISTORY: pulmonary nodules, prior on synapse. CT DLP: 526.1 mGycm, Automated exposure control for dose reduction was used. CONTRAST: Performed injected with 0 mL of Isovue 300. TECHNIQUE: Axial images were obtained at 5 mm thick sections. Reconstructed images are reviewed on [employer] computer in the coronal plane. FINDINGS: Portion of the thyroid visualized is normal. No suspicious lung nodules or focal infiltrates are present. No cavitary lesions are evident. Extensive lymphadenopathy is present enlarged lymph nodes bilateral axilla. Superior mediastinal pre tracheal and aortopulmonic window adenopathy is present. Smaller hilar adenopathy likely present2. Up per abdominal adenopathy may be present. Findings are compatible with patient's reported lymphoma. The ascending aorta diameter at the level of the main pulmonary artery is 4.0 cm. The main pulmonary artery diameter at the bifurcation is 3.9 cm. IMPRESSION: 1. 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 Findings have worsened from the 2021 comparison. [facility], , 04/16/2024 7:40 AM
[2024-04-16 08:33] LABS: African American GFR (CKD) 64 (>60 ml/min/1.73 sqM); Anion Gap 9 mmol/L; Blood Urea Nitrogen 30 mg/dL (9-20); Calcium 7.7 mg/dL (8.4-10.2); Carbon Dioxide 15 mmol/L (22-30); Chloride 106 mmol/L (98-107); Glucose 99 mg/dL (74-99); Non-African American GFR(CKD) 56 (>60 ml/min/1.73 sqM); Potassium 3.8 mmol/L (3.5-5.1); Sodium 130 mmol/L (137-145)
[2024-04-16 09:11] LABS: Anisocytosis Slight; HCT 22.2 % (39.0-53.0); HGB 7.7 gm/dL (13.0-17.5); Hypochromasia Slight; MCH 30.2 pg (25.0-35.0); MCHC 34.9 g/dL (31.0-37.0); MCV 86.8 fL (80.0-100.0); Mean Platelet Volume 17.6; Poikilocytosis Slight; RBC 2.55 m/uL (4.30-5.90); RDW 16.4 % (11.5-15.5); WBC 2.8 k/uL (3.8-10.6)
[2024-04-16 10:19] LABS: Eosinophils # (M) 0.03 k/uL (0-0.7); Lymphocytes # (M) 1.65 k/uL (1.0-4.8); Metamyelocytes # (M) 0.17 k/uL (0); Metamyelocytes % 6 %; Monocytes # (M) 0.22 k/uL (0-1.0); Neutrophils # (M) 0.78 k/uL (1.3-7.7); Neutrophils % (M) 28 %; Nucleated Red Blood Cells 0 /100 WBC (0-0); Total Cells Counted 200
[2024-04-16 10:26] LABS: Ovalocytes Present
--- NOTE | 2024-04-16 11:59 | P.PN ---
Subjective Progress Note Date: 04/16/24 Hospital course: Patient is a 58-year-old male with history of CLL and who has been persistently neutropenic for several months presented with persistent fever. In the ED, temperature was 99.5, pulse 108, respiratory rate 18, blood pressure 99/54, saturating at 98% on room air. Laboratory workup showed WBC of 1.5, absolute neutrophil count of 500, 1% band neutrophils, hemoglobin 6.6, platelet less than 30, sodium 134, creatinine 1.85, lactate 2.6, total bili 1.6, AST 93, ALT 54, ALP 285, troponin negative, respiratory viral panel negative. EKG showed sinus rhythm, incomplete right bundle. Chest x-ray did not show any opacities. Gallbladder ultrasound showed hepatomegaly, cholelithiasis without any evidence of cholecystitis, no biliary ductal dilation. Patient started on IV cefepime in the ED, cultures pending. Admitted for febrile neutropenia, unclear source of infection. Oncology consulted. Subjective: Patient seen and examined at the bedside. Patient complaining of diarrhea since yesterday. It is more watery. All Systems reviewed and pertinent positives and negatives noted in HPI, all other symptoms are negative Objective: Vital signs reviewed. General: non toxic, no distress, appears at stated age, normal weight Derm: no unusual rashes/lesions, warm Head: atraumatic, normocephalic, symmetric Eyes: EOMI, no lid lag, anicteric sclera, pupils equal round reactive to light ENT: Nose and ears atraumatic Neck: No cervical lymphadenopathy, trachea midline, supple Mouth: no lip lesion, mucus membranes moist Cardiovascular: S1S2 reg, no murmur, positive dorsalis pedis pulse bilateral, no edema Lungs: CTA bilateral, no rhonchi, no rales, no accessory muscle use Abdominal: soft, mild tenderness to palpation in epigastric region, no guarding Ext: muscle strength 5 out of 5 in all 4 extremities grossly, no gross muscle atrophy, no contractures, Neuro: CN II-XI grossly intact, no gross focal neuro deficits Psych: Alert, oriented, appropriate affect Data reviewed today: Labs: WBC 1.6, hemoglobin 7.4, sodium 133, bicarb 18, chloride 107, BUN 30, creatinine 1.47, glucose 100, calcium 8, magnesium 1.8 Images: No new imaging Assessment and Plan: Patient is a 58-year-old male with history of CLL and who has been persistently neutropenic for several months presented with persistent fever. #Febrile neutropenia #History of CLL on chemotherapy #Pancytopenia #Elevated INR #Ig G deficiency -Blood cultures positive for gram-positive cocci in clusters, staph hemolyticus, likely contaminant -Cefepime is discontinued; started on Zosyn 3.375 g IVPB every 8 hours per ID -Transfuse for target hemoglobin greater than 7, platelets greater than 20 with fever -No active bleeding, continue to monitor CBC -Oncology and ID consulted - galactomannan, beta D glucan, CrAg ordered to r/o fungal infection etiology Case discussed with ID; CT of the abdomen pelvis with oral contrast is ordered -C diff re-ordered #Acute kidney injury, likely prerenal #Non-anion gap metabolic acidosis #Lactic acidosis #Cholelithiasis #Transaminitis and hyperbilirubinemia -Renal ultrasound shows splenomegaly and pelvic masses likely related lymphadenopathy -Monitor I's and O's -Continue IV fluids currently running at 75 cc an hour normal saline #Diarrhea #IgA deficiency C. difficile PCR and EIA ordered to rule out C. difficile infection = not sent due to formed stool Ordered stool culture, stool ova and parasite, lactoferrin, Giardia antigen, -CMV IgG/IgM = IgG+, IgM- Chronic: Gout: Continue with allopurinol 300 mg p.o. daily GERD: Continue with Protonix 40 mg p.o. daily BPH: Continue with Flomax 0.4 mg. Daily The patient is admitted with an anticipated greater than 2 midnight stay as inpatient status for evaluation of febrile neutropenia. Surrogate decision-maker: Spouse CODE STATUS: Full code DVT prophylaxis: Contraindicated Anticipated discharge date: Pending clinical course Anticipated discharge place: Pending clinical course Objective - Vital Signs Vital signs: Vital Signs Temp 98.5 F 04/16/24 08:00 Pulse 114 H 04/16/24 08:00 Resp 20 04/16/24 08:00 BP 124/57 04/16/24 08:00 Pulse Ox 91 L 04/16/24 08:00 FiO2 Intake & Output 04/15/24 04/16/24 04/16/24 18:59 06:59 18:59 Intake Total 1738 898 Balance 1738 898 Weight 105.6 kg Intake: Oral 1738 898 Other: Voiding Method Toilet Toilet Toilet Urinal Urinal # Bowel Movements 1 - Labs CBC & Chem 7: 04/16/24 07:03 04/16/24 07:03 Labs: Abnormal Lab Results - Last 24 Hours (Table) 04/15/24 04/16/24 04/16/24 Range/Units 06:34 07:03 07:03 WBC 2.8 L (3.8-10.6) k/uL RBC 2.55 L (4.30-5.90) m/uL Hgb 7.7 L (13.0-17.5) gm/dL Hct 22.2 L (39.0-53.0) % RDW 16.4 H (11.5-15.5) % Sodium 130 L (137-145) mmol/L Carbon Dioxide 15 L (22-30) mmol/L BUN 30 H (9-20) mg/dL Creatinine 1.37 H (0.66-1.25) mg/dL Calcium 7.7 L (8.4-10.2) mg/dL CMV IgG Ab Reactive A (Nonreactive) Microbiology - Last 24 Hours (Table) 04/14/24 15:01 Blood Culture - Preliminary Blood
[2024-04-16 14:13] LABS: Platelet Count 66 k/uL (150-450)
--- NOTE | 2024-04-16 16:00 | P.PN ---
Subjective Progress Note Date: 04/16/24 Principal diagnosis: Reason for follow-up is fever and bacteremia Patient is a 58-year-old male with a past medical history significant for leukemia last chemo around 2018 apparently recently did have resection of the right axillary lymph node now admitted to hospital with a fever did have a positive blood culture with gram-positive cocci. On today's evaluation that is 04/16/2024, patient did have improvement in his fever pattern last temperature of 99.6 at 3 AM afebrile this afternoon patient mention feeling slightly better complaining of some shortness of breath on exertion but denies significant cough or sputum production no nausea vomiting abdominal pain or diarrhea. Patient white count is 2.8, creatinine is 1.[address] of the chest abdomen pelvis did not show any acute abnormality Objective - Vital Signs Vital signs: Vital Signs Temp 98.5 F 04/16/24 08:00 Pulse 114 H 04/16/24 08:00 Resp 20 04/16/24 08:00 BP 124/57 04/16/24 08:00 Pulse Ox 91 L 04/16/24 08:00 FiO2 Intake & Output 04/15/24 04/16/24 04/16/24 18:59 06:59 18:59 Intake Total 1738 1438 Balance 1738 1438 Weight 105.6 kg Intake: Oral 1738 1438 Other: Voiding Method Toilet Toilet Toilet Urinal Urinal # Bowel Movements 1 - Exam GENERAL DESCRIPTION: Middle-age male up in bed in no distress RESPIRATORY SYSTEM: Unlabored breathing , decreased breath sounds at bases HEART: S1 S2 regular rate and rhythm , ABDOMEN: Soft , did have some abdominal distention but no significant tenderness EXTREMITIES: Right axillary incision is currently healing with no swelling redness or drainage - Labs CBC & Chem 7: 04/16/24 13:43 04/16/24 07:03 Labs: Abnormal Lab Results - Last 24 Hours (Table) 04/15/24 04/16/24 04/16/24 Range/Units 06:34 07:03 07:03 WBC 2.8 L (3.8-10.6) k/uL RBC 2.55 L (4.30-5.90) m/uL Hgb 7.7 L (13.0-17.5) gm/dL Hct 22.2 L (39.0-53.0) % RDW 16.4 H (11.5-15.5) % Plt Count (150-450) k/uL Sodium 130 L (137-145) mmol/L Carbon Dioxide 15 L (22-30) mmol/L BUN 30 H (9-20) mg/dL Creatinine 1.37 H (0.66-1.25) mg/dL Calcium 7.7 L (8.4-10.2) mg/dL CMV IgG Ab Reactive A (Nonreactive) 04/16/24 Range/Units 13:43 WBC (3.8-10.6) k/uL RBC (4.30-5.90) m/uL Hgb (13.0-17.5) gm/dL Hct (39.0-53.0) % RDW (11.5-15.5) % Plt Count 66 L (150-450) k/uL Sodium (137-145) mmol/L Carbon Dioxide (22-30) mmol/L BUN (9-20) mg/dL Creatinine (0.66-1.25) mg/dL Calcium (8.4-10.2) mg/dL CMV IgG Ab (Nonreactive) Microbiology - Last 24 Hours (Table) 04/12/24 17:26 Blood Culture Gram Stain - Final Blood Blood Culture - Final Staphylococcus haemolyticus Molecular ID 04/14/24 15:01 Blood Culture - Preliminary Blood Assessment and Plan (1) Fever Current Visit: Yes Status: Acute Code(s): R50.9 - FEVER, UNSPECIFIED SNOMED Code(s): 291336410 (2) Leukopenia Current Visit: Yes Status: Acute Code(s): D72.819 - DECREASED WHITE BLOOD CELL COUNT, UNSPECIFIED SNOMED Code(s): 90418472 (3) Bacteremia Current Visit: Yes Status: Acute Code(s): R78.81 - BACTEREMIA SNOMED C ode(s): 4970897 Plan: 1patient with fever and leukopenia in this patient who did have a history of leukemia and recently did have a right axillary lymph node dissection has been complaining of fever since then initial workup today shows evidence of elevated liver enzymes gallstones but no evidence of cholecystitis and HIDA scan was negative UA has been negative chest x-ray with no pneumonia 2-patient did have a positive blood culture with Staphylococcus hemolyticus with a question of possible skin contamination blood culture has been repeated which are currently pending. 3patient did have a CT of abdominal pelvis as well as chest did not show evid ence of colitis abscess or pneumonia patient fever did respond to Zosyn to continue however keeping in mind significantly for now but is seen on the CAT scan may be related to his CLL and a question of possible conversion to acute phase we will check his inflammatory markers with a.m. lab Dictation was produced using webmeation software. please excuse any grammatical, word or spelling errors. Time with Patient: Less than 30
[2024-04-16] MEDS: BENZOCAINE 20% HEMORRHOIDAL OINT 28GM RECTAL PRN (16:52)
[2024-04-17 07:02] LABS: African American GFR (CKD) 53 (>60 ml/min/1.73 sqM); Anion Gap 4 mmol/L; Blood Urea Nitrogen 30 mg/dL (9-20); Calcium 7.9 mg/dL (8.4-10.2); Carbon Dioxide 16 mmol/L (22-30); Chloride 110 mmol/L (98-107); Glucose 101 mg/dL (74-99); Magnesium 1.9 mg/dL (1.6-2.3); Non-African American GFR(CKD) 46 (>60 ml/min/1.73 sqM); Potassium 3.8 mmol/L (3.5-5.1); Sodium 130 mmol/L (137-145)
[2024-04-17 07:17] LABS: Anisocytosis Slight; HCT 21.4 % (39.0-53.0); HGB 7.2 gm/dL (13.0-17.5); Hypochromasia Slight; MCH 29.8 pg (25.0-35.0); MCHC 33.5 g/dL (31.0-37.0); MCV 88.7 fL (80.0-100.0); Mean Platelet Volume 16.9; Poikilocytosis Moderate; RBC 2.41 m/uL (4.30-5.90); RDW 17.1 % (11.5-15.5); WBC 1.5 k/uL (3.8-10.6)
[2024-04-17 08:49] LABS: Eosinophils # (M) 0.02 k/uL (0-0.7); Monocytes # (M) 0.14 k/uL (0-1.0); Neutrophils % (M) 30 %; Nucleated Red Blood Cells 0 /100 WBC (0-0); Total Cells Counted 100
[2024-04-17 08:54] LABS: Neutrophils # (M) 0.45 k/uL (1.3-7.7)
[2024-04-17 09:53] LABS: Mean Platelet Volume 12.8
[2024-04-17 09:58] LABS: Platelet Count 73 k/uL (150-450)
--- NOTE | 2024-04-17 12:40 | US ---
EXAMINATION TYPE: US venous doppler duplex LE RT DATE OF EXAM: 04/17/2024 12:27 PM COMPARISON: NONE CLINICAL INDICATION: Male, 58 years old with history of LE edema; edema SIDE PERFORMED: Right TECHNIQUE: The lower extremity deep venous system is examined utilizing real time linear array sonog jillian with graded compression, doppler sonography and color-flow sonography. VESSELS IMAGED: Common Femoral Vein Deep Femoral Vein Greater Saphenous Vein * Femoral Vein Popliteal Vein Small Saphenous Vein * Proximal Calf Veins (* superficial vessels) Right Leg: Negative for DVT IMPRESSION: 1. Right lower extremity ultrasound negative for deep venous thrombosis [facility], , 04/17/2024 12:37 PM
--- NOTE | 2024-04-17 15:19 | P.PN ---
Subjective Progress Note Date: 04/17/24 Hospital course: Patient is a 58-year-old male with history of CLL and who has been persistently neutropenic for several months presented with persistent fever. In the ED, temperature was 99.5, pulse 108, respiratory rate 18, blood pressure 99/54, saturating at 98% on room air. Laboratory workup showed WBC of 1.5, absolute neutrophil count of 500, 1% band neutrophils, hemoglobin 6.6, platelet less than 30, sodium 134, creatinine 1.85, lactate 2.6, total bili 1.6, AST 93, ALT 54, ALP 285, troponin negative, respiratory viral panel negative. EKG showed sinus rhythm, incomplete right bundle. Chest x-ray did not show any opacities. Gallbladder ultrasound showed hepatomegaly, cholelithiasis without any evidence of cholecystitis, no biliary ductal dilation. Patient started on IV cefepime in the ED, cultures pending. Admitted for febrile neutropenia, unclear source of infection. Oncology consulted. All Systems reviewed and pertinent positives and negatives noted in HPI, all other symptoms are negative Subjective 04/17/24 Patient seen and examined at the bedside. Patient complaining of overnight fevers, otherwise well. Data reviewed today: Labs: WBC 1.5, hemoglobin 7.2, sodium 130, bicarb 16, chloride 110, BUN 30, creatinine 1.61, glucose 101, calcium 8, magnesium 1.9 Images: CT abdomen. No evidence for colitis or abscess diffuse lymphadenopathy and splenomegaly which may be mildly increased from February 2024. Right extremity ultrasound negative for DVT Objective: Vital signs reviewed. General: non toxic, no distress, appears at stated age, normal weight Derm: no unusual rashes/lesions, warm Head: atraumatic, normocephalic, symmetric Eyes: EOMI, no lid lag, anicteric sclera, pupils equal round reactive to light ENT: Nose and ears atraumatic Neck: No cervical lymphadenopathy, trachea midline, supple Mouth: no lip lesion, mucus membranes moist Cardiovascular: S1S2 reg, no murmur, positive dorsalis pedis pulse bilateral, no edema Lungs: CTA bilateral, no rhonchi, no rales, no accessory muscle use Abdominal: soft, mild tenderness to palpation in epigastric region, no guarding Ext: muscle strength 5 out of 5 in all 4 extremities grossly, no gross muscle atrophy, no contractures, Neuro: CN II-XI grossly intact, no gross focal neuro deficits Psych: Alert, oriented, appropriate affect Assessment and Plan: Patient is a 58-year-old male with history of CLL and who has been persistently neutropenic for several months presented with persistent fever. #Febrile neutropenia #History of CLL on chemotherapy #Pancytopenia #Elevated INR #Ig G deficiency -Blood cultures positive for gram-positive cocci in clusters, staph hemolyticus, likely contaminant -Cefepime is discontinued; started on Zosyn 3.375 g IVPB every 8 hours per ID -Transfuse for target hemoglobin greater than 7, platelets greater than 20 with fever -No active bleeding, continue to monitor CBC -Oncology and ID consulted - galactomannan, beta D glucan, CrAg ordered to r/o fungal infection etiology - CT of the abdomen pelvis - increased lymphadenopathy and splenomegaly - Case discussed with ID, consider other infectious causes including fungal - IVIG administration per hematology #Acute kidney injury, likely prerenal #Non-anion gap metabolic acidosis #Lactic acidosis #Cholelithiasis #Transaminitis and hyperbilirubinemia -Renal ultrasound shows splenomegaly and pelvic masses likely related lymphadenopathy -Monitor I's and O's -Continue IV fluids currently running at 75 cc an hour normal saline #Diarrhea #IgA deficiency C. difficile PCR and EIA ordered to rule out C. difficile infection = not sent due to formed stool Ordered stool culture, stool ova and parasite, lactoferrin, Giardia antigen - no results -CMV IgG/IgM = IgG+, IgM- Chronic: Gout: Continue with allopurinol 300 mg p.o. daily GERD: Continue with Protonix 40 mg p.o. daily BPH: Continue with Flomax 0.4 mg. Daily The patient is admitted with an anticipated greater than 2 midnight stay as inpatient status for evaluation of febrile neutropenia. Surrogate decision-maker: Spouse CODE STATUS: Full code DVT prophylaxis: Contraindicated Anticipated discharge date: Pending clinical course Anticipated discharge place: Pending clinical course I saw and evaluated the patient during the gonsalse and critical portions of this encounter, and discussed the case in detail with the resident author of this note, I agree with the Assessment and Plan, and my changes, if any, are highlighted in blue. Objective - Vital Signs Vital signs: Vital Signs Temp 100.5 F H 04/17/24 04:00 Pulse 112 H 04/17/24 04:00 Resp 20 04/17/24 04:00 BP 105/46 04/17/24 04:00 Pulse Ox 91 L 04/17/24 04:00 FiO2 Intake & Output 04/16/24 04/17/24 04/17/24 18:59 06:59 18:59 Intake Total 1977 325 Balance 1977 325 Weight 104.6 kg Intake: IV 225 0.9 225 Intake, IV Titration 100 Amount Piperacillin-Tazobactam 3 100 .375 gm In Sodium Chloride 0.9% 100 ml @ 25 mls/hr IVPB Q8HR [facility] Rx# :[id number] Oral 1977 Other: Voiding Method Toilet Toilet Urinal Urinal # Voids 1 # Bowel Movements 1 - Labs CBC & Chem 7: 04/17/24 09:39 04/17/24 06:20 Labs: Abnormal Lab Results - Last 24 Hours (Table) 04/15/24 04/16/24 04/16/24 Range/Units 06:34 07:03 07:03 WBC 2.8 L (3.8-10.6) k/uL RBC 2.55 L (4.30-5.90) m/uL Hgb 7.7 L (13.0-17.5) gm/dL Hct 22.2 L (39.0-53.0) % RDW 16.4 H (11.5-15.5) % Plt Count (150-450) k/uL Sodium 130 L (137-145) mmol/L Chloride (98-107) mmol/L Carbon Dioxide 15 L (22-30) mmol/L BUN 30 H (9-20) mg/dL Creatinine 1.37 H (0.66-1.25) mg/dL Glucose (74-99) mg/dL Calcium 7.7 L (8.4-10.2) mg/dL Procalcitonin (0.02-0.50) ng/mL CMV IgG Ab Reactive A (Nonreactive) 04/16/24 04/16/24 04/17/24 Range/Units 07:03 13:43 06:20 WBC 1.5 L (3.8-10.6) k/uL RBC 2.41 L (4.30-5.90) m/uL Hgb 7.2 L (13.0-17.5) gm/dL Hct 21.4 L (39.0-53.0) % RDW 17.1 H (11.5-15.5) % Plt Count 66 L (150-450) k/uL Sodium (137-145) mmol/L Chloride (98-107) mmol/L Carbon Dioxide (22-30) mmol/L BUN (9-20) mg/dL Creatinine (0.66-1.25) mg/dL Glucose (74-99) mg/dL Calcium (8.4-10.2) mg/dL Procalcitonin 0.65 H (0.02-0.50) ng/mL CMV IgG Ab (Nonreactive) 04/17/24 Range/Units 06:20 WBC (3.8-10.6) k/uL RBC (4.30-5.90) m/uL Hgb (13.0-17.5) gm/dL Hct (39.0-53.0) % RDW (11.5-15.5) % Plt Count (150-450) k/uL Sodium 130 L (137-145) mmol/L Chloride 110 H (98-107) mmol/L Carbon Dioxide 16 L (22-30) mmol/L BUN 30 H (9-20) mg/dL Creatinine 1.61 H (0.66-1.25) mg/dL Glucose 101 H (74-99) mg/dL Calcium 7.9 L (8.4-10.2) mg/dL Procalcitonin (0.02-0.50) ng/mL CMV IgG Ab (Nonreactive) Microbiology - Last 24 Hours (Table) 04/14/24 15:01 Blood Culture - Preliminary Blood 04/12/24 17:26 Blood Culture Gram Stain - Final Blood Blood Culture - Final Staphylococcus haemolyticus Molecular ID
[2024-04-17 15:25] VITALS: BMI 29.6
--- NOTE | 2024-04-17 16:36 | P.PN ---
Subjective Progress Note Date: 04/17/24 Principal diagnosis: Fever, CLL In f/u patient is noticing shortness of breath on exertion, it is a chore just to get from the bed to the bathroom, the cough is dry and nagging. Patient continues to have intermittent fevers. Patient denies nausea or vomiting, he is able to tolerate a fair amount of oral intake, he does fill up quickly. No acute changes in bowel or bladder habits. Objective - Vital Signs Vital signs: Vital Signs Temp 98.8 F 04/17/24 11:59 Pulse 107 H 04/17/24 14:30 Resp 16 04/17/24 11:59 BP 122/61 04/17/24 11:59 Pulse Ox 95 04/17/24 11:59 FiO2 Intake & Output 04/16/24 04/17/24 04/17/24 18:59 06:59 18:59 Intake Total 1977 540 Balance 1977 540 Weight 104.6 kg 104.6 kg Intake: IV 225 0.9 225 Intake, IV Titration 100 Amount Piperacillin-Tazobactam 3 100 .375 gm In Sodium Chloride 0.9% 100 ml @ 25 mls/hr IVPB Q8HR [facility] Rx# :[id number] Oral 1977 Other: Voiding Method Toilet Toilet Urinal Urinal # Voids 1 # Bowel Movements 1 - Constitutional General appearance: Present: average body habitus, cooperative, mild distress - EENT Eyes: Present: anicteric sclerae, EOMI ENT: Present: hearing grossly normal, normal oropharynx - Respiratory Respiratory: bilateral: CTA - Cardiovascular Rhythm: regular Heart sounds: normal: S1, S2 Abnormal Heart Sounds: Absent: systolic murmur, diastolic murmur, rub, S3 Gallop, S4 Gallop, click, other - Peripheral edema leg Peripheral Edema: bilateral: Trace - Gastrointestinal General gastrointestinal: Present: distended, normal bowel sounds, soft, splenomegaly - Neurologic Neurologic: Present: CNII-XII intact - Musculoskeletal Musculoskeletal: Present: generalized weakness, strength equal bilaterally - Psychiatric Psychiatric: Present: A&O x's 3, appropriate affect, intact judgment & insight - Labs CBC & Chem 7: 04/17/24 09:39 04/17/24 06:20 Labs: Abnormal Lab Results - Last 24 Hours (Table) 04/16/24 04/16/24 04/16/24 Range/Units 06:50 07:03 07:03 WBC (3.8-10.6) k/uL RBC (4.30-5.90) m/uL Hgb (13.0-17.5) gm/dL Hct (39.0-53.0) % RDW (11.5-15.5) % Plt Count (150-450) k/uL Neutrophils # (Manual) 0.78 L (1.3-7.7) k/uL Lymphocytes # (Manual) (1.0-4.8) k/uL Metamyelocytes # (Man) 0.17 H (0) k/uL Sodium (137-145) mmol/L Chloride (98-107) mmol/L Carbon Dioxide (22-30) mmol/L BUN (9-20) mg/dL Creatinine (0.66-1.25) mg/dL Glucose (74-99) mg/dL Calcium (8.4-10.2) mg/dL Procalcitonin 0.65 H (0.02-0.50) ng/mL Stool Lactoferrin Positive A (Negative) 04/17/24 04/17/24 04/17/24 Range/Units 06:20 06:20 09:39 WBC 1.5 L (3.8-10.6) k/uL RBC 2.41 L (4.30-5.90) m/uL Hgb 7.2 L (13.0-17.5) gm/dL Hct 21.4 L (39.0-53.0) % RDW 17.1 H (11.5-15.5) % Plt Count 73 L (150-450) k/uL Neutrophils # (Manual) 0.45 L* (1.3-7.7) k/uL Lymphocytes # (Manual) 0.90 L (1.0-4.8) k/uL Metamyelocytes # (Man) (0) k/uL Sodium 130 L (137-145) mmol/L Chloride 110 H (98-107) mmol/L Carbon Dioxide 16 L (22-30) mmol/L BUN 30 H (9-20) mg/dL Creatinine 1.61 H (0.66-1.25) mg/dL Glucose 101 H (74-99) mg/dL Calcium 7.9 L (8.4-10.2) mg/dL Procalcitonin (0.02-0.50) ng/mL Stool Lactoferrin (Negative) Microbiology - Last 24 Hours (Table) 04/14/24 15:01 Blood Culture - Preliminary Blood 04/12/24 17:26 Blood Culture Gram Stain - Final Blood Blood Culture - Final Staphylococcus haemolyticus Molecular ID - Imaging and Cardiology CT scan - abdomen: report reviewed CT scan - chest: report reviewed CT scan - pelvis: report reviewed Venous US: report reviewed Assessment and Plan (1) Fever Current Visit: Yes Status: Acute Priority: High Code(s): R50.9 - FEVER, UNSPECIFIED SNOMED Code(s): 581496363 (2) CLL (chronic lymphocytic leukemia) Current Visit: Yes Status: Acute Priority: High Code(s): C91.10 - CHRONIC LYMPHOCYTIC LEUK OF B-CELL TYPE NOT ACHIEVE REMIS SNOMED Code(s): 36273242 (3) Pancytopenia Current Visit: Yes Status: Acute Priority: High Code(s): D61.818 - OTHER PANCYTOPENIA SNOMED Code(s): 210866114 Plan: CLL, fever, pancytopenia -Case was discussed with Primary Oncologist as well as Infectious Disease. It is felt that the patient's fevers are constitutional symptom and secondary to CLL vs infection. Imaging is showing worsening lymphadenopathy, though the chest was a 2021 comparison, pt is symptomatic with SOB on exertion and dry hacking cough, likely from LAD. Splenomegaly is preventing pt from adequate inspiration. Splenomegaly is palpable and progressive. -Case discussed with Attending. Attending would like final results of fungal cultures to be returned prior to discharge. Patient will be discharged on antifungals. Agree with plan of care. -Oral Augmentin per ID on discharge. -Acyclovir prophylactic dose ordered for viral coverage. -Chemo to start day after discharge, appt in discharge plan -Fever patter has improved since IVIG -Pancytopenia is stable, no transfusions today.
[2024-04-17] MEDS: ACYCLOVIR 200 MG CAP PO SCH (20:14)
--- NOTE | 2024-04-17 22:50 | P.PN ---
Subjective Progress Note Date: 04/17/24 Principal diagnosis: Reason for follow-up is fever and bacteremia Patient is a 58-year-old male with a past medical history significant for leukemia last chemo around 2018 apparently recently did have resection of the right axillary lymph node now admitted to hospital with a fever did have a positive blood culture with gram-positive cocci. On today's evaluation that is 04/17/2024, Patient did have a fever of 100.5 F at 4 AM the patient is afebrile since then, patient mention feeling slightly better he is breathing comfortably currently on room air he denies having any chest pain or shortness of breath he did have a cough not bringing up any sputum no nausea vomiting abdominal pain or diarrhea. Patient did have a white count of 1.5 creatinine is 1.61 procalcitonin 0.65 Objective - Vital Signs Vital signs: Vital Signs Temp 97.6 F 04/17/24 08:23 Pulse 101 H 04/17/24 08:23 Resp 18 04/17/24 08:23 BP 105/57 04/17/24 08:23 Pulse Ox 92 L 04/17/24 08:23 FiO2 Intake & Output 04/16/24 04/17/24 04/17/24 18:59 06:59 18:59 Intake Total 1977 540 Balance 1977 540 Weight 104.6 kg Intake: IV 225 0.9 225 Intake, IV Titration 100 Amount Piperacillin-Tazobactam 3 100 .375 gm In Sodium Chloride 0.9% 100 ml @ 25 mls/hr IVPB Q8HR [facility] Rx# :[id number] Oral 1977 Other: Voiding Method Toilet Toilet Urinal Urinal # Voids 1 # Bowel Movements 1 - Exam GENERAL DESCRIPTION: Middle-age male up in bed in no distress RESPIRATORY SYSTEM: Unlabored breathing , decreased breath sounds at bases HEART: S1 S2 regular rate and rhythm , ABDOMEN: Soft , did have some abdominal distention but no significant tenderness EXTREMITIES: Right axillary incision is currently healing with no swelling redness or drainage - Labs CBC & Chem 7: 04/17/24 09:39 04/17/24 06:20 Labs: Abnormal Lab Results - Last 24 Hours (Table) 04/16/24 04/16/24 04/17/24 Range/Units 07:03 13:43 06:20 WBC 1.5 L (3.8-10.6) k/uL RBC 2.41 L (4.30-5.90) m/uL Hgb 7.2 L (13.0-17.5) gm/dL Hct 21.4 L (39.0-53.0) % RDW 17.1 H (11.5-15.5) % Plt Count 66 L (150-450) k/uL Neutrophils # (Manual) 0.45 L* (1.3-7.7) k/uL Lymphocytes # (Manual) 0.90 L (1.0-4.8) k/uL Sodium (137-145) mmol/L Chloride (98-107) mmol/L Carbon Dioxide (22-30) mmol/L BUN (9-20) mg/dL Creatinine (0.66-1.25) mg/dL Glucose (74-99) mg/dL Calcium (8.4-10.2) mg/dL Procalcitonin 0.65 H (0.02-0.50) ng/mL 04/17/24 04/17/24 Range/Units 06:20 09:39 WBC (3.8-10.6) k/uL RBC (4.30-5.90) m/uL Hgb (13.0-17.5) gm/dL Hct (39.0-53.0) % RDW (11.5-15.5) % Plt Count 73 L (150-450) k/uL Neutrophils # (Manual) (1.3-7.7) k/uL Lymphocytes # (Manual) (1.0-4.8) k/uL Sodium 130 L (137-145) mmol/L Chloride 110 H (98-107) mmol/L Carbon Dioxide 16 L (22-30) mmol/L BUN 30 H (9-20) mg/dL Creatinine 1.61 H (0.66-1.25) mg/dL Glucose 101 H (74-99) mg/dL Calcium 7.9 L (8.4-10.2) mg/dL Procalcitonin (0.02-0.50) ng/mL Microbiology - Last 24 Hours (Table) 04/14/24 15:01 Blood Culture - Preliminary Blood 04/12/24 17:26 Blood Culture Gram Stain - Final Blood Blood Culture - Final Staphylococcus haemolyticus Molecular ID Assessment and Plan (1) Fever Current Visit: Yes Status: Acute Priority: High Code(s): R50.9 - FEVER, UNSPECIFIED SNOMED Code(s): 452014511 (2) Leukopenia Current Visit: Yes Status: Acute Code(s): D72.819 - DECREASED WHITE BLOOD CELL COUNT, UNSPECIFIED SNOMED Code(s): 32997686 (3) Bacteremia Current Visit: Yes Status: Acute Code(s): R78.81 - BACTEREMIA SNOMED Code(s): 4526151 Plan: 1patient with fever and leukopenia in this patient who did have a history of leukemia and recently did have a right axillary lymph node dissection has been complaining of fever since then initial workup today shows evidence of elevated liver enzymes gallstones but no evidence of cholecystitis and HIDA scan was ne gative UA has been negative chest x-ray with no pneumonia 2-patient did have a positive blood culture with Staphylococcus hemolyticus with a question of possible skin contamination blood culture has been repeated which are currently pending. 3patient did have a CT of abdominal pelvis as well as chest did not show evidence of colitis abscess or pneumonia patient fever did respond to Zosyn to continue however keeping in mind significantly abnormality/lymphadenopathy seen on the CAT scan may be related to his CLL and a question of possible conversion to acute phase, this has been discussed in detail with the hematology oncology were on the same page may consider short course of oral Augmentin on discharge Dictation was produced using [employer] dictation software. please excuse any grammatical, word or spelling errors. Time with Patient: Less than 30
[2024-04-18 06:37] LABS: Anisocytosis Slight; HCT 21.5 % (39.0-53.0); Hypochromasia Moderate; MCHC 32.8 g/dL (31.0-37.0); MCV 88.5 fL (80.0-100.0); Mean Platelet Volume 16.2; Poikilocytosis Slight; RBC 2.42 m/uL (4.30-5.90)
[2024-04-18 06:53] LABS: African American GFR (CKD) 52 (>60 ml/min/1.73 sqM); Anion Gap 5 mmol/L; Blood Urea Nitrogen 28 mg/dL (9-20); Calcium 7.8 mg/dL (8.4-10.2); Carbon Dioxide 17 mmol/L (22-30); Chloride 109 mmol/L (98-107); Glucose 103 mg/dL (74-99); Non-African American GFR(CKD) 45 (>60 ml/min/1.73 sqM); Potassium 3.8 mmol/L (3.5-5.1); Sodium 131 mmol/L (137-145)
[2024-04-18 08:06] LABS: Platelet Count 50 k/uL (150-450)
[2024-04-18 08:08] LABS: WBC 1.3 k/uL (3.8-10.6)
[2024-04-18 09:31] VITALS: RESP 16
[2024-04-18 09:41] LABS: Neutrophils % (M) 27 %
[2024-04-18 09:42] LABS: Lymphocytes # (M) 0.82 k/uL (1.0-4.8); Monocytes # (M) 0.13 k/uL (0-1.0); Neutrophils # (M) 0.35 k/uL (1.3-7.7); Nucleated Red Blood Cells 0 /100 WBC (0-0); Total Cells Counted 100
--- NOTE | 2024-04-18 10:44 | CA ---
Transthoracic Echo Report Name: Francis Novak Age: 58 Gender: M : 1965 Exam Date: 04/17/2024 13:33 Exam Location: [facility] Ht (in): 74 Wt (lb): 220 Ordering Physician: Varghese Monte MD Attending/Referring Phys: Beer Merchant Glenda Jeter RDCS Procedure CPT: Indications: volume overload Cardiac Hx: Technical Quality: Good Contrast 1: Total Dose (mL): Contrast 2: Total Dose (mL): MEASUREMENTS (Male / Female) Normal Values 2D ECHO LV Diastolic Diameter PLAX 4.5 cm 4.2 - 5.9 / 3.9 - 5.3 cm LV Systolic Diameter PLAX 3.3 cm IVS Diastolic Thickness 1.5 cm 0.6 - 1.0 / 0.6 - 0.9 cm LVPW Diastolic Thickness 1.4 cm 0.6 - 1.0 / 0.6 - 0.9 cm LV Relative Wall Thickness 0.7 RV Internal Dim ED PLAX 3.8 cm LA Systolic Diameter LX 5.1 cm 3.0 - 4.0 / 2.7 - 3.8 cm LV Diastolic Volume MOD BP 135.8 cm??? 67 - 155 / 56 - 104 cm??? LV Systolic Volume MOD BP 43.1 cm??? 22 - 58 / 19 - 49 cm??? LV Ejection Fraction MOD BP 68.2 % >= 55 % LV Cardiac Index MOD BP 4554.1 cm???/min???m??? LV Diastolic Volume MOD 4C 105.5 cm??? LV Systolic Volume MOD 4C 35.0 cm??? LV Ejection Fraction MOD 4C 66.9 % LV Cardiac Index MOD 4C 3468.3 cm???/min???m??? LV Diastolic Length 4C 8.2 cm LV Systolic Length 4C 6.5 cm LV Diastolic Volume MOD 2C 162.8 cm??? LV Systolic Volume MOD 2C 52.6 cm??? LV Ejection Fraction MOD 2C 67.7 % LV Cardiac Index MOD 2C 5417.7 cm???/min???m??? LV Diastolic Length 2C 8.9 cm LV Systolic Length 2C 6.4 cm LA Volume 84.9 cm??? 18 - 58 / 22 - 52 cm??? LA Volume Index 36.9 cm???/m??? 16 - 28 cm???/m??? M-MODE Aortic Root Diameter MM 3.7 cm AV Cusp Separation MM 2.7 cm DOPPLER MV Area PHT 6.6 cm??? Mitral E Point Velocity 129.6 cm/s Mitral A Point Velocity 143.7 cm/s Mitral E to A Ratio 0.9 MV Deceleration Time 115.1 ms TR Peak Velocity 198.2 cm/s TR Peak Gradient 15.7 mmHg Right Ventricular Systolic Press 22.0 mmHg FINDINGS Left Ventricle Left ventricular ejection fraction is estimated at 60-65 %. Left ventricular cavity size normal. Moderate concentric left ventricular hypertrophy. Normal left ventricular wall motion. Right Ventricle Moderate right ventricular dilatation. Right ventricular systolic pressure within normal limits. Right Atrium Normal right atrial size. No right atrial thrombus or mass seen. Left Atrium Moderately increased left atrial diameter. Moderately increased left atrial volume. Mildly increased left atrial area. Mitral Valve Mitral valve thickened. Mitral annular calcification. Trace to mild mitral regurgitation. Aortic Valve Trileaflet aortic valve. No aortic valve stenosis or regurgitation. Tricuspid Valve Structurally normal tricuspid valve. Mild tricuspid regurgitation. Pulmonic Valve Structurally normal pulmonic valve. No pulmonic regurgitation. Pericardium Small pericardial effusion. Aorta Normal size aortic root and proximal ascending aorta. CONCLUSIONS Normal biventricular systolic function Moderately dilated right ventricle Normal pulmonary artery systolic pressure No significant valvular abnormalities noted Small pericardial effusion Previewed by: Dr. Kong Edgar MD (Electronically Signed) Final Date: 18 April 2024 10:43
[2024-04-18 12:09] VITALS: BP 110/55; PULSE 101; TEMP 98.6
--- NOTE | 2024-04-18 18:28 | P.DS ---
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 In the ED, temperature was 99.5, pulse 108, respiratory rate 18, blood pressure 99/54, saturating at 98% on room air. Laboratory workup showed WBC of 1.5, absolute neutrophil count of 500, 1% band neutrophils, hemoglobin 6.6, platelet less than 30, sodium 134, creatinine 1.85, lactate 2.6, total bili 1.6, AST 93, ALT 54, ALP 285, troponin negative, respiratory viral panel negative. EKG showed sinus rhythm, incomplete right bundle. Chest x-ray did not show any opacities. Gallbladder ultrasound showed hepatomegaly, cholelithiasis without any evidence of cholecystitis, no biliary ductal dilation. Patient started on IV cefepime in the ED, cultures pending. Admitted for febrile neutropenia, unclear source of infection. Oncology consulted. While inpatient blood cultures positive for gram-positive cocci in clusters, staph hemolyticus, this was felt to be a contaminant; for neutropenic fever he was treated with cefepime initially, then Zosyn and IVIG. He continued to have nightly spikes of fever which would subsequently resolve. He was also found to have transaminitis and diarrhea. CT of abdomen and pelvis showed increased lymphadenopathy and splenomegaly. Case was discovered with ID, and fungal pathology for fevers was pursued, but felt to be very unlikely given he had no focal signs of infection. He he was otherwise stable through his hospital stay. Patient to be discharged to home, in stable condition. He is discharged with flucanazole, Augmentin and acetaminophen. He is to begin chemotherapy as outpatient. He is to follow-up with PCP and Dr. Campos. 1, 3beta D glucan still pending on discharge and will be followed up by patient's oncologist PHYSICAL EXAMINATION: General: non toxic, no distress, appears at stated age, normal weight Derm: no unusual rashes/lesions, warm Head: atraumatic, normocephalic, symmetric Eyes: EOMI, no lid lag, anicteric sclera, pupils equal round reactive to light ENT: Nose and ears atraumatic Neck: No cervical lymphadenopathy, trachea midline, supple Mouth: no lip lesion, mucus membranes moist Cardiovascular: S1S2 reg, no murmur, positive dorsalis pedis pulse bilateral, no edema Lungs: CTA bilateral, no rhonchi, no rales, no accessory muscle use Abdominal: soft, mild tenderness to palpation in epigastric region, no guarding Ext: muscle strength 5 out of 5 in all 4 extremities grossly, no gross muscle atrophy, no contractures, Neuro: CN II-XI grossly intact, no gross focal neuro deficits Psych: Alert, oriented, appropriate affect Dictation was produced using [employer] dictation software. please excuse any grammatical, word or spelling errors. I saw and evaluated the patient during the gonsales and critical portions of this encounter, and discussed the case in detail with the resident author of this note, I agree with the Assessment and Plan, and my changes, if any, are highlighted in blue. Patient Condition at Discharge: Stable Plan - Discharge Summary Discharge Rx Participant: No New Discharge Prescriptions: New Fluconazole [Diflucan] 100 mg PO DAILY 30 Days #30 tablet Amoxic-Pot Clav 875-125Mg [Augmentin 875-125] 1 tab PO Q12HR 10 Days #20 tab Acetaminophen Tab [Tylenol] 650 mg PO Q6HR PRN tab PRN Reason: Mild Pain Or Fever > 100.5 Continue Tamsulosin HCl [Flomax] 0.4 mg PO DAILY oxyCODONE HCL [OxyIR] 5 mg PO Q6H PRN 3 Days #6 tab PRN Reason: Breakthrough Pain Ondansetron Odt [Zofran ODT] 4 - 8 mg PO Q4-6H PRN PRN Reason: Nausea Multivitamins, Thera [Multivitamin (formulary)] 1 tab PO DAILY Omeprazole [PriLOSEC] 40 mg PO DAILY allopurinoL 300 mg PO DAILY Cranberry Fruit Extract [Cranberry] 500 mg PO DAILY Cholecalciferol [Vitamin D3 (125 Mcg = 5000 Iu)] 125 mcg PO DAILY Acyclovir [Zovirax] 400 mg PO BID Discontinued Venetoclax Pom [Venclexta Pom Starting Pack (10mg/100mg/50mg)] 1 tab PO DIRECTED levoFLOXacin 500 mg PO DAILY Discharge Medication List Tamsulosin HCl [Flomax] 0.4 mg PO DAILY 06/26/22 [History] allopurinoL 300 mg PO DAILY 04/05/24 [History] oxyCODONE HCL [OxyIR] 5 mg PO Q6H PRN 3 Days #6 tab 04/06/24 [Rx] Acyclovir [Zovirax] 400 mg PO BID 04/12/24 [History] Cholecalciferol [Vitamin D3 (125 Mcg = 5000 Iu)] 125 mcg PO DAILY 04/12/24 [History] Cranberry Fruit Extract [Cranberry] 500 mg PO DAILY 04/12/24 [History] Multivitamins, Thera [Multivitamin (formulary)] 1 tab PO DAILY 04/12/24 [History] Omeprazole [PriLOSEC] 40 mg PO DAILY 04/12/24 [History] Ondansetron Odt [Zofran ODT] 4 - 8 mg PO Q4-6H PRN 04/12/24 [History] Acetaminophen Tab [Tylenol] 650 mg PO Q6HR PRN tab 04/18/24 [Rx] Amoxic-Pot Clav 875-125Mg [Augmentin 875-125] 1 tab PO Q12HR 10 Days #20 tab 04/18/24 [Rx] Fluconazole [Diflucan] 100 mg PO DAILY 30 Days #30 tablet 04/18/24 [Rx] Follow up Appointment(s)/Referral(s): Leonor Kumar DO [Primary Care Provider] - 1-2 days Tung Campos MD [STAFF PHYSICIAN] - 04/20/24 8:30 am (Chemo appt) Discharge Disposition: HOME SELF-CARE
--- NOTE | 2024-04-20 13:00 | P.PN ---
Subjective Progress Note Date: 04/18/24 Principal diagnosis: Reason for follow-up is fever and bacteremia Patient is a 58-year-old male with a past medical history significant for leukemia last chemo around 2018 apparently recently did have resection of the right axillary lymph node now admitted to hospital with a fever did have a positive blood culture with gram-positive cocci. On today's evaluation that is 04/18/2024,the patient did have a fever of 102.1 F last night however the patient is afebrile this afternoon, patient denies having any headache or URI symptoms no chest pain or shortness of breath he did have occasional dry cough no nausea vomiting no abdominal pain no diarrhea patient mention overall feeling better. Patient white count is 1.3 creatinine is 1.65 blood culture repeat has been negative Objective - Vital Signs Vital signs: Vital Signs Temp 99.9 F H 04/18/24 08:00 Pulse 110 H 04/18/24 08:00 Resp 16 04/18/24 08:00 BP 123/56 04/18/24 08:00 Pulse Ox 91 L 04/18/24 08:00 FiO2 Intake & Output 04/17/24 04/18/24 04/18/24 18:59 06:59 18:59 Intake Total 898 100 Balance 898 100 Weight 104.6 kg 107.4 kg Intake: IV 100 0.9 100 Oral 898 Other: Voiding Method Toilet Toilet Urinal Urinal # Voids 2 - Exam GENERAL DESCRIPTION: Middle-age male up in bed in no distress RESPIRATORY SYSTEM: Unlabored breathing , decreased breath sounds at bases HEART: S1 S2 regular rate and rhythm , ABDOMEN: Soft , did have some abdominal distention but no significant tenderness EXTREMITIES: Right axillary incision is currently healing with no swelling redness or drainage - Labs CBC & Chem 7: 04/18/24 06:26 04/18/24 06:26 Labs: Abnormal Lab Results - Last 24 Hours (Table) 04/16/24 04/18/24 04/18/24 Range/Units 06:50 06:26 06:26 WBC 1.3 L* (3.8-10.6) k/uL RBC 2.42 L (4.30-5.90) m/uL Hgb 7.0 L (13.0-17.5) gm/dL Hct 21.5 L (39.0-53.0) % RDW 17.0 H (11.5-15.5) % Plt Count 50 L (150-450) k/uL Neutrophils # (Manual) 0.35 L* (1.3-7.7) k/uL Lymphocytes # (Manual) 0.82 L (1.0-4.8) k/uL Sodium 131 L (137-145) mmol/L Chloride 109 H (98-107) mmol/L Carbon Dioxide 17 L (22-30) mmol/L BUN 28 H (9-20) mg/dL Creatinine 1.65 H (0.66-1.25) mg/dL Glucose 103 H (74-99) mg/dL Calcium 7.8 L (8.4-10.2) mg/dL Stool Lactoferrin Positive A (Negative) Microbiology - Last 24 Hours (Table) 04/14/24 15:01 Blood Culture - Preliminary Blood Assessment and Plan (1) Fever Status: Acute Priority: High Code(s): R50.9 - FEVER, UNSPECIFIED SNOMED Code(s): 128124497 (2) Leukopenia Status: Acute Code(s): D72.819 - DECREASED WHITE BLOOD CELL COUNT, UNSPECIFIED SNOMED Code(s): 76208545 (3) Bacteremia Status: Acute Code(s): R78.81 - BACTEREMIA SNOMED Code(s): 0421533 Plan: 1patient with fever and leukopenia in this patient who did have a history of CLL and recently did have a right axillary lymph node dissection has been complaining of fever since then initial workup today shows evidence of elevated liver enzymes gallstones but no evidence of cholecystitis and HIDA scan was negative UA has been negative chest x-ray with no pneumonia, patient did have extensive workup done during this hospital stay including CT of the chest did n ot show any pneumonia CT abdominal pelvis was negative for acute finding both CAT scan did shows worsening lymphadenopathy and is a high clinical suspicious for possible acute transformation of his CLL this has been discussed in detail with the admitting team as well as with the hematology oncology and the patient fever more likely related to his underlying malignancy rather than true infectious etiology as despite extensive workup we did not find any focus of infection and his culture has been negative patient seem to be agreeable to the plan he will be following with the oncology determine chemotherapy care has been discussed in detail with the admitting physician in person as well as on the floor as well as with oncologist both the BUSINESS MACHINES TEACHER and the Dr. Tian Dictation was produced using [employer] dictation software. please excuse any grammatical, word or spelling errors. Time with Patient: Greater than 30
== END 2024-04-18 14:05 | disposition home or self-care (01) | DRG 809 ==
LOC: EC 13:18 → 3SCARD 17:18
PROVIDERS: ADMIT Student in an Organized Health Care Education/Training Program; ATTEND Student in an Organized Health Care Education/Training Program
PROC: 30233N1 Transfusion of Nonautologous Red Blood Cells into Peripheral Vein, Percutaneous Approach (ICD-10-PCS; principal; 2024-04-12)
DX: D70.9 Neutropenia, unspecified (principal); C91.10 Chronic lymphocytic leukemia of B-cell type not having achieved remission; D80.2 Selective deficiency of immunoglobulin A [IgA]; E87.20 Acidosis, unspecified; N17.9 Acute kidney failure, unspecified; R50.81 Fever presenting with conditions classified elsewhere; R16.1 Splenomegaly, not elsewhere classified; D61.818 Other pancytopenia; R79.1 Abnormal coagulation profile; K80.20 Calculus of gallbladder without cholecystitis without obstruction; R74.01 Elevation of levels of liver transaminase levels; N40.0 Benign prostatic hyperplasia without lower urinary tract symptoms; K21.9 Gastro-esophageal reflux disease without esophagitis; M10.9 Gout, unspecified; Z79.899 Other long term (current) drug therapy; Z87.891 Personal history of nicotine dependence; Z92.21 Personal history of antineoplastic chemotherapy
CPT/HCPCS: 36415; 71046; 71250; 74178; 76705; 76770; 78226; 80048; 80053; 81001; 82784; 83010; 83605; 83615; 83630; 83735; 84145; 84484; 85025; 85045; 85049; 85610; 85730; 86003; 86644; 86645; 86850; 86900; 86901; 86920; 87040; 87045; 87046; 87077; 87186; 87329; 87636; 93005; 93306; 96365; 96375; 99291

== ENCOUNTER 2024-08-15 05:40 | Day surgery (SDC) | payer BC, OTHER ==
[2024-08-15] MEDS: IV FLUID CONTINUATION 1,000 ML IV ONE (06:40)
[2024-08-15] MEDS: LIDOCAINE 1% (10MG/ML) FOR IV START INTRADERMA PRN (06:40)
[2024-08-15] MEDS: LACTATED RINGERS 1,000 ML IV SCH (06:40)
[2024-08-15 07:00] LABS: Basophils % (A) 0 %; Eosinophils # (A) 0.2 k/uL (0-0.7); Eosinophils % (A) 6 %; HCT 35.3 % (39.0-53.0); Lymphocytes # (A) 0.5 k/uL (1.0-4.8); Lymphocytes % (A) 12 %; MCHC 34.2 g/dL (31.0-37.0); MCV 84.8 fL (80.0-100.0); Mean Platelet Volume 8.4; Monocytes # (A) 0.4 k/uL (0-1.0); Monocytes % (A) 10 %; Neutrophils # (A) 2.7 k/uL (1.3-7.7); Neutrophils % (A) 71 %; Platelet Count 134 k/uL (150-450); Poikilocytosis Slight; RBC 4.16 m/uL (4.30-5.90); RDW 13.9 % (11.5-15.5); WBC 3.8 k/uL (3.8-10.6)
[2024-08-15] MEDS ORDERED: droPERidol 5 MG/2 ML VIAL IVP PRN (07:00)
[2024-08-15] MEDS: ONDANSETRON 4 MG/2 ML VIAL IVP ONE (07:12)
[2024-08-15] MEDS: DEXAMETHASONE SOD PHOSPHATE 4 MG/ML 1 ML VIAL IV ONE (07:12)
[2024-08-15] MEDS: ACETAMINOPHEN TAB 500 MG TAB PO PRN (07:12)
[2024-08-15] MEDS: HEPARIN SODIUM,PORCINE 5,000 UNIT/ML 1 ML VIAL SQ PRN (07:12)
[2024-08-15 07:14] LABS: African American GFR (CKD) 83 (>60 ml/min/1.73 sqM); Anion Gap 7 mmol/L; Blood Urea Nitrogen 24 mg/dL (9-20); Calcium 10.6 mg/dL (8.4-10.2); Carbon Dioxide 31 mmol/L (22-30); Chloride 102 mmol/L (98-107); Glucose 104 mg/dL (74-99); Non-African American GFR(CKD) 72 (>60 ml/min/1.73 sqM); Sodium 140 mmol/L (137-145)
--- NOTE | 2024-08-15 07:36 | P.GSHP ---
History of Present Illness H&P Date: 08/15/24 Chief Complaint: Inguinal hernia Is a 59-year-old male who has complaints of right inguinal mass. Patient was in the hospital over reducible right inguinal hernia. Past Medical History Past Medical History: Cancer Additional Past Medical History / Comment(s): leukemia - last chemo 05/2018, blood counts abnormal. enlarged lymph node,. CLL (tx starts Tuesday 04/17) History of Any Multi-Drug Resistant Organisms: None Reported Past Surgical History: Hernia Repair, Tonsillectomy Additional Past Surgical History / Comment(s): scar tissue removed from chin, hemorrhoids, biopsies. Left inguinal hernia repair Past Anesthesia/Blood Transfusion Reactions: Postoperative Nausea & Vomiting (PONV) Additional Past Anesthesia/Blood Transfusion Reaction / Comment(s): slow to wake up post anesthesia, no previous blood transfusion Smoking Status: Former smoker - Past Family History Sister(s) Family Medical History: Cancer Additional Family Medical History / Comment(s): cervical Medications and Allergies Home Medications Medication Instructions Recorded Confirmed Type Tamsulosin HCl [Flomax] 0.4 mg PO DAILY 06/26/22 08/10/24 History Cholecalciferol [Vitamin D3 (125 125 mcg PO DAILY 04/12/24 08/10/24 History Mcg = 5000 Iu)] Multivitamins, Thera [Multivitamin 1 tab PO DAILY 04/12/24 08/10/24 History (formulary)] Acetaminophen Tab [Tylenol] 650 mg PO Q6HR PRN tab 04/18/24 08/10/24 Rx Venetoclax Pom [Venclexta Pom 1 tab PO DAILY 08/10/24 08/10/24 History Starting Pack (10mg/100mg/50mg)] Allergies Allergy/AdvReac Type Severity Reaction Status Date / Time No Known Allergies Allergy Verified 08/10/24 11:22 Surgical - Exam Vital Signs Temp Pulse Resp BP Pulse Ox 97.5 F L 81 16 137/72 94 L 08/15/24 06:36 08/15/24 06:36 08/15/24 06:36 08/15/24 06:36 08/15/24 06:36 - General well developed, well nourished, no distress - Eyes PERRL - ENT normal pinna - Neck no masses - Respiratory normal expansion - Cardiovascular Rhythm: regular - Abdomen Abdomen: soft, non tender (Right inguinal hernia) Results - Labs 08/15/24 06:48 08/15/24 06:48 Abnormal Lab Results - Last 24 Hours (Table) 08/15/24 08/15/24 Range/Units 06:48 06:48 RBC 4.16 L (4.30-5.90) m/uL Hgb 12.0 L (13.0-17.5) gm/dL Hct 35.3 L (39.0-53.0) % Plt Count 134 L (150-450) k/uL Lymphocytes # 0.5 L (1.0-4.8) k/uL Carbon Dioxide 31 H (22-30) mmol/L BUN 24 H (9-20) mg/dL Glucose 104 H (74-99) mg/dL Calcium 10.6 H (8.4-10.2) mg/dL Diabetes panel 08/15/24 Range/Units 06:48 Sodium 140 (137-145) mmol/L Potassium 4.0 (3.5-5.1) mmol/L Chloride 102 (98-107) mmol/L Carbon Dioxide 31 H (22-30) mmol/L BUN 24 H (9-20) mg/dL Creatinine 1.10 (0.66-1.25) mg/dL Glucose 104 H (74-99) mg/dL Calcium 10.6 H (8.4-10.2) mg/dL Calcium panel 08/15/24 Range/Units 06:48 Calcium 10.6 H (8.4-10.2) mg/dL Pituitary panel 08/15/24 Range/Units 06:48 Sodium 140 (137-145) mmol/L Potassium 4.0 (3.5-5.1) mmol/L Chloride 102 (98-107) mmol/L Carbon Dioxide 31 H (22-30) mmol/L BUN 24 H (9-20) mg/dL Creatinine 1.10 (0.66-1.25) mg/dL Glucose 104 H (74-99) mg/dL Calcium 10.6 H (8.4-10.2) mg/dL Adrenal panel 08/15/24 Range/Units 06:48 Sodium 140 (137-145) mmol/L Potassium 4.0 (3.5-5.1) mmol/L Chloride 102 (98-107) mmol/L Carbon Dioxide 31 H (22-30) mmol/L BUN 24 H (9-20) mg/dL Creatinine 1.10 (0.66-1.25) mg/dL Glucose 104 H (74-99) mg/dL Calcium 10.6 H (8.4-10.2) mg/dL Assessment and Plan Assessment: Right inguinal hernia. Will perform laparoscopic robotic assisted repair.
[2024-08-15] MEDS ORDERED: PHENYLEPHRINE-0.9% NACL SYG 1,000 MCG/10 ML SYRINGE ONE (07:46)
[2024-08-15] MEDS ORDERED: MIDAZOLAM 2 MG/2 ML VIAL ONE (07:46)
[2024-08-15] MEDS ORDERED: KETAMINE HCL IN 0.9 % NACL 50 MG/5 ML SYRINGE ONE (07:46)
[2024-08-15] MEDS ORDERED: LIDOCAINE 1% INJ 10MG/ML (20 ML MDV) ONE (07:46)
[2024-08-15] MEDS ORDERED: NEOSTIGMINE 1 MG/ML 10 ML VIAL ONE (07:46)
[2024-08-15] MEDS ORDERED: HYDROmorphone (PF) 1 MG/ML ONE (07:46)
[2024-08-15] MEDS ORDERED: SUGAMMADEX SODIUM 100 MG/ML SYR IV ONE (07:46)
[2024-08-15] MEDS ORDERED: ROCURONIUM 10 MG/ML (5 ML VIAL) IV ONE (07:46)
[2024-08-15] MEDS ORDERED: fentaNYL (PF) 50 MCG/ML 2 ML AMP ONE (07:46)
[2024-08-15] MEDS ORDERED: SUCCINYLCHOLINE CHLORIDE 200 MG/10 ML VIAL IV ONE (07:46)
[2024-08-15] MEDS ORDERED: GLYCOPYRROLATE 0.2 MG/ML 2 ML VIAL ONE (07:46)
[2024-08-15] MEDS ORDERED: PROPOFOL 10 MG/ML 20 ML VIAL IV ONE (07:46)
[2024-08-15] MEDS: LIDOCAINE 1%-EPI 1:100,000 20 ML VIAL SQ ONE (08:10)
[2024-08-15 09:14] VITALS: TEMP 97.3
--- NOTE | 2024-08-15 09:22 | P.OP ---
Date of Procedure: 08/15/24 Preoperative Diagnosis: Right inguinal hernia Postoperative Diagnosis: Right inguinal hernia Procedure(s) Performed: Laparoscopic robot-assisted pair of right inguinal hernia ernia Transversus abdominis plane block Excision of cord lipoma Anesthesia: MAC Surgeon: Angelo Powers Estimated Blood Loss (ml): 5 Pathology: other (Cord lipoma) Condition: stable Disposition: PACU Description of Procedure: The patient's placed on the operating table in the supine position. The patient received general anesthesia. The patient's abdomen was prepped and draped in usual sterile fashion. The skin was anesthetized 1% local Xylocaine at the incision sites. Using an 11 blade a skin incision was made at the umbilicus. The fascia was grasped with a [place] and then the peritoneal cavity was entered with the Veress needle. Position of the Veress needle was confirmed with a positive drop test. After adequate insufflation a 5 mm trocar was placed into the peritoneal cavity. The Laparoscope was placed the peritoneal cavity. And a robotic 8 mm trocar was placed in the right lateral position and then another 8 mm robotic trochars placed in the left lateral position. The original 5 mm trocar was exchanged for a 12 mm trocar. A four-quadrant transversus abdominis plane block was performed to xylocaine. The patient was placed in reverse Trendelenburg and then the patient was docked to the robot. Next the peritoneum over top of the hernia was incised and then using blunt and sharp dissection and electrocautery the hernia sac was dissected free from the floor of the inguinal canal. Cord lipoma was tested free sent pathology. The hernia sac was completely reduced into the peritoneal cavity. And then using the Pro fur sewer mesh the hernia was repaired. The peritoneum was then sutured with 20V lock suture. The patient was then undocked the robot. The needle was withd rawn from the peritoneal cavity. The umbilical trocar site was closed with 0 Ethibond suture. The skin was closed interrupted 3-0 Monocryl suture. Dermabond dressing was applied. Patient was sent to recovery in stable condition.
[2024-08-15] MEDS: HYDROmorphone 0.5 MG/0.5 ML SYRINGE IVP PRN (09:31)
[2024-08-15 11:49] VITALS: RESP 16
[2024-08-15 12:30] VITALS: BP 131/64; PULSE 74
== END 2024-08-15 13:15 | disposition home or self-care (01) ==
LOC: OR 05:40
PROVIDERS: ATTEND Surgery
DX: K40.90 Unilateral inguinal hernia, without obstruction or gangrene, not specified as recurrent (principal); D17.6 Benign lipomatous neoplasm of spermatic cord; N40.0 Benign prostatic hyperplasia without lower urinary tract symptoms; Z87.891 Personal history of nicotine dependence; Z90.89 Acquired absence of other organs; Z98.890 Other specified postprocedural states; Z79.899 Other long term (current) drug therapy
CPT/HCPCS: 49650; S2900; 80048; 85025; 88304

== ENCOUNTER 2025-01-08 08:46 | Day surgery (SDC) | payer OTHER ==
[2025-01-08 09:33] VITALS: TEMP 98.1
[2025-01-08] MEDS: LACTATED RINGERS 1,000 ML IV SCH (09:44)
[2025-01-08] MEDS: IV FLUID CONTINUATION 1,000 ML IV ONE (09:45)
[2025-01-08] MEDS ORDERED: PROPOFOL 10 MG/ML 20 ML VIAL IV ONE (10:28)
[2025-01-08 11:07] VITALS: BP 114/67; PULSE 70; RESP 14
--- NOTE | 2025-01-18 13:48 | P.OP ---
Date of Procedure: 01/08/25 Preoperative Diagnosis: screening colonoscopy Postoperative Diagnosis: Normal colonoscopy Procedure(s) Performed: colonoscopy Anesthesia: MAC Surgeon: Angelo Powers Pathology: none sent Condition: stable Disposition: PACU Description of Procedure: the patient was placed on the endoscopy table in the lateral position. He received IV sedation. Digital rectal exam was performed. This revealed no abnormalities. The flexible colonoscope was then placed patient is passed through the entire colon. The ileocecal valve was visualized. The cecum, as and ascending colon appeared normal. The transverse colon and descending colon had a few scattered diverticuli. The sigmoid colon appeared normal. Scope was Ruback the rectum Estronol. Scope withdrawn the patient. Patient will have repeat colonoscopy in 10 years
== END 2025-01-08 11:58 | disposition home or self-care (01) ==
LOC: ORWHC2ENDO 08:46
PROVIDERS: ATTEND Surgery
DX: Z12.11 Encounter for screening for malignant neoplasm of colon (principal); N40.0 Benign prostatic hyperplasia without lower urinary tract symptoms; Z79.899 Other long term (current) drug therapy
CPT/HCPCS: 45378; J2704